=== PATIENT | male | born 1970 | race Caucasian/White ===

== ENCOUNTER 2021-01-01 00:37 | Outpatient (CLI) | payer MEDICAID, SELFPAY ==
--- NOTE | 2021-01-01 | DI.CTLCSR_ITS ---
Exam(s) CT CHEST LUNG CANCER SCREEN EXAM: CT CHEST LUNG CANCER SCREEN CLINICAL HISTORY: SCREENING FOR LUNG CA,CURRENT SMOKER, F17.210. TECHNIQUE: Imaging Protocol: Low Dose Technique CONTRAST MATERIAL: None COMPARISON: No exams were available for comparison FINDINGS: CHEST: LUNGS: There are no ominous pulmonary nodules. There are no confluent infiltrates. No pleural effusi ons. MEDIASTINUM: There is no obvious hilar nor mediastinal adenopathy. CARDIAC: Heart size is normal. There is no pericardial effusion.Caliber of the thoracic aorta is wit hin normal limits. No coronary artery calcification evident OTHER: OSSEOUS: No significant osseous lesions.. IMPRESSION: 1. No significant pulmonary nodules. No infiltrates. No pleural effusions. 2. No significant intrathoracic adenopathy. 3. Lung RADS Cat 1 - Negative: No nodules and definitely benign nodules Lung-RADS 1.0 CATEGORIES: Category 0 - Prior chest CT exam(s) being located for comparison. Category 1 - Annual screening in 12 months. No nodules or definitely benign nodules. Category 2 - Annual screening in 12 months. Benign appearance. Nodules with low likelihood of becomin g active cancer. Category 3 - 6-month follow-up. Probably benign. Short-term follow-up suggested. Nodules with low lik elihood of becoming active cancer. Category 4A - 3-month follow-up and CT/PET if >8 mm in size. Suspicious finding. Findings which requi re additional testing. Category 4B - Findings which require additional testing and tissue sampling. Modifier S- Potentially clinically significant findings (non lung cancer) RADIATION DOSE DELIVERED: 74.64mGy.cm Total DLP CTDIvol DATA REPOSITORY: All CT scans at this facility are submitted to the National Radiology Data Registry (NRDR) Dose Index Registry (DIR) with the [employer] (ACR). RADIATION OPTIMIZATION: All CT scans at this facility use at least one of these dose optimization te chniques: automated exposure control; mA and/or kV adjustment per patient size (includes targeted exa ms where dose is matched to clinical indication); or iterative reconstruction.
== END 2021-01-01 00:57 ==
PROVIDERS: Visit Provider Nurse Practitioner
DX: Z12.2 Encounter for screening for malignant neoplasm of respiratory organs (principal); F17.210 Nicotine dependence, cigarettes, uncomplicated
CPT/HCPCS: 71271

== ENCOUNTER → 2022-12-10 01:47 | Outpatient (CLI) | payer MEDICAID, SELFPAY ==
--- NOTE | 2022-12-10 09:33 | DI.CTLCSR_ITS ---
Exam(s) CT CHEST LUNG CANCER SCREEN EXAM: CT CHEST LUNG CANCER SCREEN CLINICAL HISTORY: SMOKER F17.210 SCREENING FOR LUNG CANCER TECHNIQUE: Imaging Protocol: Axial computed tomography images with coronal and sagittal reformatted images were created and reviewed COMPARISON: CT CT CHEST LUNG CANCER SCREEN from 01/01/2021 FINDINGS: Tracheobronchial tree: Patent where visualized. Pulmonary parenchyma: No consolidation or dominant measurable mass. No architectural distortion. Lung Nodules: None. Mediastinum and Daisy: No dominant adenopathy or fluid collection. The esophagus is unremarkable. Thyroid gland: Unremarkable. Lymph nodes: Unremarkable. Pleura: No effusion or pneumothorax. Heart: The heart is not dilated. Moderate coronary artery calcification is present. No pericardial e ffusion. Aorta: Thoracic aorta non-dilated.Atherosclerosis. Upper abdomen: Unremarkable. Soft Tissues: Unremarkable. Bones: Within normal limits. IMPRESSION: No pulmonary nodules. Lung RADS Cat 1 - Negative: No nodules and definitely benign nodules Lung-RADS 1.0 CATEGORIES: Category 0 - Prior chest CT exam(s) being located for comparison. Category 1 - Annual screening in 12 months. No nodules or definitely benign nodules. Category 2 - Annual screening in 12 months. Benign appearance. Nodules with low likelihood of becomin g active cancer. Category 3 - 6-month follow-up. Probably benign. Short-term follow-up suggested. Nodules with low lik elihood of becoming active cancer. Category 4A - 3-month follow-up and CT/PET if >8 mm in size. Suspicious finding. Findings which requi re additional testing. Category 4B - Findings which require additional testing and tissue sampling. Suspicious finding. Category 4X - Category 3 or 4 nodules with additional features or imaging findings that increases the suspicion of malignancy. Modifier S- Potentially clinically significant finding. (Non lung cancer) RADIATION DOSE DELIVERED: 77.78mGy.cm Total DLP 77.78mGy.cmTotal DLP DATA REPOSITORY: All CT scans at this facility are submitted to the National Radiology Data Registry (NRDR) Dose Index Registry (DIR) with the [employer] (ACR). RADIATION OPTIMIZATION: All CT scans at this facility use at least one of these dose optimization te chniques: automated exposure control; mA and/or kV adjustment per patient size (includes targeted exa ms where dose is matched to clinical indication); or iterative reconstruction.
== END ==
PROVIDERS: Visit Provider Nurse Practitioner
DX: Z12.2 Encounter for screening for malignant neoplasm of respiratory organs (principal); F17.210 Nicotine dependence, cigarettes, uncomplicated
CPT/HCPCS: 71271

== ENCOUNTER → 2023-10-28 01:27 | Outpatient (CLI) | payer OTHER, MEDICAID, SELFPAY ==
--- OUTSIDE RECORDS SUMMARY | 2023-10-28 01:35 | XMS_ITS | Encounter Summary ---
[facility] Organization [facility] [place] [address] Care Team Providers Care Client Executive Name Role Phone Munira Mac APRN Primary Care Provider [phone] Encounter Details Date Type Department Care Team (Late st Contact Info) Description 03/04/2019 Telephone [place] [id number] Lauren Wilson, RN Social History Tobacco Use Types Packs/Day Years Used Date Smoking Tobacco: Every Day Cigarettes Smokeless Tobacco: Former Chew Quit: 11/15/2012 Alcohol Use Standard Drinks/Week Comments Yes 0 (1 standard drink = 0.6 oz pur e alcohol) Maybe 4 beers a year Sex and Gender Information Value Date Recorded Sex Assigned at Not on file Gender Identity Not on file Sexual Orientation Not on file documented as of this encounter Miscellaneous Notes * Telephone Encounter - Lauren Wilson RN - 03/04/2019 3:05 PM EST Hua García :1970 Contact made with patient: I spoke to Mr. García at 3:05 PM regarding her upcoming Bilateral lumbar radiofrequency scheduled on 03/08/19 (date) scheduled at 2;30 (time) with Dr. Susie Samuels MD. Medication and Allergy reconciliation: 1. Changes were made in the telephone encounter per patient; marked as reviewed, and closed. 2. Patient confirmed no IVP dye allergy. 3. Have you had any steroid injections anywhere in your body within the last two weeks? no Arrival time: The patient was instructed to arrive at 2:00 (30 minutes prior to procedure start time - 60 minutesprior for RF patients with a pacemaker) on 03/08/19 (date of procedure). Home Health Rn: The patient was reminded that they need to have a batch mixing truck driver accompany them to his procedure who will remain onsite. Antibiotics/Skin assessment/Illness symptoms/Pain level assessment : 1. The patient confirmed that he is not taking antibiotics at this time. 2. The patient confirmed that he does not have any rashes, blisters, or skin breakdown on their body. 3. The patient confirmed that he does not have any active infections. 4. The patient confirmed that he does not have any symptoms of illness: fever, chills, cold, flu, nausea, vomiting. 5. The patient confirmed that he isstill experiencing significant pain. (Significant pain is defined as interfering with performing ADL.) Pain and Anti-anxiety Medications: 1. Nerve Block Procedure Patients: Patient was instructed NOT to take their pain medications on theday of the procedure and anti-anxiety medications are part of their daily medication regiment; theycan and should continue taking that medication. 2. All Other Procedure Patients: The patient was instructed that if they take daily pain or anti-anxiety medications, they can and should continue taking on the day of the procedure. Does patient have history of any diagnosed bleeding disorders: No Anticoagulants: No . NPO instructions given to patient: 1. Last solid food intake until 0830 (6 hours prior to procedure). 2. Clear liquids (franc murphy, tea, black coffee, water, grape juice, apple juice, or cranberry juice) only intake until 1230 (2 hours prior to procedure). NSAIDs: Does the patient take Aspirin/ASA? Yes The patient confirmed that he discontinued taking Aspirin on 03/02/19 (date). Does the patient take an NSAID? Yes The patient confirmed that he discontinued taking Mobic on 03/04/19 (date). Diabetic instructions: Patient was advised to inform their PCP regarding safe fasting and the NPO requirements for their upcoming procedure and given the [facility] Nurse Triage Line . Implant: Patient has pacemaker/defibrillator: No Prior to checking in at [employer], please be sure to empty your bladder. Patient confirmed understanding that if they do not follow the above their instructions, their procedure is likely to be cancelled. Lauren Wilson RN documented in this encounter Plan of Treatment Upcoming Encounters Date Type Department Care Team (Late st Contact Info) Description 12/01/2023 2:00 PM EDT [place] [address] Wale Huntley MD [address] [facility], [address] [place] [address] documented as of this encounter Visit Diagnoses Not on filedocumented in this encounter Care Teams Client Executive Relationship Specialty Start Date End Date Munira Mac APRN [address] [place] [address] PCP - General Family Medicine 08/12/16 documented as of this encounter
--- OUTSIDE RECORDS SUMMARY | 2023-10-28 01:35 | XMS_ITS | Encounter Summary ---
[place] [address] Care Team Providers Care Import Clerk Name Role Phone Munira Mac APRN Primary Care Provider [phone] Encounter Details Date Type Department Care Team (Latest Contact Info) Description 08/26/2023 Travel Social History Tobacco Use Types Packs/Day Years [...] on file documented as of this encounter Plan of Treatment Upcoming Encounters Date Type Department Care Team (Late st Contact Info) Description 12/01/2023 2:00 PM EDT Office [place] [address] Wale Huntley MD [address] [place] [address], [address] [place] [address] documented as of this encounter Visit Diagnoses Not on filedocumented in this encounter Care Teams Import Clerk Relationship Specialty Start Date End Date Munira Mac APRN [address] [place], [place] [id number] PCP - General Family Medicine 08/12/16 documented as of this encounter
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
--- OUTSIDE RECORDS SUMMARY | 2023-10-28 01:35 | XMS_ITS | Clinical Summary ---
Author Organization [facility] Address [facility] [place] [address] Care Team Providers Care Practicing Urologist Name Role Phone Munira Mac APRN Primary Care Provider [phone] [phone] Allergies Active Allergy Reactions Criticality Noted Date Comments Wool Hives 07/30/2017 Medications Medication Sig Dispensed Refills Start Date End Date Status FLUoxetine (PROZAC) 20 mg Capsule Take 20 mg by mouth 2 times daily. Active UNABLE TO FIND Pt uses Med Name: Pt uses ONE touchmeter and strips. Also takes multi dupplements:ABC plus, A&D,KLB6 Active CHOLECALCIFEROL, VITAMIN D3, 2,000 unit Capsule Take 2,000 Units by mouth daily. 10/30/2018 Active diphenhydramine HCl (SLEEP AID, DIPHENHYDRAMINE, ORAL) 1 tablet. Active famotidine (Pepcid) 20 mg Tablet 20 mg daily. 10/04/2020 Active acetaminophen (Tylenol Extra Strength) 500 mg Tablet 500 mg Every 6 hours. Active gabapentin (Neurontin) 100 mg Capsule 100 mg every 8 hours. 11/15/2020 Active lisinopriL (Zestril) 5 mg Tablet 5 mg Daily. Active metFORMIN (GLUCOPHAGE) 1,000 mg Tablet 1,000 mg daily. 10/15/2020 Active loperamide (IMODIUM A-D) 2 mg Tablet Take 2 mg by mouth 4 times daily as needed for Diarrhea. Maximum 16 mg in 24 hours Active albuterol sulfate (ProAir RespiClick) 90 mcg/actuation Aerosol Powdr Breath Activated Inhale 108 mcg into the lungs every 4 hours as needed. Active nicotine polacrilex (NICORETTE) 4 mg Gum Take 4 mg by mouth as needed for Smoking cessation. Active atorvastatin (Lipitor) 40 mg tablet Take 40 mg by mouth daily. 06/24/2023 Active nabumetone (Relafen) 500 mg tablet Take 500 mg by mouth 2 times daily. 07/31/2023 Active propranolol LA (Inderal LA) 60 mg ER 24 hr capsuleIndications: essential tremor Take 1 capsule by mouth daily. Indications: essential tremor 30 capsule 3 08/26/2023 Active Active Problems Problem Noted Date Diagnosed Date Lumbosacral spondylosis without myelopathy 02/08 Chronic low back pain 06/23/2018 Obesity (BMI 30-39.9) 08/18/2017 DM2 (diabetes mellitus, type 2) 08/18/2017 Gastroesophageal reflux 08/18/2017 Hypertension 08/18/2017 Former moderate cigarette smoker (10-19 per day) 08/18/2017 Overview (08/18/2017): Quit ~ 2013. Depression 08/18/2017 Anxiety 08/18/2017 PTSD (post-traumatic stress disorder) 08/18/2017 ONDINA (obstructive sleep apnea) 08/18/2017 Overview (08/18/2017): Dx 2016, started on CPAP. As of August 2017: no CPAP use d/t sleeping in a tent without electricity. Carpal tunnel syndrome on left 07/30/2017 Cubital tunnel syndrome on left 07/30/2017 Osteoarthritis of spine with radiculopathy, cerv ical region 05/12/2017 Encounters Date Type Department Care Team Description 08/26/2023 11:00 AM EDT [place] [id number] Wale Huntley MD Essential tremor 08/26/2023 Travel from Last 3 Months Immunizations Name Administration Dates Next Due Influenza Unspecified Formulation 01/18/2017 Family History Medical History Relation Comments Cancer Maternal Grandmother Cancer Mother Relation Status Comments Maternal Grandmother Mother Social History Tobacco Use Types Packs/Day Years [...] on file Sexual Orientation Not on file Last Filed Vital Signs Vital Sign Reading Time Taken Comments Blood Pressure 129/71 08/26/2023 10:59 AM EDT Pulse 66 08/26/2023 10:59 AM EDT Temperature 36.6 ??C (97.9 ??F) 10/09/2017 8:52 AM ED T Respiratory Rate 16 02/08/2019 2:25 PM EDT Oxygen Saturation 96% 11/20/2020 9:02 AM EDT Inhaled Oxygen Concentration - - Weight 83.9 kg (185 lb) 08/26/2023 10:59 AM EDT reported Height 167.6 cm (5' 6) 08/26/2023 10:59 AM EDT Body Mass Index 29.86 08/26/2023 10:59 AM EDT Plan of Treatment Upcoming Encounters Date Type Department Care Team ([facility] st Contact Info) Description 12/01/2023 2:00 PM EDT [place] [address] Wale Huntley MD [address] [place] [address], [address] [place] [address] Health Maintenance Due Date Last Done Comments CT Colonography 1969 Colonoscopy 1969 Colorectal Cancer Screening 1969 FIT DNA 1969 FIT 1969 Sigmoidoscopy (10 year) with FIT yearly 1969 Sigmoidoscopy 1969 Pneumococcal Vaccine: At-Risk 5-64yrs (1 of 2 - PCV) 1 DM Creatinine yearly 1979 DM Opthalmology Exam 1979 DM Urine Microalbumin yearly 1979 Hepatitis B vaccine (0-59 yrs) (1) 01/25/1988 Tdap adult 01/25/1988 Tetanus vaccine 01/25/1988 DM Hemoglobin A1c 02/15/2017 11/15/2016 Zoster vaccine (1 of 2) 2019 Covid-19 Vaccine (1 - season) 2022 Influenza (Flu) vaccine (1 o f 1 - Influenza standard series) 12/14/2023 01/18/2017 HIV screen Completed 11/15/2016 Hepatitis C Screening Completed 11/15/2016 Procedures Procedure Name Priority Date/Time Associated Diagnosis Comments HIV SCREEN, 4TH GENERATION (MC/CGP/APD/NLH) Routine 11/15/2016 12:04 PM EDT Idiopathic peripheral neuropathy HEMOGLOBIN A1C Routine 11/15/2016 12:04 PM EDT Idiopathic peripheral neuropathy HEPATITIS C ANTIBODY Routine 11/15/2016 12:04 PM EDT Idiopathic peripheral neuropathy from Last 3 Months or Most Recently Relevant to Health Maintenance Results * Hepatitis C Antibody (11/15/2016 12:04 PM EDT) Hepatitis C Ab Negative Negative [facility] Comment: An updated Hepatitis C Ab assay reagent was implemented on 06/26/16. Please contact Dr. Deras at [phone] with any questions or concerns. Blood specimen (specimen) 11/15/2016 12:04 PM EDT 11/15/2016 12:12 PM EDT Narrative Resulting Agency Comment Spec In Lab Mark Bowers MD IMMUNOLOGY ORDERABLE S [facility] [place] [address] * HIV Screen, 4th Generation (11/15/2016 12:04 PM EDT) HIV-1/2 Ab and Ag Negative Negative [facility] Comment: This 4th Generation HIV test screens for the presence of the HIV-1 p24 antigen as well as antibodies reactive against HIV-1 and HIV-2. A negative screen does not rule out an acute HIV infection. If acute HIV infection is suspected, testing should be repeated in 2 - 3 weeks or HIV nucleic acid testing performed. Blood specimen (specimen) 11/15/2016 12:04 PM EDT 11/15/2016 12:12 PM EDT Narrative Resulting Agency Comment Spec In Lab Mark Bowers MD IMMUNOLOGY ORDERABLE S [facility] [place] [address] * (ABNORMAL) Hemoglobin A1c (11/15/2016 12:04 PM EDT) Hemoglobin A1C 7.9(H) 4.3 - 5.6 % [facility] Comment: Reference Range: 4.3 - 5.6% 5.7 - 6.4% - Increased Risk of Developing Diabetes Mellitus >=6.5% - Consistent with diagnosis of Diabetes Mellitus In the absence of hyperglycemia (i.e. plasma glucose > 200 mg/dL) or classic symptoms of hyperglycemia a repeat measurement of HbA1c should be performed on a separate sample to confirm the diagnosis. Diagnosis and Classification of Diabetes Mellitus, Diabetes Care 2013; 36: Suppl. 1, S67-74 Est Avg Gluc 180 mg/dL [facility] Comment: eAG equivalents for HbA1c percentages: HbA1c(%) ?eAG(mg/dL) 6.0 ?126 6.5 ?140 7.0 ?154 7.5 ?169 8.0 ?183 8.5 ?197 9.0 ?212 9.5 ?226 10.0 ? 240 Limitations: The eAG calculation has not been validated on women, individuals below 18 years old and above 70 years old, and individuals with hemoglobinopathies. Additional resources are available on the ADA website. Juno NORTON, Doni J, Catrachita R, et al. ??Translating the A1C assay into estimated average glucose values. ??Diabetes Care 2008:31(8):4362-8502. Blood specimen (specimen) 11/15/2016 12:04 PM EDT 11/15/2016 12:12 PM EDT Narrative Resulting Agency Comment Spec In Lab Mark Bowers MD CHEMISTRY ORDERABLES [facility] [place] [address] from Last 3 Months or Most Recently Relevant to Health Maintenance Advance Directives * Full Code (Latest Code Status on File) Date Activated Date Inactivated Comments 10/09/2017 6:49 AM 10/09/2017 1:23 PM Question Answer Comments Does patient have capacity to make decision: Yes Care Teams Practicing Urologist Relationship Specialty Start Date End Date Munira Mac, MARK [address] [place] [address] PCP - General Family Medicine 08/12/16
--- OUTSIDE RECORDS SUMMARY | 2023-10-28 01:35 | XMS_ITS | Encounter Summary ---
[place] [address] Care Team Providers Care Quill Winder Name Role Phone Munira Mac APRN Primary Care Provider [phone] [phone] Reason for Referral * Consultation (Routine) - Closed Specialty Diagnoses / Procedures Referred By Conttalat t Referred To Contact Neurology Diagnoses Tremor of both hands PLEASE EVAL AND TREAT FOR BILATERAL HAND TREMOR L>R. Munira Mac APRN [address] [place] [address] [facility] Neu[facility] [address] [place] [phone] Referral ID Status Reason Start Date Expiration Date V isits Requested Visits Authorized [id number] Closed Consult, Test & Treat PCP Updated and/or Approved 05/13/2023 05/12/2024 6 6 Encounter Details Date Type Department Care Team (Latest Contact Info) Description 05/13/2023 Transcribe Orders eDH Incoming Referrals [phone] Munira Mac APRN [address] [place] [address] Tremor of both hands Social History Tobacco Use Types Packs/Day Years [...] Upcoming Encounters Date Type Department Care Team ([facility] st Contact Info) Description 12/01/2023 2:00 PM EDT [place] [address] Wale Huntley MD [address] [place] [address], [address] [place] [address] Scheduled Referrals Name Type Priority Associated Diagnoses Orde r Schedule Referral to Neurology Outpatient Referral Routine Tremor of both hands Ordered: 05/13/2023 documented as of this encounter Visit Diagnoses Diagnosis Tremor of both hands documented in this encounter Care Teams Quill Winder Relationship Specialty Start Date End Date Munira Mac APRN [address] [place] [id number] PCP - General Family Medicine 08/12/16 documented as of this encounter
--- OUTSIDE RECORDS SUMMARY | 2023-10-28 01:35 | XMS_ITS | Encounter Summary ---
Author Organization [facility] Address [facility] [place] [address] Care Team Providers Care Resistance Brazer Name Role Phone Munira Mac APRN Primary Care Provider [phone] [phone] Reason for Visit * Auth/Cert Specialty Diagnoses / Procedures Referred By Kwaku t Referred To Contact Diagnoses 724.2, 338.29 (ICD-9-CM) - M54.5, G89.29 (ICD-10-CM) - Chronic bilateral low back pain without sciatica Procedures PRO DSTR PARAVERTEBRAL FCT JNT NRVES LUMBAR OR SACRAL SINGLE PRO DSTR PARAVERTEBRAL FCT JNT NRVES LUMBAR OR SACRAL ADDL RADIOFREQUENCY ABLATION,SINGLE FACET JOINT,LUMBAR (WRVU 3.78) RADIOFREQUENCY ABLATION,EACH ADD'L FACET JOINT,LUMBAR/SACRAL (WRVU 1.16) Referral ID Status Reason Start Date Expiration Date Visits Re quested Visits Authorized [id number] 1 1 Encounter Details Date Type Department Care Team (Late st Contact Info) Description 03/08/2019 3:15 PM EST Ancillary [place] [address] Susie Samuels MD [facility] [place] [address] Pain Social History Tobacco Use Types Packs/Day Years [...] 2:00 PM EDT [place] [address] Wale Huntley MD [address] [place] [address], [address] [place] [address] Pending Results Name Type Priority Associated Diagnoses Date /Time Film Library- Storage Only pain Clinic C-[facility] Storage Only Routine Pain 03/05/2019 10:23 AM EST documented as of this encounter Visit Diagnoses Diagnosis Pain Generalized pain documented in this encounter Care Teams Resistance Brazer Relationship Specialty Start Date End Date Munira Mac APRN [address] [place] [phone] PCP - General Family Medicine 08/12/16 documented as of this encounter
--- OUTSIDE RECORDS SUMMARY | 2023-10-28 01:35 | XMS_ITS | Encounter Summary ---
Author Organization [facility] [place] [address] Care Team Providers Care Bilingual Nanny Name Role Phone Munira Mac APRN Primary Care Provider [phone] Reason for Visit * Reason Comments Tremors B/l hand tremor, L > R * Consultation (Routine) - Closed Specialty Diagnoses / Procedures Referred By Contac t Referred To Contact Neurology Diagnoses Tremor of both hands PLEASE EVAL AND TREAT FOR BILATERAL HAND TREMOR L>R. Munira Mac APRN [address] [place] [address] [facility] [address] [place] [phone] Referral ID Status Reason Start Date Expiration Date V isits Requested Visits Authorized [id number] Closed Consult, Test & Treat PCP Updated and/or Approved 05/13/2023 05/12/2024 6 6 Encounter Details Date Type Department Care Team ([facility] Contact Info) Description 08/26/2023 11:00 AM EDT Office [place] [address] Wale Huntley MD [address] [place] [address], [address] [place] [address] Essential tremor Social History Tobacco Use Types Packs/Day Years [...] Pulse 66 08/26/2023 10:59 AM EDT Temperature - - Respiratory Rate - - Oxygen Saturation - - Inhaled Oxygen Concentration - - Weight 83.9 kg (185 lb) 08/26/2023 10:59 AM EDT reported Height 167.6 cm (5' 6) 08/26/2023 10:59 AM EDT Body Mass Index 29.86 08/26/2023 10:59 AM EDT documented in this encounter Patient Instructions * Patient Instructions* Wale Huntley MD - 08/26/2023 11:00 AM EDT Plan for essential tremor: - Start taking propranolol 60mg nightly. Script was sent to your pharmacy. - Future options will include primidone. - Start using heavy weighted utensils, gloves, mugs, pens, and wrist bands for more stability. - Mind-body exercises with relaxation, breathing, yoga, meditation, and mindfulness practices are known to help tremor significantly. - Follow-up in 3 months or sooner as needed. * Attachments The following attachments cannot be sent through Care Everywhere. * Tremor: Essential (Indian) * Propranolol Extended Release Oral Capsule (PROPRANOLOL EXTENDED-RELEASE - ORAL) (Indian) documented in this encounter Progress Notes * Wale Huntley MD - 08/26/2023 11:00 AM EDT Images from the original note were not included. [facility] DEPARTMENT OF NEUROLOGY GENERAL NEUROLOGY CLINIC INITIAL VISIT Patient name: Hua García Date of : 1970 Referring provider: Munira Mac APRN [address] [place] [address] PCP: Munira Mac APRN [address] [place] [address] Date: 08/26/23 Time: 11:00 AM CC: Chief Complaint Patient presents with Tremors B/l hand tremor, L > R HPI: Hua García is a 53 y.o. right-handed man, undomiciled, and smoker with a history of anxiety/depression CTS on the L, chronic LBP, DMII (last known HbA1c 7.1 08/2023, at worst in the 8s), GERD, HTN, ONDINA, OA, and PTSD referred to the neurology clinic for evaluation of b/l L > R hand tremor x 5 years. History obtained from patient and chart review. PCP and referring provider is Munira Mac APRN. Most recent PCP note reviewed (04/2023) Tremor Review Onset: 2019, now worsened. Cannot hold cup of coffee without spilling it. First noticed in the L hand at that time, now R hand involved. Location/spread: L > R hands. No changes in voice. No shaking or tremors in the head/neck area. Present at rest?: Denies. Better: Denies. Worse: Holding cup of coffee, utensils History of EtOH: 4 beers/1 year. No other drug use. No changes with respect to EtOH use given how far apart they are. Caffeine/anxiety: anxiety/PTSD at baseline. No changes in the tremor. No changes with caffeine intake. He drinks about 2-3 10 oz cups of coffee daily. He denies soda, energy drink, and sugar drink use. Recent medication change(s): No side effects from recent additions. Neuro/psychoactive medications: Fluoxetine 20mg BID -- has taken this for a long time. Works very good for me. Family Hx: Grandfather with same/similar similar symptoms, unclear age of onset. Head tremor as well with progression. Some trouble getting out of a bed/car/chair due to pain and weakness. Chronic. No issues with chewing or swallowing food. Handwriting has changed needs to hold both hands together to be readable. He has dropped a few cups of coffee in him on on the floor. Hard to use a spoon or fork. Has been bring the whole bowl to his mouth when eating soups. Smoking -- just under 1 pack per day. Tobacco vape every now and then. Drinks 3-4 beers in an entire year. He denies marijuana use. No other toxic habits. He is undomiciled -- has been staying withmother or at friend's places over the winter, will be saying in tent over the summer. He has not been working since at least 1995 -- had to leave due to mental health/severe PTSD issues. 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 The rest of a neurologic review of systems is otherwise unremarkable. PMHx/PSHx: Past Medical History: Diagnosis Date Anxiety 08/18/2017 Chronic low back pain 06/23/2018 Depression 08/18/2017 DM2 (diabetes mellitus, type 2) 08/18/2017 Obesity (BMI 30-39.9) 08/18/2017 Osteoarthritis of spine with radiculopathy, cervical region 05/12/2017 PTSD (post-traumatic stress disorder) 08/18/2017 Past Surgical History: Procedure Laterality Date PRO ENDOSCOPIC WRIST SURG RELEASE TRANSVERSE CARPAL LIGAMENT Left 10/09/2017 ENDOSCOPY WRIST W/ RELEASE TRANSVERSE CARPAL LIGAMENT (WRVU 6.39) performed by [facility] MA[facility] PRO REVISE ULNAR NERVE AT ELBOW Left 10/09/2017 NEUROPLASTY &/OR TRANSPOSITION, ULNAR NERVE AT ELBOW (WRVU 7.26) performed by Luther Veliz MD at [facility] MAIN OR Meds: Current Outpatient Medications on File Prior to Visit Medication Sig Dispense Refill atorvastatin (Lipitor) 40 mg tablet Take 40 mg by mouth daily. nabumetone (Relafen) 500 mg tablet Take 500 mg by mouth 2 times daily. famotidine (Pepcid) 20 mg Tablet 20 mg daily. acetaminophen (Tylenol Extra Strength) 500 mg Tablet 500 mg Every 6 hours. lisinopriL (Zestril) 5 mg Tablet 5 mg Daily. metFORMIN (GLUCOPHAGE) 1,000 mg Tablet 1,000 mg daily. loperamide (IMODIUM A-D) 2 mg Tablet Take 2 mg by mouth 4 times daily as needed for Diarrhea. Maximum 16 mg in 24 hours albuterol sulfate (ProAir RespiClick) 90 mcg/actuation Aerosol Powdr Breath Activated Inhale 108 mcg into the lungs every 4 hours as needed. FLUoxetine (PROZAC) 20 mg Capsule Take 20 mg by mouth 2 times daily. UNABLE TO FIND Pt uses Med Name: Pt uses ONE touchmeter and strips. Also takes multi dupplements:ABC plus, A&D,KLB6 diphenhydramine HCl (SLEEP AID, DIPHENHYDRAMINE, ORAL) 1 tablet. gabapentin (Neurontin) 100 mg Capsule 100 mg every 8 hours. nicotine polacrilex (NICORETTE) 4 mg Gum Take 4 mg by mouth as needed for Smoking cessation. CHOLECALCIFEROL, VITAMIN D3, 2,000 unit Capsule Take 2,000 Units by mouth daily. No current facility-administered medications on file prior to visit. Allergies: Allergies Allergen Reactions Wool Hives Family Hx: Family History Problem Relation Age of Onset Cancer Mother Cancer Maternal Grandmother Social Hx: Social History Occupational History Not on file Tobacco Use Smoking status: Every Day Current packs/day: 1.00 Types: Cigarettes Smokeless tobacco: Former Types: Chew Quit date: 11/15/2012 Vaping Use Vaping status: Never Used Substance and Sexual Activity Alcohol use: Yes Comment: Maybe 4 beers a year Drug use: Yes Types: Marijuana Sexual activity: Not on file ROS: All 12 other systems were reviewed and are noncontributory aside from that noted in the HPI. Exam: Vitals: 08/26/23 1059 BP: 129/71 BP Location (NBP): Left arm Patient Position: Sitting BP Cuff Sizes: Large Adult (32-43 cm) Pulse: 66 Weight: 83.9 kg (185 lb) Height: 167.6 cm (5' 6) General Exam: Appearance: Well-appearing, NAD. HEENT: NCAT. Unable to visualize fundi. Skin: No rash or obvious lesions on exposed skin. Observed events: - None. Body mass index is 29.86 kg/m??. Neuro Exam: Mental Status: Awake and alert. Attentive. AAOx3 (to person, place/location, and time/date). Speech crisp, clear, nonaphasic, and nondysarthric. Intact naming of high and low-frequency objects, repetition, and comprehension. Able to follow 3-step commands across the midline. Attends to both sides without obvious neglect. CN: II (optic), III (oculomotor), IV (trochlear), & (abducens) VFF, EOMI, PERRL. No nystagmus, gaze deviation, ptosis, or skew. V (trigeminal) - V1, V2, V3 Intact to light touch in V1-V3 distributions bilaterally. Masseters symmetric bilaterally. VII (facial) Face symmetric. No abnormal lacrimation, salivation, or hyperacusis. VIII (vestibulocochlear) Hearing intact to voice. IX & X (glossopharyngeal & vagus) Symmetric elevation of the soft palate with speech. Uvulais midline. XI (spinal accessory) Shoulder shrug 5/5 bilaterally. XII (hypoglossal) Protrusion of the tongue is normal. Tongue midline. Motor: Good tone/bulk. No resting tremor or adventitious movements seen. No pronator drift or finger curl present. Finger tapping rapid and symmetric b/l. B/l L > R moderate/high frequency postural tremor with both hands outstretched in front of the body and with postural hold. There is a notable action component present with end-point. Left Right Deltoid 5/5 5/5 Biceps 5/5 5/5 Triceps 5/5 5/5 Wrist flexion 5/5 5/5 Wrist extension 5/5 5/5 Finger flexion 5/5 5/5 Finger extension 5/5 5/5 Hip flexion 5/5 5/5 Knee flexion 5/5 5/5 Knee extension 5/5 5/5 Plantarflexion 5/5 5/5 Dorsiflexion 5/5 5/5 Sensory: Sensation intact to light touch bilaterally in the distal upper and lower extremities. Reflexes: Left Right Brachioradialis 2+ 2+ Biceps 2+ 2+ Triceps 2+ 2+ Patellar 2+ 2+ Ankle 1+ 1+ Ankle clonus absent absent Plantar deferred deferred Leos's negative negative Coordination/Gait: [id number] intact bilaterally. Mild dysmetria with end-point correction. Rapid alternating movement s No dysmetria. Gait slowed, antalgic, cautious. Normal base. Some difficulty with getting out of chair to standing -- chronic per pt. Labs/Data/Results: - No recent prior labs/data available. Imaging: - No recent prior neuroimaging. Prior imaging: - MRI C-spine w/o contrast (12/01/16) Exam limited due to patient motion. Mid cervical spondylosis most advanced at C5-6 and C6-7 where there is moderate to severe left-sided neural foraminal stenosis. Mild central canal narrowing at C5-C6 and mild to moderate canal narrowing at C6-7. Assessment: Problem List Items Addressed This Visit None Visit Diagnoses Essential tremor Relevant Medications propranolol LA (Inderal LA) 60 mg ER 24 hr capsule 53 y.o. right-handed man, undomiciled, and smoker with a history of anxiety/depression CTS on the L, chronic LBP, DMII (last known HbA1c 7.1 08/2023, at worst in the 8s), GERD, HTN, ONDINA, OA, and PTSD referred to the neurology clinic for evaluation of b/l L > R hand tremor x 5 years. Neurological examination notable for b/l L > R moderate/high frequency postural tremor with both hands outstretched in front of the body, c/w an essential tremor. No cogwheeling, increased tone, bradykinesia, or new gait abnormalities -- patient with chronic slow, painful gait 2/2 back pain and arthritic changes. No recent prior labs/data or neuroimaging. Impression: #Essential tremor Recommendations: -Trial of propranolol 60mg XR QHS. Script was sent to patient's pharmacy. Side effects were reviewed. He was encouraged to stay well-hydrated, especially with the summer months coming. Future medication options to consider include primidone, topiramate, gabapentin. -Lifestyle modifications discussed with patient and outlined in patient instructions. -Patient expressed understanding of the above. All questions answered. -RTC 3 months or sooner prn. Thank you for your referral and opportunity to participate in [facility]'s care. Patient Instructions Plan for essential tremor: - Start taking propranolol 60mg nightly. Script was sent to your pharmacy. - Future options will include primidone. - Start using heavy weighted utensils, gloves, mugs, pens, and wrist bands for more stability. - Mind-body exercises with relaxation, breathing, yoga, meditation, and mindfulness practices are known to help tremor significantly. - Follow-up in 3 months or sooner as needed. Elements of this note may have been dictated using voice recognition software. Please forgive any typos or word substitutions. I spent a total of 60 minutes on this [id number] encounter on the date of service. This included: [x] Preparing to see the patient, review of laboratory test results and medical record [x] Independently interpreting neuroimaging or neurophysiological results [x] Obtaining and/or reviewing separately obtained history (eg, outside records, caregiver) [x] Counseling and educating the patient/family/caregiver [] Referring and communicating with other health director of patient care [x] Documenting clinical information in the electronic or other health record [] Care coordination Wale Huntley MD Composite Worker Department of Neurology [facility] [address] P F documented in this encounter Plan of Treatment Upcoming Encounters Date Type Department Care Team (Late st Contact Info) Description 12/01/2023 2:00 PM EDT Office [place] [address] Wale Huntley MD [address] [place] [address] [address] [place] [address] documented as of this encounter Visit Diagnoses Diagnosis Essential tremor Essential and other specified forms of tremor documented in this encounter Care Teams Bilingual Nanny Relationship Specialty Start Date End Date Munira Mac APRN [address] [place] [address] PCP - General Family Medicine 08/12/16 documented as of this encounter
--- OUTSIDE RECORDS SUMMARY | 2023-10-28 01:36 | XMS_ITS | Encounter Summary ---
Author Organization [facility] Address [facility] [place] [address] Care Team Providers Care Motor Assembler Name Role Phone Munira Mac APRN Primary Care Provider [phone] Reason for Referral * Consultation (Routine) - Closed Specialty Diagnoses / Procedures Referred By Contac t Referred To Contact Orthopaedics Diagnoses cervical radiculopathy left, not responding to LAVINIA/ MRI 12/11/16 in eD Mark Bowers MD [facility] [place] [address] [facility] [place] [phone] Referral ID Status Reason Start Date Expiration Date V isits Requested Visits Authorized [id number] Closed Consult, Test & Treat 05/29/2017 05/29/2018 1 1 * Consultation (Routine) - Closed Specialty Diagnoses / Procedures Referred By Contac t Referred To Contact Orthopaedics Diagnoses Carpal tunnel syndrome, bilateral Ulnar neuropathy of left upper extremity Mark Bowers MD [facility] [place] [address] Luther Veliz MD [facility] [place] [address] Referral ID Status Reason Start Date Expiration Date V isits Requested Visits Authorized [id number] Closed Consult, Test & Treat 05/29/2017 05/29/2018 1 1 Encounter Details Date Type Department Care Team (Latest Contact Info) Description 05/29/2017 11:15 AM EST Office Visit Neurology at [facility] [place] [address] Mark Bowers MD [facility] [place] [address] Carpal tunnel syndrome, bilateral; Ulnar neuropathy of left upper extremity; Cervical disc disorder with radiculopathy of cervicothoracic region Social History Tobacco Use Types Packs/Day Years Used Date Smoking Tobacco: Former Cigarettes Q uit: 11/15/2012 Smokeless Tobacco: Former Chew Quit: 11/15/2012 Alcohol Use Standard Drinks/Week Comments Yes 0 (1 standard drink = 0.6 oz pur e alcohol) Very rare Sex and Gender Information Value Date Recorded Sex Assigned at Not on file Gender Identity Not on file Sexual Orientation Not on file documented as of this encounter Progress Notes * Mark Bowers MD - 05/29/2017 11:15 AM EST NEUROLOGY CLINIC [facility] [place] [address] Facsimile: 05/29/2017 Patient name: Hua García Date of : 1970 Referring provider: Munira Mac APRN [address] [place] [id number] Initial Visit: 46 Y M referred for evaluation of left sided paresthesia. He says that he has electric feeling fromneck to the finger tips on the left side. Its not constant. It can happen in sitting of standing position. Starting to lose sensation in his fingertip on the left. He feels some weakness in left hand. Sometime he has to shake his left UE. He was in [facility] for some years. He had diabetes which was found to be the case again after he was discharged in December. PMH: DM2, HTN, PTSD. Anxiety. Social: He is currently homeless . Alcohol rare. No smoking x 4 years. Family: No family history of neurologic illness. 12/25/2016: He was previously seen for CTS, cervical radiculopathy and diabetic neuropathy. He was found to have cervical DJD on MRI and was planned to be seen by pain clinic for consideration of LAVINIA. 05/29/2017: He was previously seen for neuropathy and cervical radiculopathy. . Referred for LAVINIA consideration and has gotten injections. He says he couldn't tolerate it as his BP shot up. He says his A1C got down to 7.4. Feet are better now. He has completed authorized PT visit. Review of systems: Constitutional: No fever/chills Eyes: Normal vision. ENT: No nose bleeds, no neck pain Cardiovascular: No chest pain or palpitations Respiratory: No cough or shortness of breath Gastrointestinal: No nausea, vomiting, diarrhea or constipation Genitourinary: No dysuria, no incontinence Hematologic: No bleeding or bruising Endocrine: No heat or cold intolerance Musculoskeletal: Joint pains + Integumentary: No skin rashes. Neurologic: See HPI Psychiatric: + depression, anxiety, sleep apnea, normal sleep Allergy/ Immunology: Allergy as documented. [x] Review of systems otherwise negative PMHx: No past medical history on file. No past surgical history on file. Medications: Current Outpatient Prescriptions on File Prior to Visit Medication Sig Dispense Refill ??? gabapentin (NEURONTIN) 300 mg Capsule Take 1 capsule by mouth 3 times daily. 90 capsule 5 ??? b complex vitamins Tablet Take 1 tablet by mouth daily. ??? melatonin 3 mg Tablet Take 3 mg by mouth as needed. ??? calcium-vitamin D3 (CALCIUM 600 + D,3,) 600 mg(1,500mg) -200 unit Tablet Take 1 tablet by mouth. ??? aspirin 81 mg Tablet, Delayed Release (E.C.) Take 81 mg by mouth daily. ??? metFORMIN (GLUCOPHAGE) 500 mg Tablet Take 1,000 mg by mouth 2 times daily. ??? lisinopril (PRINIVIL;ZESTRIL) 5 mg Tablet Take 5 mg by mouth daily. ??? ranitidine (ZANTAC) 150 mg Capsule Take 150 mg by mouth every evening. ??? cyclobenzaprine (FLEXERIL) 10 mg Tablet Take 10 mg by mouth every 8 hours as needed for Muscle spasms. ??? acetaminophen (TYLENOL) 500 mg Tablet Take 1,000 mg by mouth every 6 hours as needed for Pain. ??? meloxicam (MOBIC) 15 mg Tablet Take 15 mg by mouth daily as needed for Pain. ??? simvastatin (ZOCOR) 10 mg Tablet Take 10 mg by mouth nightly. No current facility-administered medications on file prior to visit. Allergies: No Known Allergies Family History: No family history on file. Social History: reports that he quit smoking about 4 years ago. His smoking use included Cigarettes. He quit smokeless tobacco use about 4 years ago. His smokeless tobacco use included Chew. He reports that he drinks alcohol. He reports that he does not use illicit drugs. No flowsheet data found. Vitals: There were no vitals taken for this visit. Physical Examination: General: alert, NAD. High BMI ENT, Throat: oral mucosa moist, no thrush, no carotid bruits, no thyromegaly, no lymphadenopathy Cardiovascular: Rate regular, S1S2 normal, no murmur Respiratory: Symmetric expansion, lungs clear to auscultation Gastrointestinal: Abdomen distended soft, nontender Extremity: no edema Skin: No rashes noted Neurological Examination o Higher functions: - Speech: fluent, no aphasia/dysarthria or dysphonia - Alert and oriented. o Cranial Nerves - II-XII: Pupils bilaterally equal and symmetric conjugate gaze, reacting to light. No ptosis/nystagmus. Vision normal. No field deficits. EOMI. No facial droop. No weakness of jaw/uvula/ palate - Fundus: Normal vessels and disc margins. o Reflexes - +1 Bilaterally biceps, knee and ankle. o Motor and Coordination - Normal tone, bulk strength and coordination of right and left sided muscles o Sensory - Reduced sensation in ulnar distribution of left hand. o Skull and Spine/ Gait - Cervical paraspinal tenderness on the left side. - Normal gait - Tandem: Imbalance + LABS/IMAGING: Labs GENERAL THYROID: Lab Results Component Value Date TSH 2.67 11/15/2016 Folate Lab Results Component Value Date SFOLATE 14.5 11/15/2016 ESR Lab Results Component Value Date SEDRATE 13 11/15/2016 CRP Lab Results Component Value Date CRP 12.9 (H) 11/15/2016 B12 Lab Results Component Value Date [id number] 333 11/15/2016 CKNo results found for: CK Angiotensin ConvertaseNo results found for: KRISHAN INFECTIONS HIVNo results found for: HIV12 HEPATITIS PANEL Lab Results Component Value Date HEPCAB Negative 11/15/2016 AUTOIMMUNE PANEL LASHONDA Lab Results Component Value Date LASHONDA Neg 11/15/2016 DSDNANo results found for: DNAABDS Sherrill results found for: ELOY C3,C4, COMPLEMENTSNo results found for: C3, C4 CARDIOLIPIN, LUPUSNo components found for: CARDIOLIPINANTIBODY, LUPUS, ANTICOAGULANT CELIAC: TTG, GLIADIN, ENDOMYSIALNo components found for: TTRANSGLUTAMINASEANTIBODY ANTIGLIADINANTIBODY VASCULITIS: C,P,ANCA, MPONo results found for: PANCA, CANCA, MYELOP, PR3AB NMONo components found for: NEUROMYELITISOPTICAANTIBODY MG: ACHRAB, Anit MuSK, LEMSNo components found for: ACETYLCHOLINERECEPTORABBINDING, LEMSANTIBODY, ANTISKELETALMUSCLEANTIBODY CRYOGLOBULINSNo components found for: CRYOGLOBULINS METABOLIC CERULOPLASMINNo components found for: CERULOPLASMIN BETA 2 MICROGLOBULINNo results found for: B2MG Lab Results Component Value Date TPROTEINPEP 6.9 11/15/2016 ALBELECT 4.37 11/15/2016 ALPHA1 0.16 11/15/2016 ALPHA2 0.70 11/15/2016 GAMMAGLOB 0.89 11/15/2016 APB1 None Detected 11/15/2016 CORTISOLNo results found for: CORTISOL LDH No results found for: LDH NUTRITIONAL VITAMIN D Lab Results Component Value Date 25OHVITD 28 (L) 11/15/2016 PRE ALBUMIN Lab Results Component Value Date PREALBUMIN 28 11/15/2016 FERRITINNo results found for: IRON COPPER Lab Results Component Value Date COPPER 1.22 11/15/2016 PERIPHERAL NEUROPATHY HEMOGLOBIN A1C Lab Results Component Value Date HA1C 7.9 (H) 11/15/2016 LIPID PROFILENo results found for: CHLPL, HDL, CHOLHDL, TRIG, LDLCHOL, LDLDIRECT LATASHA 65No results found for: [id number] ANTI GM1,ANTI SGPG, MAG@RESUFAST (MAGAUTOAB,SGPG,MAGWB,GM1AB)@ HEAVY METAL SCREENNo results found for: LEAD, ARSENIC METHYLMLONIC ACID Lab Results Component Value Date METHYLMAL 0.44 (H) 11/15/2016 IgA, IGG No results found for: IGA, IGG CSF PANEL Lab Results Component Value Date LYMEAB Neg 11/15/2016 PARANEOPLASTIC PANEL No results found for: PARANEOINTRP, ANNA1, ANNA2, ANNA3, AGNA1, PCA1, PCA2, PCATYPETR, AMPHIPHYSIN,[id number], STRIATMSCLAB, CACHABPQTYPE, CACHABNTYPE, ACHRBINDAB, NEUROKCHAB, NMDARECEPTOR, [id number] THROMBOSIS HOMEOCYSTEINENo results found for: HOMOCYSTEINE THROMBOSIS PANELNo results found for: ACAIGM, [id number] FACTOR V LEIDEN No components found for: FACTORVLEIDEN PROTEIN C,SNo components found for: PROTEINC, PROTEINS ANTITHROMBIN IIINo components found for: ANTITHROMBINIII Miscellaneous Send outsNo results found for: MISCSENDOUT, MISCMAYO EDX: Low amplitude/ absent left median /ulnar sensory. Low amplitude median motor with prolonged distal latency bilaterally. Bilateral slowed ulnar conduction velocities more on the left side with greater slowing across the elbow. Low amplitude radial sensory. EMG shows no evidence of radiculopathy. MRI Spine: Cervical spondylosis with C5,6,7 left sided severe neural foraminal narrowing. ASSESSMENT: 46 Y M with history of HTN, DM, Obesity, ONDINA and cervical radiculopathy comes for follow up. EMG /NCS study showed evidence of bilateral median neuropathy at the wrist, bilateral ulnar neuropathy at the elbow. There was also evidence of a generalized sensorimotor neuropathy. C spine imaging showed cervical DJD with foraminal narrowing severe at C5/6,7 on left side for which he was sent for LAVINIA. He says he couldn't tolerate the LAVINIA and his left sided radiculopathy symptoms persist.He was also found deficient in B12, Vit D and has been on supplementation. IMPRESSION: 1. Bilateral CTS 2. 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 3. Generalized Neuropathy DM + Nutritional 4. Cervical DJD with neural foraminal stenosis and radiculopathy. PLAN/RECOMMENDATIONS: His cervical radiculopathy symptoms on left side persists and hasn't benefited from th e LAVINIA. Will arrange a spine clinic visit for consideration of surgical need. Will also arrange a visit with orthopedics regarding CTS Peripheral neuropathy symptoms have improved. Increased Gabapentin to 600 TID. Continue multivitamins. Follow up in 6 months. Mark Bowers MD Department of Neurology [facility] documented in this encounter Plan of Treatment Upcoming Encounters Date Type Department Care Team (Late st Contact Info) Description 12/01/2023 2:00 PM EDT [place] [address] Wale Huntley MD [address] [place] [address], [address] [place] [address] Scheduled Referrals Name Type Priority Associated Diagnoses Orde r Schedule Referral to Orthopaedics Outpatient Referral Routine Carpal tunnel syndrome, bilateral Ulnar neuropathy of left upper extremity Ordered: 05/29/2017 Referral to Spine Center Outpatient Referral Routine Cervical disc disorder with radiculopathy of cervicothoracic region Ordered: 05/29/2017 documented as of this encounter Visit Diagnoses Diagnosis Carpal tunnel syndrome, bilateral Carpal tunnel syndrome Ulnar neuropathy of left upper extremity Lesion of ulnar nerve Cervical disc disorder with radiculopathy of cervicothoracic region Brachial neuritis or radiculitis nos documented in this encounter Care Teams Motor Assembler Relationship Specialty Start Date End Date Munira Mac APRN [address] [place] [address] PCP - General Family Medicine 08/12/16 documented as of this encounter
--- OUTSIDE RECORDS SUMMARY | 2023-10-28 01:36 | XMS_ITS | Encounter Summary ---
[place] [address] Care Team Providers Care Financial Reporting Specialist Name Role Phone Munira Mac APRN Primary Care Provider [phone] [phone] Encounter Details Date Type Department Care Team (Late st Contact Info) Description 08/18/2017 11:40 AM EDT Clinical [place] [address] Social History Tobacco Use Types Packs/Day Years [...] as of this encounter Progress Notes * Fatoumata Figueroa RN - 08/18/2017 11:40 AM EDT PAT questionnaire reviewed with patient while in Pre Admission testing. Pre- operative instruction booklet reviewed. Patient verbalizes a good understanding of all information reviewed. Denied from OSC PLAN: Testing: none Special medication instructions: Pt will be instructed on mobic and asa Procedure date: Not booked. States lives w mom currently documented in this encounter Plan of Treatment Upcoming Encounters Date Type Department Care Team (Late st Contact Info) Description 12/01/2023 2:00 PM EDT [place] [address] Wale Huntley MD [address] [facility], [address] [place] [address] documented as of this encounter Visit Diagnoses Not on filedocumented in this encounter Care Teams Financial Reporting Specialist Relationship Specialty Start Date End Date Munira Mac APRN [address] [place] [address] PCP - General Family Medicine 08/12/16 documented as of this encounter
--- OUTSIDE RECORDS SUMMARY | 2023-10-28 01:36 | XMS_ITS | Encounter Summary ---
Author Organization [facility] Address [facility] [place] [address] Care Team Providers Care Care Program Resident Name Role Phone Munira Mac APRN Primary Care Provider [phone] [phone] Encounter Details Date Type Department Care Team (Latest Contact Info) Description 06/23/2018 3:30 PM EDT - 06/23/2018 11:59 PM EDT Hospital Encounter XRay at [address] [place] [address] Gabriel Garvey APRN [facility] [place] [address] Chronic bilateral low back pain without sciatica Discharge Disposition: Home Social History Tobacco Use Types Packs/Day Years Used Date Smoking Tobacco: Every Day Cigarettes Last attempted to quit: 11/15/2012 Smokeless Tobacco: Former Chew Quit: 11/15/2012 Alcohol Use Standard Drinks/Week Comments Yes 0 (1 standard drink = 0.6 oz pur e alcohol) Maybe 4 beers a year Sex and Gender Information Value Date Recorded Sex Assigned at Not on file Gender Identity Not on file Sexual Orientation Not on file documented as of this encounter Medications at Time of Discharge Medication Sig Dispensed Refills Start Date End Date FLUoxetine (PROZAC) 20 mg Capsule Take 20 mg by mouth 2 times daily. UNABLE TO FIND Pt uses Med Name: Pt uses ONE touchmeter and strips. Also takes multi dupplements:ABC plus, A&D,KLB6 gabapentin (NEURONTIN) 300 mg Capsule TAKE TWO CAPSULES BY MOUTH THREE TIMES DAILY 180 capsule 5 05/06/2018 11/21/2020 ranitidine (ZANTAC) 150 mg Tablet Take 1 tablet by mouth daily. 10/09/2017 11/21/2020 aspirin 81 mg Tablet, Delayed Release (E.C.) Take 81 mg by mouth daily. 11/20/2020 metFORMIN (GLUCOPHAGE) 500 mg Tablet Take 1,000 mg by mouth 2 times daily. 11/21/2020 lisinopril (PRINIVIL;ZESTRIL) 5 mg Tablet Take 5 mg by mouth daily. 11/21/2020 acetaminophen (TYLENOL) 500 mg Tablet Take 1,000 mg by mouth as needed for Pain. 11/21/2020 meloxicam (MOBIC) 15 mg Tablet Take 15 mg by mouth daily. 11/21/2020 simvastatin (ZOCOR) 10 mg Tablet Take 10 mg by mouth nightly. 11/21/2020 documented as of this encounter Plan of Treatment Upcoming Encounters Date Type Department Care Team ([facility] st Contact Info) Description 12/01/2023 2:00 PM EDT Office [place] [address] Wale Huntley MD [address] [place] [address], [address] [place] [address] documented as of this encounter Procedures Procedure Name Priority Date/Time Associated Diagnosis Comments XR LUMBAR SPINE 2 OR 3 VIEWS Routine 06/23/2018 3:39 PM EDT Chronic bilateral low back pain without sciatica documented in this encounter Results * XR Lumbar Spine 2 Or 3 Views (Generic) (06/23/2018 3:39 PM EDT) Anatomical Region Laterality Modality L-spine N/A Digital Radiogra phy Narrative 06/23/2018 3:52 PM EDT EXAMINATION: XR LUMBAR SPINE 2 OR 3 VIEWS (GENERIC) CLINICAL HISTORY: AP; lateral flexion & extension (3 views) low back pain TECHNIQUE: 3 views of the lumbar spine, AP and flexion-extension lateral radiographs of the lumbar spine COMPARISON: None FINDINGS: There is no acute fracture, no dislocation. Chronic mild anterior wedging deformity of L1. Degenerative changes at L4-L5 and L5-S1. No dislocation and no subluxation. No evidence of transitional instability on the flexion and extension views. Mild disc space narrowing at the T11-T12, T12-L1, L1-L2, L3-L4, L4-L5 and L5-S1. This is most pronounced at L4-L5. Neural foraminal stenosis at L4-L5 and L5-S1. Thank you for letting us participate in the care of this patient. For questions regarding this report, please contact the number below. ? Procedure Note Bianca Arora MD - 06/23/2018 EXAMINATION: XR LUMBAR SPINE 2 OR 3 VIEWS (GENERIC) CLINICAL HISTORY: AP; lateral flexion & extension (3 views) low backpain TECHNIQUE: 3 views of the lumbar spine, AP and flexion-extension lateral radiographsof the lumbar spine COMPARISON: None FINDINGS: There is no acute fracture, no dislocation. Chronic mild anteriorwedging deformity of L1. Degenerative changes at L4-L5 and L5-S1. No dislocation and no subluxation. No evidence of transitional instabilityon the flexion and extension views. Mild disc space narrowing at the T11-T12, T12-L1, L1-L2, L3-L4, L4-L5 andL5-S1. This is most pronounced at L4-L5. Neural foraminal stenosis at L4-L5 andL5-S1. Thank you for letting us participate in the care of this patient. Forquestions regarding this report, please contact the number below. Gabriel Garvey APRN IMG DX ORDERABLES documented in this encounter Visit Diagnoses Diagnosis Chronic bilateral low back pain without sciatica documented in this encounter Care Teams Care Program Resident Relationship Specialty Start Date End Date Munira Mac APRN [address] [place] [address] PCP - General Family Medicine 08/12/16 documented as of this encounter
--- OUTSIDE RECORDS SUMMARY | 2023-10-28 01:36 | XMS_ITS | Encounter Summary ---
[place] [address] Care Team Providers Care Nut Sheller Machine Operator Name Role Phone Munira Mac APRN Primary Care Provider [phone] [phone] Reason for Visit * Reason Onset Date Comments Pre Procedure Call 05/09/2017 Encounter Details Date Type Department Care Team (Late st Contact Info) Description 05/09/2017 Telephone [place] [phone] Flor Cutler LNA Pre Procedure Call Social History Tobacco Use Types Packs/Day Years [...] encounter Miscellaneous Notes * Telephone Encounter - Flor Cutler LNA - 05/09/2017 10:35 AM EST Hua García :1970 Contact made with patient: I spoke to Mr. García at 10:35 AM regarding his upcoming cervical epidural steroid injection scheduled on 05/12/2017 scheduled at 2:30PM (time) with Dr. Susie Samuels MD. Medication and Allergy reconciliation: 1. Changes were made in the telephone encounter per patient; marked as reviewed, and closed. 2. Patient confirmed no IVP dye allergy. 3. Have you had any steroid injections anywhere in your body within the last two weeks? no Arrival time: The patient was instructed to arrive at 2:00PM on 05/12/2016. Maintenance Parts Technician: The patient was reminded that they need to have a bicycle taxi driver accompany them to his procedure who [...] vomiting. 5. The patient confirmed that he is still experiencing significant pain. Pain and Anti-anxiety Medications: 1. Nerve Block [...] any diagnosed bleeding disorders: No Anticoagulants: No NSAIDs: Does the patient take Aspirin/ASA? Does the patient take an NSAID? Yes The patient confirmed that he discontinued taking Meloxicam on 05/11/2017. NPO instructions given to patient: 1. Last solid food intake until 7:30AM. 2. Clear liquids only intake until 12:30PM. Implant: Patient has pacemaker/defibrillator: No Prior to checking in at [employer] Senior Vice President And Chief Information Officer, please be sure to empty your bladder. Patient confirmed understanding that if they do not follow the above their instructions, their procedure is likely to be cancelled. HARSHA Fine documented in this encounter Plan of Treatment Upcoming Encounters Date Type Department Care Team ([facility] st Contact Info) Description 12/01/2023 2:00 PM EDT Office [place] [address] Wale Huntley MD [address] [place] [address], [address] [place] [address] documented as of this encounter Visit Diagnoses Not on filedocumented in this encounter Care Teams Nut Sheller Machine Operator Relationship Specialty Start Date End Date Munira Mac APRN [address] [place] [address] PCP - General Family Medicine 08/12/16 documented as of this encounter
--- OUTSIDE RECORDS SUMMARY | 2023-10-28 01:36 | XMS_ITS | Encounter Summary ---
Author Organization [facility] Address [facility] [place] [address] Care Team Providers Care Improvement Manager Name Role Phone Munira Mac APRN Primary Care Provider [phone] Encounter Details Date Type Department Care Team (Late st Contact Info) Description 10/09/2017 7:30 AM EDT - 10/09/2017 9:22 AM EDT Surgery [place] [id number] Colt Veliz MD [facility] [address] [place] [address] ENDOSCOPY WRIST W/ RELEASE TRANSVERSE CARPAL LIGAMENT (WRVU 6.39) Social History Tobacco Use Types Packs/Day Years [...] Sign Reading Time Taken Comments Blood Pressure 144/70 10/09/2017 9:15 AM EDT Pulse 78 10/09/2017 8:52 AM EDT Temperature 36.6 ??C (97.9 ??F) 10/09/2017 8:52 AM ED T Respiratory Rate 16 10/09/2017 9:15 AM EDT Oxygen Saturation 96% 10/09/2017 9:15 AM EDT Inhaled Oxygen Concentration - - Weight 96.9 kg (213 lb 9.6 oz) 10/09/2017 6:32 A M EDT Height 167.6 cm (5' 6) 10/09/2017 6:32 AM EDT Body Mass Index 34.48 10/09/2017 6:32 AM EDT documented in this encounter Discharge Instructions * Discharge Instructions* Janette Hunter RN - 10/09/2017 9:03 AM EDT Next dose of acetaminophen (tylenol) can be taken at _3:30pm . Next dose of pain med, __tramadol can be taken at _anytime . * Patient Instructions* Eliza Fritz - 10/09/2017 7:01 AM EDT Orthopaedic Hand Surgery Same Day Discharge Instructions: General Activities ?? Diet: Start light and progress as tolerated. No alcoholic beverages on the day of surgery or while taking narcotics. If taking narcotics, make sure you are getting plenty of fluids and fiber. ?? In general, care should be taken the first several days following surgery to limit strenuous activity. You want to avoid any activities that you may lose your balance, slip, trip, fall or re-injure your surgery. ?? You may shower tomorrow. Cover your dressing/cast with a plastic bag to keep it dry. ?? No driving while taking narcotic medications or wearing a device (splint, cast, sling, brace) that limits joint mobility. When you feel you can safely control your vehicle and respond to unpredictable situations you may resume driving. Hand Use ?? Decreased sensation for several hours following surgery is often from the local anesthesia used during the procedure. This will resolve on its own. ?? If a regional anesthetic was used, wear your sling until you regain full function of your limb, and keep a close eye on the positioning of your arm and hand. When you have regained function and sensation you may then remove the sling. ?? Do not use your operative hand for any lifting, pushing or pulling. You may move your elbow and shoulder as tolerated. ?? Gentle exercises with any exposed fingers are encouraged and gently opening and closing the digits will keep the joints flexible. Specific activities and exercises will be discussed at your first postoperative visit. Ice and elevation ?? Some swelling is expected after surgery. Ice and elevation are the best remedies to reduce swelling and pain. Keep your hand properly elevated above the level of the heart i.e., fingers above palm, palm above the wrist, wrist above the elbow. Use pillows to increase elevation. ?? Intermittently apply ice to the outside of the dressing for 20 minutes 6-8 times a day. You will want to ice and elevate for 5-7 days after surgery or as long as it hurts. ?? Do not rely on a sling as it does not sufficiently elevate your hand. For proper elevation whilewalking around place your surgical hand on your opposite shoulder. Dressing/ Wound: ?? The post-op dressing, splint or cast is a very important part of your treatment. If you have anyquestions please call us for clarification. If your dressing becomes wet or damaged please call theoffice. ?? No creams, lotions or ointments on your incision. Keep steri-strips in place. They will fall offon their own Keep your WRIST dressing on and dry for 48 hours then you may remove. Cover your suture/incision with a Band-Aid and change as needed. Keep your incision clean and dry until follow-up appointment. Cubital Tunnel Surgery: should use the sling for comfort, but may begin to remove it at 48 hours for gentle elbow ROM to keep the ulnar nerve gliding. Keep the elbow dressing in place, but can apply Band-Aid to Carpal Tunnel incision if this was done at the same setting. Pain Management ?? Most patients only require narcotics for a short period of time. Ice and elevation is an effective and important modality to use in conjunction with your oral pain medication. In a day or two you may be ready to start decreasing the amount of pain medication your taking. Pain medication is to betaken on an ???as needed?if needed?? basis. Remember to start with the least amount and evaluate its effectiveness. ?? You should not drink alcoholic beverages while on pain medication. ?? If tolerated, please take Tylenol three times a day in conjunction with the narcotic as they complement each other. Once pain is better controlled, you may simply take extra strength Tylenol, one to two tablets every six hours as needed. Do not exceed 3,000 mg in 24 hours. ?? The most common side effects of narcotic pain medications are nausea and constipation. To decrease nausea always take pain medication with food. If you are experiencing vomiting, please call us right away. To minimize constipation, drink plenty of fluids, eat a high fiber diet with plenty of fruits and vegetables, and take a stool softener or laxative as needed. You may take an anti-inflammatory medication such as Ibuprofen/Advil/Motrin or Naproxen/Aleve. Refer to the medication bottles for daily allowance and dosing. Discontinue if it causes stomach upset. Contact Information: During clinic hours M-F 8-4:30 please call [phone] If it is after 5:00PM on a weekday or a weekend and it is of an urgent nature please call [phone] and ask for the on-call orthopaedic resident. Call if: 1. You have a fever greater than 101 F or experience chills 2. Increased drainage from incision 3. Redness or extreme swelling around incision 4. Increased pain or change in pain that is not controlled with elevation, ice and your pain medication. 5. Any questions concerns related to surgery Future Appointments Date Time Provider Department Center 10/22/2017 11:45 AM Colt Veliz MD [facility] 10/28/2017 11:30 AM Susie Samuels MD [facility] 11/27/2017 11:45 AM Mark Bowers MD [facility] documented in this encounter Medications at Time of Discharge Medication Sig Dispensed Refills Start Date End Date FLUoxetine (PROZAC) 20 mg Capsule Take 20 mg by mouth 2 times daily. UNABLE TO FIND Pt uses Med Name: Pt uses ONE touchmeter and strips. Also takes multi dupplements:ABC plus, A&D,KLB6 ranitidine (ZANTAC) 150 mg Tablet Take 1 tablet by mouth daily. 10/09/2017 11/21/2020 traMADol (ULTRAM) 50 mg Tablet Take 1 tablet by mouth every 6 hours as needed for Pain. 15 tablet 10/09/2017 10/22/2017 gabapentin (NEURONTIN) 300 mg Capsule TAKE TWO CAPSULES BY MOUTH THREE TIMES DAILY 180 capsule 5 09/24/2017 04/07/2018 miconazole (MICOTIN) 2 % Cream Apply topically 2 times daily. 10/22/2017 benzonatate (TESSALON) 100 mg Capsule Take 100 mg by mouth 3 times daily as needed for Cough. 10/22/2017 clotrimazole-betameth asone (LOTRISONE) 1-0.05 % Cream Apply topically 2 times daily. 10/22/2017 nystatin-triamcinolon e (MYCOLOG II) Cream Apply topically 4 times daily. 10/22/2017 melatonin 3 mg Tablet Take 3 mg by mouth as needed. 10/22/2017 aspirin 81 mg Tablet, Delayed Release (E.C.) [...] nightly. 11/21/2020 documented as of this encounter H&P Notes * Colt Veliz MD - 10/09/2017 6:48 AM EDT Patient Name: Hua García Patient Age: 47 y.o. Birthdate: 1970 Admit date: 10/09/2017 Attending Physician: Colt Veliz MD I interviewed and examined Hua García. There have been no apparent interval changes in his health status since the most recent history and physical was done. COLT VELIZ MD * Colt Veliz MD - 10/08/2017 10:00 PM EDT Patient Name: Hua García Patient Age: 47 y.o. Birthdate: 1970 Admit date: (Not on file) Attending Physician: Colt Veliz MD See scanned document for pre-procedural H&P completed on 09/24/17. documented in this encounter Miscellaneous Notes * Op Note - Colt Veliz MD - 10/09/2017 8:49 AM EDT [facility] Operative Note Patient Name: Hua García : [id number] MR#: [id number] Case Date: 10/09/2017 Surgeon: Surgeon(s) and Role: * Colt Veliz MD - Primary * Eliza Fritz MD - Resident-Surgeon Chief Preoperative diagnosis: Left carpal tunnel syndrome and left cubital tunnel syndrome Postoperative diagnosis: Left carpal tunnel syndrome and left cubital tunnel syndrome Procedures Performed: In situ decompression, left cubital tunnel. Endoscopic left carpal tunnel decompression. Anesthesia: General Operative Indication: The patient is a 47 y.o.-year-old male with EMG-proven left carpal tunnel syndrome and cubital tunnel syndrome refractory to conservative treatment. He was brought to the operating room today for left for endoscopic carpal tunnel decompression and cubital tunnel decompression. Summary of Procedure: After general anesthesia was performed, the patient's left upper extremity was prepped from the fingertips to the axilla with a Hibiclens scrub and a ChloraPrep. his left arm was draped in a sterile fashion. A preoperative timeout was performed as per [facility] protocol. his left arm was exsanguinated with an Esmarch bandage. A sterile brachial tourniquet was inflated to 250 mmHg. 2 g of intravenous cefazolin was administered. A transverse incision was made at the palmar wrist crease in line with the ring finger ray. Subcutaneous spreading was performed in a blunt fashion down to the level of the investing fascia of the palmar surface of the forearm. Throughout this dissection, care was taken to avoid injury to subcutaneous neurovascular structures. The investing fascia was incised. It was elevated as a distally based flap which allowed for entry into the carpal tunnel. A synovial elevator was then used to dissect synovium from the undersurface of the transverse carpal ligament. Small and large hamate finders were inserted into the carpal tunnel to confirm the proper line of entry. The Ben endoscopic carpal tunnel release device was inserted into the carpal tunnel. It was passed distally until the distal edge of the transverse carpal ligament was well visualized. The blade was elevated. The device was withdrawn, transecting the transverse carpal ligament. The device was reinserted and complete release of the transverse carpal ligament was confirmed. Under direct vision, the investing fascia at of the palmar surface of forearm was released well proximal to the wrist incision site using tenotomy scissors. The incision was irrigated and was closed with 4-0 nylon suture. The surgical site was injected with 5 mL of 1% lidocaine with epinephrine. Another incision was made over the medial aspect of his left elbow. Subcutaneous spreading was performed in a blunt fashion. Multiple cutaneous crossing nerves were identified and protected. Hemostasis was achieved with electrocautery. With blunt dissection, I was able to expose Lowry's ligament over the ulnar groove. There was an anconeus epitrochlearis over the ulnar grove and this was excised. There were two eric fascial bands over the ulnar groove which ran from the triceps fascia to themedial epicondyle and these were excised. Lowry's ligament was incised. The ulnar nerve was tracked distally and decompressed distally between the two heads of the flexor carpi ulnaris with all sites of compression being relieved in this manner. The nerve was tracked proximally, and the Winters ofStruthers was released well proximal to the medial epicondyle. Care was taken to avoid injury to the ulnar nerve and its branches throughout. The elbow was brought through range of motion. The ulnar nerve was found to be stable within the ulnar groove. It was completely decompressed from the mid bra chium well into the muscle belly of the flexor carpi ulnaris. The articular branch to the elbow as well as the motor branches to the FCU were identified and protected. The incision site was irrigated. The tourniquet was released with a tourniquet time of 33 minutes. All digits rapidly became pink and warm with brisk capillary refill. No significant bleeding was encountered in the elbow incision site. This was closed in layers using 4-0 undyed Vicryl and 4-0 nylon. It was injected with 10 mL of 1% lidocaine with epinephrine. Sterile soft dressings were applied. A sling was applied to His left arm. He was then extubated andtransferred to the recovery room in stable condition. Estimated blood loss was minimal. IV fluid replacement was 200 mL of crystalloid. He tolerated the procedures well without apparent complications. Attestation: Case Date: 10/09/2017 I was present and I participated during the entire procedure (does not need to include opening and closing). COLT VELIZ MD 10/09/2017 * Brief Op Note - Colt Veliz MD - 10/09/2017 8:48 AM EDT Brief Operative Note Patient Name: Hua García : [id number] MR#: [id number] Case Date: 10/09/2017 Surgeon: Surgeon(s) and Role: * Colt Veliz MD - Primary * Eliza Fritz MD - Resident-Surgeon Chief Preoperative diagnosis: Left carpal tunnel syndrome and left cubital tunnel syndrome Postoperative diagnosis: Left carpal tunnel syndrome and left cubital tunnel syndrome Procedure(s) (LRB): ENDOSCOPY WRIST W/ RELEASE TRANSVERSE CARPAL LIGAMENT (WRVU 6.39) (Left) NEUROPLASTY &/OR TRANSPOSITION, ULNAR NERVE AT ELBOW (WRVU 7.26) (Left) Anesthesia: General Complications: None Intake: 200cc crystalloid Output: Estimated Blood Loss: * No values recorded between 10/09/2017 7:45 AM and 10/09/2017 8:41 AM * Drains: None Specimens removed during surgery: None Disposition: awakened from anesthesia, extubated and taken to the recovery room in a stable condition, having suffered no apparent untoward event. Condition: doing well without problems Attestation: Case Date: 10/09/2017 I was present and I participated during the entire procedure (does not need to include opening and closing). (Please see the Surgical Encounter Summary for any Implant and Specimen details pertinent to this patient.) documented in this encounter Plan of Treatment Upcoming Encounters Date Type Department Care Team ([facility] st Contact Info) Description 12/01/2023 2:00 PM EDT Office [place] [address] Wale Huntley MD [address] [place] [address], [address] [place] [address] documented as of this encounter Procedures Procedure Name Priority Date/Time Associated Diagnosis Comments NEUROPLASTY &/OR TRANSPOSITION, ULNAR NERVE AT ELBOW (WRVU 7.26) Yes 10/09/2017 7:28 AM EDT Carpal tunnel syndrome on left Cubital tunnel syndrome, unspecified laterality ENDOSCOPY WRIST W/ RELEASE TRANSVERSE CARPAL LIGAMENT (WRVU 6.39) Yes 10/09/2017 7:28 AM EDT Carpal tunnel syndrome on left Cubital tunnel syndrome, unspecified laterality POCT GLUCOSE Routine 10/09/2017 6:35 AM EDT NEUROPLASTY &/OR TRANSPOSITION, ULNAR NERVE AT ELBOW Routine 10/09/2017 6:29 AM EDT Carpal tunnel syndrome on left Cubital tunnel syndrome, unspecified laterality documented in this encounter Results * POCT Glucose (10/09/2017 6:35 AM EDT) POC Glucose 134 65 - 199 mg/dL [facility] Comment: Supplemental ranges: <140 mg/dL before meals <180 mg/dL all other times of the day Blood specimen (specimen) 10/09/2017 6:35 AM EDT 10/09/2017 6:35 AM EDT Colt Veliz MD POINT OF CARE TEST O RDERABLES [facility] [place] [address] documented in this encounter Visit Diagnoses Diagnosis Carpal tunnel syndrome on left Carpal tunnel syndrome Cubital tunnel syndrome, unspecified laterality Carpal tunnel syndrome on left Carpal tunnel syndrome Cubital tunnel syndrome, unspecified laterality documented in this encounter Administered Medications Inactive Administered Medications - up to 3 most recent administrations Medication Order MAR Action Action Date Dose Rate Site acetaminophen (TYLENOL) tablet 1,000 mg 1,000 mg, Oral, ONCE, 1 dose, On Jasmin 10/09/17 at 0700, Administer with SIP of H2O only., Day of Surgery (Day of Procedure), Routine Given 10/09/2017 6:49 AM EDT 1,000 mg gabapentin (NEURONTIN) capsule 600 mg 600 mg, Oral, ONCE, 1 dose, On Jasmin 10/09/17 at 0715, Administer with SIP of H2O only., Day of Surgery (Day of Procedure), Routine Given 10/09/2017 7:03 AM EDT 600 mg lactated Ringers infusion 1,000 mL 1,000 mL, at 100 mL/hr, Intravenous, CONTINUOUS, Starting on Jasmin 10/09/17 at 0700, Until Jasmin 10/09/17 at 1328, Day of Surgery (Day of Procedure) New Bag 10/09/2017 7:04 AM EDT 1,000 mLs 100 mL/hr lidocaine (XYLOCAINE) 10 mg/mL (1 %) injection 3 mg 3 mg (0.3 mL), Subcutaneous, ONCE PRN, 1 dose, Starting on Jasmin 10/09/17 at 0640, Until Jasmin 10/09/17 at 0704, for discomfort with PIV insertion, Day of Surgery (Day of Procedure), Routine Given 10/09/2017 7:04 AM EDT 3 mg lidocaine-EPINEPHrin e 1 %-1:200,000 injection ONCE PRN, Starting on Jasmin 10/09/17 at 0840, Until Jasmin 10/09/17 at 1328, Intra-Operative (Intra-Procedure), Routine Given 10/09/2017 8:40 AM EDT 15 mLs 19- Surgical Site sodium chloride 0.9 % flush 5-20 mL 5-20 mL, Intravenous, EVERY 1 MIN PRN, Starting on Jasmin 10/09/17 at 0640, Until Jasmin 10/09/17 at 1328, flush, Flush pertains to all indwelling lines. Flush per protocol found in the job aid using the link provided on this medication record., Day of Surgery (Day of Procedure), Routine documented in this encounter Active and Recently Administered Medications Times are shown in EDT. Scheduled Medication Order 10/07/2017 10/08/2017 10/09/2017 acetaminophen (TYLENOL) tablet 1,000 mg (COMPLETED) 1,000 mg, Oral, ONCE, 1 dose, On Jasmin 10/09/17 at 0700, Administer with SIP of H2O only., Day of Surgery (Day of Procedure), Routine 06 (Given - Provid er: Janette Hunter RN) acetaminophen (TYLENOL) tablet 975 mg 975 mg, Oral, EVERY 8 HOURS SCHEDULED, First dose on Jasmin 10/09/17 at 0915, Until Discontinued, Maximum total acetaminophen dose 4 grams per 24 hours., Recovery (Recovery-Hospital Unit), Routine 0915 (Due) gabapentin (NEURONTIN) capsule 600 mg (COMPLETED) 600 mg, Oral, ONCE, 1 dose, On Jasmin 10/09/17 at 0715, Administer with SIP of H2O only., Day of Surgery (Day of Procedure), Routine 07 (Given - Provid er: Janette Hunter RN) Continuous Medication Order 10/07/2017 10/08/2017 10/09/2017 lactated Ringers infusion 1,000 mL 1,000 mL, at 100 mL/hr, Intravenous, CONTINUOUS, Starting on Jasmin 10/09/17 at 0700, Until Jasmin 10/09/17 at 1328, Day of Surgery (Day of Procedure) 0704 (New Bag - Prov ider: Janette Hunter RN) PRN Medication Order 10/07/2017 10/08/2017 10/09/2017 lidocaine (XYLOCAINE) 10 mg/mL (1 %) injection 3 mg (COMPLETED) 3 mg (0.3 mL), Subcutaneous, ONCE PRN, 1 dose, Starting on Jasmin 10/09/17 at 0640, Until Jasmin 10/09/17 at 0704, for discomfort with PIV insertion, Day of Surgery (Day of Procedure), Routine 07 (Given - Provid er: Janette Hunter RN) lidocaine-EPINEPHrine 1 %-1:200,000 injection (CANCELED) ONCE PRN, Starting on Jasmin 10/09/17 at 0840, Until Jasmin 6/28/18 at 1328, Intra-Operative (Intra-Procedure), Routine 0840 (Given - Provid er: Colt Veliz MD) sodium chloride 0.9 % flush 5-20 mL 5-20 mL, Intravenous, EVERY 1 MIN PRN, Starting on Jasmin 10/09/17 at 0640, Until Jasmin 18 at 1328, flush, Flush pertains to all indwelling lines. Flush per protocol found in the job aid using the link provided on this medication record., Day of Surgery (Day of Procedure), Routine traMADol (ULTRAM) tablet 50-100 mg 50-100 mg, Oral, EVERY 6 HOURS PRN, Starting on Jasmin 10/09/17 at 0843, Until Jasmin 10/09/17 at 1328, Pain, Give 50 mg for mild to moderate pain (1-6). Give 100 mg for severe pain (7-10) If pain not relived after 60 minutes by a dose of 50 mg then may repeat 50 mg ONCE. Maximum of 400 mg/day., Routine documented in this encounter Care Teams Improvement Manager Relationship Specialty Start Date End Date Munira Mac, MOBILITY MANAGER [address] [place] [id number] PCP - General Family Medicine 08/12/16 documented as of this encounter
--- OUTSIDE RECORDS SUMMARY | 2023-10-28 01:36 | XMS_ITS | Encounter Summary ---
[place] [address] Care Team Providers Care Press Tender Smoke Signal Name Role Phone Munira Mac APRN Primary Care Provider [phone] Encounter Details Date Type Department Care Team (Late Contact Info) Description 01/05/2019 Telephone [facility] [place] [phone] Aminta Hughes RN Social History Tobacco Use Types Packs/Day [...] 2:00 PM EDT Office [place] [phone] Wale Huntley MD [address] [facility] [address] [place] [address] documented as of this encounter Visit Diagnoses Not on filedocumented in this encounter Care Teams Press Tender Smoke Signal Relationship Specialty Start Date End Date Munira Mac APRN [address] [place] [address] PCP - General Family Medicine 08/12/16 documented as of this encounter
--- OUTSIDE RECORDS SUMMARY | 2023-10-28 01:36 | XMS_ITS | Encounter Summary ---
[place] [address] Care Team Providers Care Collar Worker Name Role Phone Munira Mac APRN Primary Care Provider [phone] [phone] Reason for Referral * Consultation (Routine) - Canceled Specialty Diagnoses / Procedures Referred By Contac t Referred To Contact Pain Management Diagnoses Chronic bilateral low back pain without sciatica Procedures PRO INJ, PARAVERTEBRAL FACET JT W/IMAGE GUID, LUMBAR/SACRAL, SINGLE LEVEL [place] [address] [facility] [address] [place] [phone] Referral ID Status Reason Start Date Expiration Date V isits Requested Visits Authorized [id number] Canceled Consult, Test & Treat 06/23/2018 06/23/2019 1 1 Reason for Visit * Reason Comments Back Pain * Consultation (Routine) - Specialty Diagnoses / Procedures Referred By Contac t Referred To Contact Orthopaedics Diagnoses Low back pain/ failed PT/ ?imaging Munira Mac APRN [address] [place] [address] [facility] [address] [place] [phone] Referral ID Status Reason Start Date Expiration Date V isits Requested Visits Authorized [id number] Consult, Test & Treat [facility] 06/05/2018 06/05/2019 3 3 Encounter Details Date Type Department Care Team (Late st Contact Info) Description 06/23/2018 3:20 PM EDT Office Visit Spine Center at [facility] [place] [address] Gabriel Garvey, MARK [facility] [place] [address] Chronic bilateral low back pain without sciatica Social History Tobacco Use Types Packs/Day Years [...] Sign Reading Time Taken Comments Blood Pressure - - Pulse - - Temperature - - Respiratory Rate - - Oxygen Saturation - - Inhaled Oxygen Concentration - - Weight 97.1 kg (214 lb) 06/23/2018 2:49 PM EDT Height 167.6 cm (5' 6) 06/23/2018 2:49 PM EDT Body Mass Index 34.54 06/23/2018 2:49 PM EDT documented in this encounter Progress Notes * Gabriel Garvey, MARK - 06/23/2018 3:20 PM EDT SUBJECTIVE: Hua García is a 48 y.o. year old male being seen at the request of Munira Mac with a chief complaint of low back pain. Patient states that his low back pain began with no clear incident or injury 3-4 years ago and has been progressively worsening over the years. He describes the pain is being bilateral of midline in the low lumbar spine and denies pain and numbness or weakness in either buttock or lower extremity. His back pain is aggravated by walking is minimal is a half a mile, prolonged standing and prolonged sitting. His sleep is only occasionally disrupted by the symptoms. Prior treatments have included gabapentin minimally helpful, meloxicam minimally helpful, cyclobenzaprine not helpful, on the rare occasion where he smokes marijuana he finds it helpful, and over thelast several weeks he has had 8-12 visits of physical therapy that are helpful in the short-term but ultimately not adequately helpful. In the remote past he has had cervical epidural steroid injection which was not helpful. Review of systems is negative for constitutional, GI, symptoms. Patient smokes a pack of cigarettes per day, drinks 4 beers per year, lives in [facility] with his mother and is not currently working. He is applied for Social Security disability. Past medical history includes cervical spondylosis, DM 2, left carpal and cubital tunnel surgery, GERD, hypertension, depression, anxiety, and PTSD. He is also status post left knee ACL reconstruction. OBJECTIVE: On examination the patient's affect is bright, his speech is in good time and to the point, he responds appropriately to questions and direction. He stands a level hips and straight lumbar spine withno obvious deformity. He is mildly tender in the midline mid to low lumbar spine and bilateral paraspinals nontender in the buttocks. Lumbar ROM is 30 degrees of flexion and 15 degrees of extension both of which aggravate back pain and Kemps is positive bilaterally. He walks with a steady gait, is able to toe walk, heel walk, tandem walk. Motor exam is 5/5 strength of all lower extremity muscle groups bilaterally. Sensation is intact in all dermatomes lower extremities with the exception of thebilateral L5's which are impaired but he attributes to diabetic neuropathy. Reflexes are 1 to the left knee, 2 at the right knee, and 0 at the bilateral ankles. There is no clonus or Babinski. Hip ROM and straight leg raise exams are negative. There is no lumbar spine imaging to review.. ASSESSMENT: This is a 48 y.o. year old male with 3 or 4 years of progressively worsening mechanical low back pain with no radicular symptoms in the setting of reassuring physical exam who has had 8-10 physical therapy visits and has trialed medications including anti-inflammatory, cyclobenzaprine, and gabapentin all with no or inadequate relief. I explained to the patient that he has no symptoms suggestive of surgery therefore I reviewed possible treatment options for him which include physical therapy, heat, massage, acupuncture, josiah chi, yoga, chiropractor, mindfulness based stress reduction, functional yarsanism program, NSAIDs, and possible injections. I did offer a second opinion from a substance abuse specialist physical therapist with the patient would prefer to proceed with injection. Using a spine model I briefly describe medial branch block and radiofrequency ablation and he indicates a desire toproceed. The patient stated that his physical therapist suggested he may need an MRI of his lumbar spine but I explained to the patient that given his symptoms I see no indications for MRI. We have therefore mutually agreed to proceed as outlined below. PLAN: 1/AP and lateral flexion-extension x-rays of lumbar spine. 2/referral to pain clinic for medial branch block and if indicated radiofrequency ablation. I would suggest consideration of bilateral at L5-S1 and possibly levels above to be determined by the interventionalists the day of the procedure. 3/if medial branch block and/or radio frequency ablation failed to provide adequate relief I would encourage the patient to call the spine center which time a referral for comprehensive pain evaluation could be an option. Alternatively I did briefly describe the functional yarsanism program and if the patient calls to request gap evaluation referring him for that would certainly be appropriate. Following this encounter I have reviewed lumbar spine XR from today and as suspected he does have facet arthropathy particularly at L4-5 and L5-S1 which further supports the planned treatment of bilateral MBB. documented in this encounter Plan of Treatment Upcoming Encounters Date Type Department Care Team ([facility] st Contact Info) Description 12/01/2023 2:00 PM EDT Office [place] [address] Wale [place] MD [address] [place] [address], [address] [place] [address] Scheduled Referrals Name Type Priority Associated Diagnoses Orde r Schedule Referral to Pain Clinic Outpatient Referral Routine Chronic bilateral low back pain without sciatica Ordered: 06/23/2018 documented as of this encounter Results * XR Lumbar Spine [...] report, please contact the number below. ? Electronically signed by: Bianca Arora [facility] ([phone]), at 06/23/2018 3:52 PM Procedure Note Bianca Arora MD - 06/23/2018 [...] Chronic bilateral low back pain without sciatica Chronic bilateral low back pain without sciatica documented in this encounter Care Teams Collar Worker Relationship Specialty Start Date End Date Munira Mac APRN [address] [place] [id number] PCP - General Family Medicine 08/12/16 documented as of this encounter
--- OUTSIDE RECORDS SUMMARY | 2023-10-28 01:36 | XMS_ITS | Encounter Summary ---
Author Organization [facility] [place] [address] Care Team Providers Care Local City Driver Name Role Phone Munira Mac APRN Primary Care Provider [phone] [phone] Encounter Details Date Type Department Care Team (Late st Contact Info) Description 02/03/2019 Telephone [place] [address] Jun Cole RN Social History Tobacco Use Types Packs/Day [...] encounter Miscellaneous Notes * Telephone Encounter - Jun Cole RN - 02/03/2019 3:52 PM EDT Hua García :1970 Contact made with patient: I spoke to Mr. García at 3:53 PM regarding his upcoming Bilateral lumbar medial branch block scheduled on 02/08/2019 (date) scheduled at 1400 (time) with Dr. Susie Samuels MD. Medication and Allergy reconciliation: 1. Changes were made in the telephone encounter per patient; marked as reviewed, and closed. 2. Patient confirmed no IVP dye allergy. 3. Have you had any steroid injections anywhere in your body within the last two weeks? no Arrival time: The patient was instructed to arrive at 1330 (30 minutes prior to procedure start time - 60 minutesprior for RF patients with a pacemaker) on 02/08/2019 (date of procedure). Gi Technician: The patient was reminded that they need to have a long haul truck driver accompany them to his procedure [...] No NSAIDs: Does the patient take Aspirin/ASA? Yes The patient confirmed that he discontinued taking Aspirin on 02/02/2019 (date). Does the patient take an NSAID? Yes The patient confirmed that he discontinued taking Mobiv on 02/02/2019 (date). Diabetic instructions: Patient was advised to inform their PCP regarding safe fasting and the NPO requirements for their upcoming procedure and given the Pain Management Center Nurse Triage Line . Implant: Patient has pacemaker/defibrillator: No Prior to checking in at [employer], please be sure to empty your bladder. Patient confirmed understanding that if they do not follow the above their instructions, their procedure is likely to be cancelled. ANGEL Barahona documented in this encounter Plan of Treatment Upcoming Encounters Date Type Department Care Team (Late st Contact Info) Description 12/01/2023 2:00 PM EDT [place] [phone] Wale [place] MD [address] [facility], [address] [place] [address] documented as of this encounter Visit Diagnoses Not on filedocumented in this encounter Care Teams Local City Driver Relationship Specialty Start Date End Date Munira Mac APRN [address] [place] [address] PCP - General Family Medicine 08/12/16 documented as of this encounter
--- OUTSIDE RECORDS SUMMARY | 2023-10-28 01:36 | XMS_ITS | Encounter Summary ---
Author Organization [facility] Address [facility] [place] [address] Care Team Providers Care Reports Developer Name Role Phone Munira Mac APRN Primary Care Provider [phone] [phone] Encounter Details Date Type Department Care Team (Latest Contact Info) Description 12/25/2016 12:45 PM EDT Office Visit Neurology at [facility] [phone] Mark Bowers MD [facility] [place] [address] Nutritional neuropathy; Diabetic polyneuropathy associated with diabetes mellitus due to underlying condition; Cervical disc disorder with radiculopathy of cervicothoracic region; Carpal tunnel syndrome, bilateral Social History Tobacco Use Types Packs/Day Years [...] Sign Reading Time Taken Comments Blood Pressure 132/75 12/25/2016 12:42 PM EDT Pulse 71 12/25/2016 12:42 PM EDT Temperature - - Respiratory Rate - - Oxygen Saturation - - Inhaled Oxygen Concentration - - Weight 111.6 kg (246 lb) 12/25/2016 12:42 PM EDT Height 167.6 cm (5' 6) 12/25/2016 12:42 PM EDT reported Body Mass Index 39.71 12/25/2016 12:42 PM EDT documented in this encounter Progress Notes * Mark Bowers MD - 12/25/2016 12:45 PM EDT NEUROLOGY CLINIC [facility] [place] [address] Facsimile: 12/25/2016 Patient name: Hua García Date of : 1970 Referring provider: Munira Mac APRN [facility] [address] [place] [address] Initial Visit: 46 Y M referred for [...] shake his left UE. He was in care home for some years. He had diabetes which [...] by pain clinic for consideration of LAVINIA. Review of systems: Constitutional: No fever/chills Eyes: [...] [x] Review of systems otherwise negative PMHx: History reviewed. No pertinent past medical history. History reviewed. No pertinent surgical history. Medications: Current Outpatient Prescriptions on File Prior to Visit Medication Sig Dispense Refill ??? melatonin 3 mg Tablet Take 3 [...] visit. Allergies: No Known Allergies Family History: History reviewed. No pertinent family history. Social History: reports that he quit smoking about 4 years ago. His smoking use included Cigarettes. He quit smokeless tobacco use about 4 years ago. His smokeless tobacco use included Chew. He reports that he drinks alcohol. He reports that he does not use illicit drugs. No flowsheet data found. Vitals: BP 132/75 (BP Location (NBP): Left arm, Patient Position: Sitting, BP Cuff Sizes: Large Adult (32-43 cm)) Pulse 71 Ht 167.6 cm (5' 6) Comment: reported Wt (!) 111.6 kg (246 lb) BMI 39.71 kg/m2 Physical Examination: General: alert, NAD. High BMI [...] 11/15/2016 B12 Lab Results Component Value Date [id number] 333 11/15/2016 CKNo results found for: CK [...] LDLCHOL, LDLDIRECT LATASHA 65No results found for: LRS76KG ANTI GM1,ANTI SGPG, MAG@RESUFAST (MAGAUTOAB,SGPG,MAGWB,GM1AB)@ HEAVY METAL SCREENNo results found for: LEAD, ARSENIC METHYLMLONIC ACID Lab Results Component Value Date METHYLMAL 0.44 (H) 11/15/2016 IgA, IGG No results found for: IGA, IGG CSF PANEL Lab Results Component Value Date LYMEAB Neg 11/15/2016 PARANEOPLASTIC PANEL No results found for: PARANEOINTRP, ANNA1, ANNA2, ANNA3, AGNA1, PCA1, PCA2, PCATYPETR, AMPHIPHYSIN,TONG5LPU, STRIATMSCLAB, CACHABPQTYPE, CACHABNTYPE, ACHRBINDAB, NEUROKCHAB, NMDARECEPTOR, VMQ91SL THROMBOSIS HOMEOCYSTEINENo results found for: HOMOCYSTEINE THROMBOSIS PANELNo results found for: ACAIGM, [id number] FACTOR V LEIDEN No components found for: [...] with history of HTN, DM, Obesity, ONDINA previously for evaluation of paresthesiae left arm to left hand. On evaluation he had sensory difference in ulnar distribution of left hand. EMG /NCS study shows evidence of bilateral median neuropathy at the wrist, bilateral ulnar neuropathyat the elbow. There was also evidence of a generalized sensorimotor neuropathy. C spine imaging showed cervical DJD with foraminal narrowing severe at C5/6,7 on left side. He was also found deficientin B12, Vit D. IMPRESSION: 1. Bilateral CTS 2. 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 3. Generalized Neuropathy DM + Nutritional 4. Cervical DJD with neural foraminal stenosis. PLAN/RECOMMENDATIONS: He has neuropathy from diabetes and nutritional causes. He is taking nutritional supplements but diabetes is not well controlled. He probably would need to be started on additional medications for his Diabetes. He was also encouraged to lose weight which would help with his overall symptoms. Increased gabapentin to 300 TID. Pain clinic referral placed for consideration of LAVINIA. He is not very symptomatic at this time except for left hand paresthesiae which could be from CTS or cervical radiculopathy. Will follow up in 3 months Mark Bowers MD Department of Neurology [facility] documented in this encounter Plan of Treatment Upcoming Encounters Date Type Department Care Team ([facility] st Contact Info) Description 12/01/2023 2:00 PM EDT [place] [address] Wale [place] MD [address] [place] [address], [address] [place] [address] documented as of this encounter Visit Diagnoses Diagnosis Nutritional neuropathy Unspecified vitamin deficiency Diabetic polyneuropathy associated with diabetes mellitus due to underlying condition Cervical disc disorder with radiculopathy of cervicothoracic region Brachial neuritis or radiculitis nos Carpal tunnel syndrome, bilateral Carpal tunnel syndrome documented in this encounter Care Teams Reports Developer Relationship Specialty Start Date End Date Munira Mac APRN [address] [place] [address] PCP - General Family Medicine 08/12/16 documented as of this encounter
--- OUTSIDE RECORDS SUMMARY | 2023-10-28 01:36 | XMS_ITS | Encounter Summary ---
Author Organization [facility] [place] [address] Care Team Providers Care Yarn Salvager Name Role Phone Munira Mac APRN Primary Care Provider [phone] [phone] Reason for Visit * Reason Comments Medication Refill Encounter Details Date Type Department Care Team ([facility] Contact Info) Description 09/24/2017 [place] [phone] Mark Bowers MD [facility] [place] [address] Social History Tobacco Use Types Packs/Day Years [...] Encounters Date Type Department Care Team (Late Contact Info) Description 12/01/2023 2:00 PM EDT Office [place] [phone] Wale [place] MD [address] [place] [address] [address] [place] [address] documented as of this encounter Visit Diagnoses Not on filedocumented in this encounter Care Teams Yarn Salvager Relationship Specialty Start Date End Date Munira Mac APRN [address] [place] [address] PCP - General Family Medicine 08/12/16 documented as of this encounter
--- OUTSIDE RECORDS SUMMARY | 2023-10-28 01:36 | XMS_ITS | Encounter Summary ---
Author Organization [facility] [place] [address] Care Team Providers Care Outreach Liaison Name Role Phone Munira Mac APRN Primary Care Provider [phone] [phone] Reason for Visit * Reason Onset Date Comments Medication Refill 05/06/2017 Encounter Details Date Type Department Care Team ([facility] Contact Info) Description 05/06/2017 [place] [phone] Mark Bowers MD [facility] [place] [address] Social History Tobacco Use Types Packs/Day Years [...] Upcoming Encounters Date Type Department Care Team ([facility] Contact Info) Description 12/01/2023 2:00 PM EDT Office [place] [phone] Wale [place] MD [address] [place] [address], [address] [place] [address] documented as of this encounter Visit Diagnoses Not on filedocumented in this encounter Care Teams Outreach Liaison Relationship Specialty Start Date End Date Munira Mac APRN [address] [place] [address] PCP - General Family Medicine 08/12/16 documented as of this encounter
--- OUTSIDE RECORDS SUMMARY | 2023-10-28 01:36 | XMS_ITS | Encounter Summary ---
Author Organization [facility] Address [facility] [place] [address] Care Team Providers Care Payroll Officer Name Role Phone Munira Mac APRN Primary Care Provider [phone] [phone] Encounter Details Date Type Department Care Team (Latest Contact Info) Description 06/05/2017 9:48 AM EST - 06/05/2017 11:59 PM EST Hospital Encounter XRay at [address] [place] [address] Sidney Ko MD [facility] [place] [address] Cervical radiculopathy Discharge Disposition: Home Social History Tobacco Use [...] Sig Dispensed Refills Start Date End Date gabapentin (NEURONTIN) 300 mg Capsule Take 2 capsules by mouth 3 times daily. 90 capsule 5 05/29/2017 09/24/2017 melatonin 3 mg Tablet Take 3 mg by mouth as needed. 10/22/2017 aspirin 81 mg Tablet, Delayed Release (E.C.) Take 81 mg by mouth daily. 11/20/2020 metFORMIN (GLUCOPHAGE) 500 mg Tablet Take 1,000 mg by mouth 2 times daily. 11/21/2020 lisinopril (PRINIVIL;ZESTRIL) 5 mg Tablet Take 5 mg by mouth daily. 11/21/2020 ranitidine (ZANTAC) 150 mg Capsule Take 150 mg by mouth every evening. 10/08/2017 acetaminophen (TYLENOL) 500 mg Tablet Take 1,000 [...] 2:00 PM EDT [place] [address] Wale [place] MD [address] [place] [address], [address] [place] [address] documented as of this encounter Procedures Procedure Name Priority Date/Time Associated Diagnosis Comments XR CERVICAL SPINE 2 OR 3 VIEWS Routine 06/05/2017 10:01 AM EST Cervical radiculopathy documented in this encounter Results * XR Cervical Spine 2 Or 3 Views (06/05/2017 10:01 AM EST) Anatomical Region Laterality Modality C-spine N/A Digital Radiogra phy Impressions 06/05/2017 10:24 AM EST No spondylolisthesis to include the lateral flexion and extension views. As noted on the MRI, C5-C7 degenerative disc space disease and osteophytosis, compatible with osteoarthritis. Narrative 06/05/2017 10:24 AM EST EXAMINATION: XR CERVICAL SPINE 2 OR 3 VIEWS CLINICAL HISTORY: AP lat flex/ext 3 views to eval cervical radiculopathy TECHNIQUE: 3 lateral views cervical spine including flexion and extension. COMPARISON: MRI of the cervical spine from 12/11/2016 FINDINGS: No spondylolisthesis to include the lateral flexion and extension views. As noted on the MRI, C5-C7 degenerative disc space disease and osteophytosis, compatible with osteoarthritis. Procedure Note Larry Metcalf MD - 06/05/2017 EXAMINATION: XR CERVICAL SPINE 2 OR 3 VIEWS CLINICAL HISTORY: AP lat flex/ext 3 views to eval cervical radiculopathy TECHNIQUE: 3 lateral views cervical spine including flexion and extension. COMPARISON: MRI of the cervical spine from 12/11/2016 FINDINGS: No spondylolisthesis to include the lateral flexion and extension views. As noted on the MRI, C5-C7 degenerative disc space disease andosteophytosis, compatible with osteoarthritis. IMPRESSION No spondylolisthesis to include the lateral flexion and extension views. As noted on the MRI, C5-C7 degenerative disc space disease andosteophytosis, compatible with osteoarthritis. 10:24 AM Sidney Ko MD IMG DX ORDERABLES documented in this encounter Visit Diagnoses Diagnosis Cervical radiculopathy Brachial neuritis or radiculitis nos documented in this encounter Care Teams Payroll Officer Relationship Specialty Start Date End Date Munira Mac APRN [address] [place] [address] PCP - General Family Medicine 08/12/16 documented as of this encounter
--- OUTSIDE RECORDS SUMMARY | 2023-10-28 01:36 | XMS_ITS | Encounter Summary ---
Author Organization [facility] Address [facility] [place] [address] Care Team Providers Care Emt/Paramedic Name Role Phone Munira Mac APRN Primary Care Provider [phone] Reason for Visit * Auth/Cert Specialty Diagnoses / Procedures Referred By Contac t Referred To Contact Diagnoses 724.2, 338.29 (ICD-9-CM) - M54.5, G89.29 (ICD-10-CM) - Chronic bilateral low back pain without sciatica Procedures PRO INJ, PARAVERTEBRAL FACET JT W/IMAGE GUID, LUMBAR/SACRAL, SINGLE LEVEL INJECTION, FACET JOINT, W\FLUORO, LUMBAR, SINGLE (WRVU 1.52) Referral ID Status Reason Start Date Expiration Date Visits Re quested Visits Authorized [id number] 1 1 Encounter Details Date Type Department Care Team (Latest Contact Info) Description 12/09/2018 9:43 AM EDT - 12/09/2018 10:57 AM EDT Hospital [place] [id number] Susie Samuels MD [facility] [place] [address] Spondylosis without myelopathy or radiculopathy, lumbar region (Primary Dx) Discharge Disposition: Home Social History Tobacco Use [...] on file documented as of this encounter Discharge Instructions * Discharge Instructions* Jun Cole RN - 12/09/2018 10:53 AM EDT Pain Management Center Discharge Instructions: You were seen today by Surgeon(s): Susie Samuels MD Alexander, Christopher E, MD The following was performed: Procedure(s) (LRB): INJECTION, FACET JOINT, W\FLUORO, LUMBAR, SINGLE (WRVU 1.52) (Bilateral) INJECTION, FACET JOINT, W\FLUORO, LUMBAR, 2ND LEVEL (WRVU 1) (Bilateral) INJECTION, FACET JOINT, W\FLUORO, LUMBAR, 3RD LEVEL (WRVU 1) (Bilateral) It is normal that the injection site will be sore for up to 48 hours. [x] You may also experience mild stiffness in the joint near the injection site. You may resume your normal activities: today. You may shower today. DO NOT tub bathe, use whirlpools, hot tubs or pool therapy for 2 days. RemoveBand-Aid(s) later today/tomorrow. Do not drive until tomorrow. Use caution walking/climbing stairs as you may be unsteady on your feet. You may use your usual medications, including pain medications, as directed, unless otherwise instructed. You may use an ice pack as needed for the first 24 hours, on for 20 minutes then off for 20 minutes. Do not apply heat today. [x] You received medication through an intravenous line to lessen the anxiety/pain of your procedure. DO NOT operate heavy or dangerous equipment/tools, or sign important papers today. Attempt to empty your bladder 4-6 hours after your procedure. [x] If you have diabetes, monitor your blood sugars frequently. If your blood sugar increases and is of concern, contact your Primary Care Provider. You received the following medications: Medications Given During Procedure Date/Time Order Dose Route Action 12/09/2018 1047 BUpivacaine (PF) (MARCAINE) 0.5 % (5 mg/mL) injection 3 mL Epidural Given 12/09/2018 1038 glycopyrrolate (ROBINUL) injection 0.1 mg Intravenous Given 12/09/2018 1035 glycopyrrolate (ROBINUL) injection 0.3 mg Intravenous Given During regular business hours, please phone the Pain Management Center at with any questions or if the following or other troubling symptoms develop: 1) Prolonged dizziness or weakness (more than 1 day). 2) Localized swelling, redness or drainage at the injection site(s). 3) Temperature of 101 degrees that lasts for more than 4 hours. After 5 PM or on weekends, call and ask for Pain Clinic provider on-call. If you are unable to reach the Pain Management Center and have a complication, please call your Primary Care Provider or proceed to your local emergency department. Jun Cole RN Special instructions Pain Management Center Post -Procedure Pain Log Patient: Hua García [id number] It is important for you to keep track of your pain after your procedure that took place 12/09/2018. This information will help your Provider to determine how to help reduce your pain. Today you had a procedure for pain in your lower back . Your pain level before the procedure in this area was 8/10. Your pain level immediately after your procedure was 0/10. Time Pain Score # Comments % of pain relief 1 hour 12:00 2 hours 1:00 3 hours 2:00 4 hours 3:00 Please call the nurse in the Pain Management Center a day or two after your procedure and report the information above. She will assess your response to the procedure, and will recommend appropriate follow-up. documented in this encounter Medications at Time of Discharge Medication Sig Dispensed Refills Start Date End Date FLUoxetine (PROZAC) 20 mg Capsule Take 20 mg by mouth 2 times daily. UNABLE TO FIND Pt uses Med Name: Pt uses ONE touchmeter and strips. Also takes multi dupplements:ABC plus, A&D,KLB6 CHOLECALCIFEROL, VITAMIN D3, 2,000 unit Capsule Take 2,000 Units by mouth daily. 10/30/2018 bisacodyl (DULCOLAX) 5 mg Tablet, Delayed Release (E.C.) Take 5 mg by mouth as needed. 10/01/2018 11/21/2020 gabapentin (NEURONTIN) 300 mg Capsule TAKE TWO [...] as of this encounter H&P Notes * Jori Bautista MD - 12/09/2018 10:10 AM EDT Patient Name: Hua García Patient Age: 48 y.o. Birthdate: 1970 Admit date: 12/09/2018 Attending Physician: Susie Samuels MD PREPROCEDURE HISTORY AND PHYSICAL Date of Visit: December 09, 2018 Chief Complaint: Low back pain HPI: Subjective Hua García is a 48 y.o. male who presents today for bilateral medial branch blocks. These are his first set of diagnostic blocks. Of note, the patient has a history of vasovagal reaction to spinal injections in the past. He required premedication with 1 mg IV midazolam and 0.3mg of glycopyrrolate IV. The history is obtained from the patient, and I have reviewed medical records provided by the referring physician and located in the electronic medical record to fill in gaps in the patient's recollection of events, treatments and outcomes. LOCATION: across the lower back. PAIN LEVEL AT REST 8 PAST MEDICAL HISTORY: No past medical history on file. PAST SURGICAL HISTORY: Past Surgical History: Procedure Laterality Date ??? PRO REVISE ULNAR NERVE AT ELBOW Left 10/09/2017 NEUROPLASTY &/OR TRANSPOSITION, ULNAR NERVE AT ELBOW (WRVU 7.26) performed by Luther Veliz MD at [facility] MAIN OR ??? PRO WRIST ARTHROSCOP, RELEASE XVERS LIG Left 10/09/2017 ENDOSCOPY WRIST W/ RELEASE TRANSVERSE CARPAL LIGAMENT (WRVU 6.39) performed by Luther Veliz MDat [facility] MAIN OR ALLERGIES: Wool MEDICATIONS: No current facility-administered medications on file prior to encounter. Current Outpatient Medications on File Prior to Encounter Medication Sig Dispense Refill ??? gabapentin (NEURONTIN) 300 mg Capsule TAKE TWO CAPSULES BY MOUTH THREE TIMES DAILY 180 capsule 5 ??? ranitidine (ZANTAC) 150 mg Tablet Take 1 tablet by mouth daily. ??? FLUoxetine (PROZAC) 20 mg Capsule Take 20 mg by mouth 2 times daily. ??? UNABLE TO FIND Pt uses Med Name: Pt uses ONE touchmeter and strips. Also takes multi dupplements:ABC plus, A&D,KLB6 ??? aspirin 81 mg Tablet, Delayed Release (E.C.) Take 81 mg by mouth daily. ??? metFORMIN (GLUCOPHAGE) 500 mg Tablet Take 1,000 mg by mouth 2 times daily. ??? lisinopril (PRINIVIL;ZESTRIL) 5 mg Tablet Take 5 mg by mouth daily. ??? acetaminophen (TYLENOL) 500 mg Tablet Take 1,000 mg by mouth 3 times daily. ??? meloxicam (MOBIC) 15 mg Tablet Take 15 mg by mouth daily. ??? simvastatin (ZOCOR) 10 mg Tablet Take 10 mg by mouth nightly. FAMILY HISTORY: Family History Problem Relation Age of Onset ??? Cancer Mother ??? Cancer Maternal Grandmother SOCIAL HISTORY: Social History Socioeconomic History ??? Marital status: Single Spouse name: Not on file ??? Number of children: Not on file ??? Years of education: Not on file ??? Highest education level: Not on file Occupational History ??? Not on file Social Needs ??? Financial resource strain: Not on file ??? Food insecurity: Worry: Not on file Inability: Not on file ??? Transportation needs: Medical: Not on file Non-medical: Not on file Tobacco Use ??? Smoking status: Current Every Day Smoker Packs/day: 0.75 Types: Cigarettes Last attempt to quit: 11/15/2012 Years since quittin.0 ??? Smokeless tobacco: Former User Types: Chew Quit date: 11/15/2012 Substance and Sexual Activity ??? Alcohol use: Yes Comment: Maybe 4 beers a year ??? Drug use: Yes Types: Marijuana ??? Sexual activity: Not on file Lifestyle ??? Physical activity: Days per week: Not on file Minutes per session: Not on file ??? Stress: Not on file Relationships ??? Social connections: Talks on phone: Not on file Gets together: Not on file Attends [employer] service: Not on file Active member of club or organization: Not on file Attends meetings of clubs or organizations: Not on file Relationship status: Not on file ??? Intimate partner violence: Fear of current or ex partner: Not on file Emotionally abused: Not on file Physically abused: Not on file Forced sexual activity: Not on file Other Topics Concern ??? Not on file Social History Narrative ??? Not on file ROS: Review of Systems Constitutional: Negative for chills and fever. Musculoskeletal: Positive for back pain. PHYSICAL EXAM: There were no vitals taken for this visit. Physical Exam Constitutional: He is oriented to person, place, and time. He appears well- developed and well-nourished. No distress. HENT: Head: Normocephalic and atraumatic. Pulmonary/Chest: Effort normal. No respiratory distress. Neurological: He is alert and oriented to person, place, and time. Skin: Skin is warm and dry. Psychiatric: He has a normal mood and affect. RADIOLOGIC DATA: MRI reviewed LABS/DX RESULTS: Last wbc, hgb, hct plt No results for input(s): WBC, HGB, HCT in the last 72 hours. Invalid input(s): PLT ASSESSMENT: Assessment 1. Spondylosis without myelopathy or radiculopathy, lumbar region PLAN: 1. Spondylosis without myelopathy or radiculopathy, lumbar region Will proceed with bilateral L3 and L4 medial branch and L5 DR blocks. documented in this encounter Miscellaneous Notes * Op Note - Susie Samuels MD - 12/09/2018 10:17 AM EDT Pain Management Operative Note Patient Name: Hua García : [id number] MR#: [id number] Case Date: 12/09/2018 Surgeon: Surgeon(s) and Role: * Susie Samuels MD - Primary Present on Admission: None Postoperative diagnosis: same Procedure(s) (LRB): INJECTION, FACET JOINT, W\FLUORO, LUMBAR, SINGLE (WRVU 1.52) (Bilateral) INJECTION, FACET JOINT, W\FLUORO, LUMBAR, 2ND LEVEL (WRVU 1) (Bilateral) INJECTION, FACET JOINT, W\FLUORO, LUMBAR, 3RD LEVEL (WRVU 1) (Bilateral) Diagnostic Lumbar Medial Branch Nerve Blocks bilateralL4-L5 and L5-S1 Procedure date: 12/09/2018 Chief Complaint: BACK PAIN Diagnosis: 1. Spondylosis without myelopathy or radiculopathy, lumbar region Preoperative Note The patient has a h/o vagal reaction. He will receive glycopyrrolate today for prophylaxis. History and Exam Patient demonstrates today moderate to severe non- radicular back pain without neurologic deficit aggravated by hyperextension yes Back pain greater than leg pain yes Patient today has tenderness over the suspected joint(s) yes History of post-traumatic injury no Back pain associated with suspected motion segment instability or Hypermobility or pseudoarthrosis no Pre-testing pain score: 8/10 with velázquez's testing Hua García has been referred to the [facility] for Diagnostic Medial Branch Nerve Blocks bilateral L-3, L-4 and L-5. (Facet joint levels L4-L5 and L5-S1 ) Mr. García was interviewed and the medical record reviewed. There were no medical, pharmacologic, radiographic or other structural contraindications to attempting fluoroscopically guided injection. Risks and expected side effects as well as potential benefit of the procedure were reviewed with Mr. García, and his voiced concerns were addressed. The printed consent form was signed and witnessed. (The procedure, risks, and benefits of Lumbar Medial Branch Nerve Blocks were reviewed with the patient, including but not limited to: nerve injury, allergic reaction, infection, transient numbness from spread of local anesthesia to nerve roots. The patient appeared to understand, questions were answered and the patient agreed to proceed.) Standard time-out procedure was performed. Hua García was greeted by the nurse who verified patients name and . Patient was then taken to the fluoroscopy suite. TECHNIQUE: After informed written consent was obtained, the patient was placed in the prone position. The lumbar spine was prepped with chloraprep and draped. Sterile technique was used, vital signs were monitored, time out was done and the bilateral side was marked. Cap, glove, mask were worn. The skin and subcutaneous structureswere anesthetized with lidocaine 1% , to a total volume of 5 mlat each level. bilateral Medial Branch Nerves L-3 and L-4 Under fluoroscopic guidance, in the AP view, coaxial approach, 25-gauge spinal needles were advanced to the junction of the L-4 and L-5 transverse processes and superior articulating processes. AP and lateral views were obtained. The needle tip was outside of the neural foramen. BUPIVICAINE 0.5% 0.5 ml was administered at each level after negative aspiration. bilateral L5 Dorsal ramus:: Under fluoroscopic guidance, in AP view, coaxial approach, 25G spinal needles were advanced to the junction of the sacral ala and superior articulating processes. AP and lateral views were obtained. BUPIVICAINE 0.5% 0.5 ml was administered after negative aspiration. Outcome: The patient tolerated the procedure well and had stable vital signs. The patient noted after getting up after the procedure that their pain was at a 0 out of 10 level. Preprocedure pain level was a 8 out of 10. Follow up plans and appointments were discussed with Hua García. Mr. García was instructed to keep careful note of how the usual pain was modified by these injections. Specifically, he was asked to keep a pain diary for the next 24 hours using a numeric pain scale of 0-10 and report these results by phone the following business day. The patient was observed in the pain clinic and then discharged after having met discharge criteria to the care of a corrugated fastener driver. The patient received written instructions as documented in nursing records. Based on the medial branches blocked today, if they patient has adequate relief and we are able to proceed to radiofrequency ablation, the treatment should result in the denervation of the bilateral L4-L5 and L5-S1. We would expect to denervate a total of 4 facets during the radiofrequency ablation. COMMENTS: If criteria met, Mr. García will proceed to lumbar medial branch nerve blocks with Lidocaine.. The patient will otherwise follow-up with referring provider. RECOMMEND THAT PATIENT HAVE AN IV WITH FUTURE PROCEDURES AND BE PRETREATED WITH GLYCOPYRROLATE. The patient received glycopyrrolate 0.4 mg IV. There was not evidence of a vagal reaction. Jori Bautista MD Pain Fellow I was the attending physician supervising the fellow or resident in the above care and I was present with the resident for the entire procedure. Susie Samuels MD Hospice Case Manager of Anesthesiology [facility] [address] [phone] / [facility] CC: Munira Mac APRN [email or web address] documented in this encounter Plan of Treatment Upcoming Encounters Date Type Department Care Team ([facility] st Contact Info) Description 12/01/2023 2:00 PM EDT [place] [address] Wale Huntley MD [address] [place] [address], [address] [place] [address] Scheduled Orders Name Type Priority Associated Diagnoses Order Schedule Film Library- Storage Only Pain Clinic Ultrasound Imaging Storage Only Routine Spondylosis without myelopathy or radiculopathy, lumbar region Once PRN (for Radiant use) for 1 Occurrences starting 12/09/2018 until 12/09/2018 documented as of this encounter Visit Diagnoses Diagnosis Spondylosis without myelopathy or radiculopathy, lumbar region- Primary documented in this encounter Active and Recently Administered Medications Times are shown in EDT. PRN Medication Order 12/07/2018 12/08/2018 12/09/2018 BUpivacaine (PF) (MARCAINE) 0.5 % (5 mg/mL) injection (CANCELED) ONCE PRN, Starting on Fri12/09/18 at 1047, Until Fri12/09/18 at 1257, Intra-Operative (Intra-Procedure), Routine 1047 (Given - Provid er: Jori Bautista MD) glycopyrrolate (ROBINUL) injection (CANCELED) ONCE PRN, Starting on Fri12/09/18 at 1035, Until 12/09/18 at 1257, Intra-Operative (Intra-Procedure), Routine 1035 (Given - Provid er: Jun Cole RN)1038 (Given - Provider: Jun Cole RN) documented in this encounter Care Teams Emt/Paramedic Relationship Specialty Start Date End Date Munira Mac APRN [address] [place] [id number] PCP - General Family Medicine 08/12/16 documented as of this encounter
--- OUTSIDE RECORDS SUMMARY | 2023-10-28 01:36 | XMS_ITS | Encounter Summary ---
[place] [address] Care Team Providers Care Mold Capper Name Role Phone Munira Mac APRN Primary Care Provider [phone] Reason for Visit * Reason Onset Date Comments Pre Procedure Call 2017 Encounter Details Date Type Department Care Team (Late st Contact Info) Description 2017 Telephone [place] [phone] Valentina Cohen LNA Pre Procedure Call Social History Tobacco [...] encounter Miscellaneous Notes * Telephone Encounter - Valentina Cohen LNA - 2017 11:10 AM EDT Hua García :1970 Message left: I left a message on answering machine Mr. García at 11:10 AM regarding his upcoming cervical epidural steroid injection with Dr. Susie Samuels MD. Message included the followin. Patient instructed to arrive at 830 (30 minutes prior to procedure start time) on 01/28/2017 (date of procedure) with their airport driver. 2. Following instructions left in the message: - Bring Updated list of medications including dosage and reason for taking. - Call the Pain Clinic Nurse at for: ~Procedure instructions. ~If you are taking antibiotics. ~If you have any signs or symptoms of infection, cold or flu. ~If you have any skin breakdown (rashes, cysts, or abscess.) ~If you are taking anticoagulants / blood thinners (Plavix, Pletal, Lovenox, Coumadin, etc). ~If you had any steroid injections anywhere in your body within the last two weeks? 3. If patient NPO: No food after 300 (6 hours prior to procedure start time); clear fluids only up until 700 (2 hours prior to procedure start time) Contact made with patient: HARSHA Coy documented in this encounter Plan of Treatment Upcoming Encounters Date Type Department Care Team ([facility] st Contact Info) Description 12/01/2023 2:00 PM EDT Office [place] [address] Wale Huntley MD [address] [facility], [address] [place] [address] documented as of this encounter Visit Diagnoses Not on filedocumented in this encounter Care Teams Mold Capper Relationship Specialty Start Date End Date Munira Mac APRN [address] [place] [id number] PCP - General Family Medicine 08/12/16 documented as of this encounter
--- OUTSIDE RECORDS SUMMARY | 2023-10-28 01:36 | XMS_ITS | Encounter Summary ---
Author Organization [facility] Address [facility] [place] [address] Care Team Providers Care Strike Operations Officer Name Role Phone Munira Mac APRN Primary Care Provider [phone] [phone] Encounter Details Date Type Department Care Team (Late st Contact Info) Description 10/09/2017 7:25 AM EDT Anesthesia Event [place] [id number] Thomas Mcneil MD [facility] [place] [address] Mikala Donovan, [address] [place] [address] Anesthesia Record Procedure Summary Procedure Name Responsible Anesthesiologist Anesthesia Start Time Anesthesia Stop Time ENDOSCOPY WRIST W/ RELEASE TRANSVERSE CARPAL LIGAMENT (WRVU 6.39) (Left: Wrist) Thomas Mcneil MD 10/09/17 0725 10/09/17 0854 Events Date Time Event Comment 10/09/2017 0725 Start 0730 AN Verify 0731 An Start Data 0733 An Induction 0743 An Intubation 0745 Anesthesia Ready 0849 Extubation/LMA Out 0850 an stop data 0853 Recovery or ICU Handoff Elaine ent care was transferred to the destination unit staff after review of the patient's medical history, current anesthetic/surgical status and plan, according to the Provider Handoff Checklist. 0854 Stop 0910 Meds Name Total Propofol 250 mg Propofol INF 372.58 mg fentaNYL 50 mcg Midazolam 1 mg ceFAZolin 2 g * Agents Name O2 Air N2O Sevoflurane (et) * Blood No blood administrations on file. Lines, Drains, and Airways Type Details Placement Removal (RETIRED) Peripheral IV Line - Single Lumen 10/09/17; 0700; cephalic vein (lateral side of arm), right; 20 gauge; distraction, intradermal injection, tolerated well; 10/09/17; 1008 10/09/17 0700 by Janette Hunter RN 10/09/17 1008 by Janette Hunter RN Incision 10/09/17; 0745; hand ; 12/10/21 (LDA cleanup utility RA#[id number]); 1715 (LDA cleanup utility RA#[id number]) 10/09/17 0745 by Magda Wayne RN 12/10/21 1715 by Jonah Gilbert Incision 10/09/17; 0745; wris t; 12/10/21 (LDA cleanup utility RA#[id number]); 1715 (LDA cleanup utility RA#[id number]) 10/09/17 0745 by Magda Wayne RN 12/10/21 1715 by Jonah Gilbert Supraglottic Mask Ventilation: Ea sy (1); LMA Type: iGel; LMA Size: 4; Inserted by: Misbah Lo; Removal Date: 10/09/17; Removal Time: 0849 10/09/17 0750 by Misbah Lo 10/09/17 0849 by Misbah Lo Incision 10/09/17; 0813; elbo w; 12/10/21 (LDA cleanup utility RA#[id number]); 1715 (LDA cleanup utility RA#[id number]) 10/09/17 0813 by Magda Wayne RN 12/10/21 1715 by Jonah Gilbert documented in this encounter Social History Tobacco Use Types Packs/Day Years [...] on file documented as of this encounter OR Notes * Anesthesia Postprocedure Evaluation - Misbah Lo - 10/09/2017 11:36 AM EDT [facility] Department of Anesthesiology Post-procedure Note Patient: Hua García Procedure Summary Date Anesthesia Start Anesthesia Stop Room / Location 10/09/17 0725 0854 [facility] OR 24 / [facility] MAIN OR Procedure Diagnosis Surgeon Responsible Provider ENDOSCOPY WRIST W/ RELEASE TRANSVERSE CARPAL LIGAMENT (WRVU 6.39) (Left Wrist); NEUROPLASTY &/OR TRANSPOSITION, ULNAR NERVE AT ELBOW (WRVU 7.26) (Left Elbow) Carpal tunnel syndrome on left; Cubital tunnel syndrome, unspecified laterality (carpal tunnel syndrome, cubital tunnel syndrome) Luther Veliz MD Pouliot, Ryan C, MD All Anesthesia Providers: Anesthesiologist: Thomas Mcneil MD Command And Control: Misbah Lo MD Most Recent Vitals: 10/09/17 0915 BP: 144/70 Pulse: Resp: 16 Temp: SpO2: 96% Pain Patient Location: PACU/[facility] Level of Consciousness: Awake and Alert Pain Management: Pain Being Addressed PONV: None Cardiovascular Status: At Baseline Respiratory Status: At Baseline Postoperative Fluid Status: Intravascular EUvolemia Possible Anesthetic Complications: NONE apparent at time of evaluation Final Primary Anesthesia Type: General (The anesthetic type performed was the same as planned.) Comments: Patient resting comfortably on his side which he states is the way he prefers to sleep. Awake and alert without apparent adverse event. * Anesthesia Preprocedure Evaluation - Misbah Lo - 08/18/2017 10:47 AM EDT Images from the original note were not included. Pre-Anesthesia Evaluation for: Hua García a 47 y.o. male. Procedure(s): ENDOSCOPY WRIST W/ RELEASE TRANSVERSE CARPAL LIGAMENT (WRVU 6.39) NEUROPLASTY &/OR TRANSPOSITION, ULNAR NERVE AT ELBOW (WRVU 7.26) Patient Active Problem List Diagnosis ??? Obesity (BMI 30-39.9) ??? DM2 (diabetes mellitus, type 2) ??? Gastroesophageal reflux ??? Hypertension ??? Former moderate cigarette smoker (10-19 per day) Quit ~ 2013. ??? Depression ??? Anxiety ??? PTSD (post-traumatic stress disorder) ??? ONDINA (obstructive sleep apnea) Dx 2016, started on CPAP. As of August 2017: no CPAP use d/t sleeping in a tent without electricity. ??? Carpal tunnel syndrome on left ??? Cubital tunnel syndrome on left ??? Osteoarthritis of spine with radiculopathy, cervical region No past medical history on file. No past surgical history on file. Social History Substance Use Topics ??? Smoking status: Former Smoker Types: Cigarettes Quit date: 11/15/2012 ??? Smokeless tobacco: Former User Types: Chew Quit date: 11/15/2012 ??? Alcohol use Yes Comment: Very rare History Drug Use No Allergies Allergen Reactions ??? Wool Hives Medications: MAR and/or home medications have been reviewed. Physical Exam: There were no vitals filed for this visit. There is no height or weight on file to calculate BMI. Airway Assessment: Mallampati: II TM distance: >3 FB Neck ROM: full Short workman. Cardiovascular Assessment: Rhythm: regular Rate: normal PE comment: Trace ankle edema. Pulmonary Assessment: breath sounds clear to auscultation PE comment: O2 sat 96% on RA. No cough or conversational dyspnea. Dental Assessment: Comment: Dentition in very poor condition. Denies loose/chipped teeth. Misc Assessment: Other exam findings: Alert, pleasant, obese, cognition intact, decent hygiene. Anesthesia Plan: ASA 3 general, with a(n) intravenous induction Hua is a 47 year old male who presents for transverse carpal ligament release and neuroplasty of the ulnar nerve on the left. He was seen by [facility] for social reasons indicating he would not be a good candidate for OSC. PMHx is significant for DM2 taking metformin, A1c ~ 7; ONDINA prescribed but not utilizing CPAP, obesity, GERD taking ranitidine, HTN taking lisinopril, and cervical spine pain with neck extension taking acetaminophen prn and gabapentin. He additionally has a history of 30 pack-year smoking. He is able to ascend one flight of stairs but has dyspnea when walking up hills. He denies active GERD symptoms morning of surgery. Medications allergies reviewed and listed below. Patient's documented history was negative for seizures, cardiopulmonary disease, hepatic/renal disease or coagulopathy. Allergies: -- Wool -- Hives Anesthetic History: No prior anesthetic documentation. Reports tolerating GA in past for knee surgery without adverse events or history of PONV Anesthetic Plan: GA with LMA Standard ASA monitoring Adequate IV access Misbah Lo MD 10/08/2017 Region - Other Informed Consent: PAT Staff Documentation: Reason for PAT Contact: OSC Anesthesia Clearance Hx of Anesthesia Problem: Denies. Had ACL repair in [facility] ~ 1999. Was Patient Seen in PAT? Yes Additional/Outside Data Requested? No Findings, Assessment and Action: Mr. García is a 47 y.o. year old male seen in PAT for discussion of OSC clearance prior to planned CTR and ulnar nerve transposition with Dr. Luther Veliz. Pre-op OSC questionnaire was reviewed. Notable responses include: GERD; snores, witnessed apnea, ONDINA, CPAP; HTN; motion sickness; orthopnea; blood thinner (aspirin 81 mg); DM. He clarified that he is not using his CPAP now as he is sleeping in a tent. Pertinent PMH includes: DM2 (metformin, A1c ~ 7); ONDINA, no CPAP use recently; obesity improved to BMI 37 with attention to diet and exercise; GERD (ranitidine); former smoker (~30 pack-yr hx); HTN (treated); cervical spine pain (acetaminophen prn.) ROS: Denies chest pain, palpitations. Slight dizziness with cervical extension. Denies SOB, wheezing. Resolving cough after recent uncomplicated URI. Orthopnea when not using his CPAP. GERD sx well-managed with ranitidine. Cervical ROM improved with PT exercises. Exercise tolerance is fair to moderate. He walks ~1 mile in total most days to stow his tent at hismother's house and to obtain meals. He can ascend 1 FOS but has ARVIZU when walking up hills. He said he plans to recover post-operatively at his mother's home, in part because he anticipates being given a supply of pain medication and would not feel safe storing this in his tent. His plans for transportation on [place] include rides with [employer] with his mother accompanying him. Recommendation: Given his co-morbidities, including diabetes and untreated ONDINA, his need to rely niki bus service for transportation, and lack of prior anesthesia records, we mutually agreed that scheduling surgery in the Main OR would be prudent. I assured him that he would have the opportunity tospeak with his anesthesiologist the morning of the surgery regarding the specific plan for anesthesia. Mikala Donovan APRN Pre-Admission Testing [phone] documented in this encounter Miscellaneous Notes * Addendum Note - Misbah Lo - 10/12/2017 2:35 PM EDT Addendum created 10/12/17 1435 by Misbah Lo MD Anesthesia Intra Meds edited documented in this encounter Plan of Treatment Upcoming Encounters Date Type Department Care Team (Late st Contact Info) Description 12/01/2023 2:00 PM EDT Office [place] [address] Wale Huntley MD [address] [facility], [address] [place] [address] documented as of this encounter Visit Diagnoses Not on filedocumented in this encounter Administered Medications Inactive Administered Medications - up to 3 most recent administrations Medication Order MAR Action Action Date Dose Rate Site ceFAZolin (ANCEF) 1g in dextrose 5% 50mL PRN, Starting on Jasmin 10/09/17 at 0846, Until Jasmin 10/09/17 at 0952, Administer over 30 Minutes, Anesthesia Intra-op Given 10/09/2017 8:46 AM EDT 2 g fentaNYL 50 mcg/mL multi-dose injection Intravenous, PRN, Starting on Jasmin 10/09/17 at 0745, Until Jasmin 10/09/17 at 0910, Pain, Anesthesia Intra-op, Routine Given 10/09/2017 7:45 AM EDT 25 mcg Given 10/09/2017 7:38 AM EDT 25 mcg midazolam (PF) (VERSED) 1 mg/mL multi-dose injection Intravenous, PRN, Starting on Jasmin 10/09/17 at 0700, Until Jasmin 10/09/17 at 0910, Sleep, Anesthesia Intra-op, Routine Given 10/09/2017 7:00 AM EDT 1 mg propofol (DIPRIVAN) 10 mg/mL bolus injection (Anesthesia) Intravenous, PRN, Starting on Jasmin 10/09/17 at 0743, Until Jasmin 10/09/17 at 0910, Anesthesia Intra-op Given 10/09/2017 7:56 AM EDT 50 mg Given 10/09/2017 7:43 AM EDT 200 mg propofol (DIPRIVAN) infusion Intravenous, CONTINUOUS PRN, Starting on Jasmin 10/09/17 at 0745, Until Jasmin 10/09/17 at 0910, Anesthesia Intra-op, Routine Rate/Dose Change 10/09/2017 8:15 AM EDT 75 mcg/kg/min 43.6 mL/hr Rate/Dose Change 10/09/2017 8:05 AM EDT 120 mcg/kg/min 69. 8 mL/hr Rate/Dose Change 10/09/2017 8:03 AM EDT 110 mcg/kg/min 64 mL/hr documented in this encounter Care Teams Strike Operations Officer Relationship Specialty Start Date End Date Munira Mac APRN [address] [place] [id number] PCP - General Family Medicine 08/12/16 documented as of this encounter
--- OUTSIDE RECORDS SUMMARY | 2023-10-28 01:36 | XMS_ITS | Encounter Summary ---
Author Organization [facility] Address [facility] [place] [address] Care Team Providers Care Registration Officer Name Role Phone Munira Mac APRN Primary Care Provider [phone] Reason for Visit * Diagnostic Test (Routine) - Closed Specialty Diagnoses / Procedures Referred By Contac t Referred To Contact Radiology Diagnoses Idiopathic peripheral neuropathy Carpal tunnel syndrome, bilateral Ulnar neuropathy at elbow of left upper extremity Ulnar neuropathy at elbow of right upper extremity Procedures MRI Cervical Spine wo Contrast (Generic) MRI Cervical Spine wwo Contrast Mark Bowers MD [facility] [place] [address] [place] [address] Referral ID Status Reason Start Date Expiration Date V isits Requested Visits Authorized [id number] Closed Specialty Service Requested 11/29/2016 02/27/2017 2 2 Encounter Details Date Type Department Care Team (Latest Contact Info) Description 12/11/2016 12:34 PM EDT - 12/11/2016 11:59 PM EDT Hospital [place] [address] Mark Bowers MD [facility] [place] [address] Discharge Disposition: Home Social History Tobacco Use [...] Sig Dispensed Refills Start Date End Date melatonin 3 mg Tablet Take 3 mg by mouth as needed. 10/22/2017 calcium-vitamin D3 (CALCIUM 600 + D,3,) 600 mg(1,500mg) -200 unit Tablet Take 1 tablet by mouth. 06/05/2017 aspirin 81 mg Tablet, Delayed Release (E.C.) Take 81 mg by mouth daily. 11/20/2020 metFORMIN (GLUCOPHAGE) 500 mg Tablet Take 1,000 mg by mouth 2 times daily. 11/21/2020 lisinopril (PRINIVIL;ZESTRIL) 5 mg Tablet Take 5 mg by mouth daily. 11/21/2020 ranitidine (ZANTAC) 150 mg Capsule Take 150 mg by mouth every evening. 10/08/2017 cyclobenzaprine (FLEXERIL) 10 mg Tablet Take 10 mg by mouth every 8 hours as needed for Muscle spasms. 06/05/2017 acetaminophen (TYLENOL) 500 mg Tablet Take 1,000 mg by mouth as needed for Pain. 11/21/2020 meloxicam (MOBIC) 15 mg Tablet Take 15 mg by mouth daily. 11/21/2020 simvastatin (ZOCOR) 10 mg Tablet Take 10 mg by mouth nightly. 11/21/2020 gabapentin (NEURONTIN) 100 mg Capsule Take 1 capsule by mouth 3 times daily. 90 capsule 12 11/15/2016 12/25/2016 documented as of this encounter Plan of Treatment Upcoming Encounters Date Type Department Care Team (Late st Contact Info) Description 12/01/2023 2:00 PM EDT [place] [address] Wale Huntley MD [address] [facility], [address] [place] [address] documented as of this encounter Procedures Procedure Name Priority Date/Time Associated Diagnosis Comments MRI CERVICAL SPINE WO CONTRAST Routine 12/11/2016 3:11 PM EDT Idiopathic peripheral neuropathy Carpal tunnel syndrome, bilateral Ulnar neuropathy at elbow of left upper extremity Ulnar neuropathy at elbow of right upper extremity documented in this encounter Results * MRI Cervical Spine wo Contrast (Generic) (12/11/2016 3:11 PM EDT) Anatomical Region Laterality Modality C-spine Magnetic Resonan ce Impressions 12/11/2016 4:13 PM EDT Exam limited due to patient motion. Mid cervical spondylosis most advanced at C5-6 and C6-7 where there is moderate to severe left-sided neural foraminal stenosis. Mild central canal narrowing at C5-C6 and mild to moderate canal narrowing at C6-7. I have personally reviewed the image(s) and the residents interpretation and agree with the findings, Camila Robbins at 12/11/2016 4:13 PM Narrative 12/11/2016 4:13 PM EDT EXAMINATION: MRI CERVICAL SPINE WO CONTRAST (GENERIC) CLINICAL HISTORY: Left sided neck pain radiating down to arm TECHNIQUE: MRI C-spine without contrast COMPARISON: C-spine radiographs from 08/20/2016 FINDINGS: Image quality limited due to patient motion. There is reversal of the normal lordotic curve centered at C5-C6 with trace retrolisthesis of C5 on C6. No evidence of prevertebral soft tissue abnormality. The cervical cord is normal in signal within the limits of the examination. No aggressive marrow replacing process. Endplate degenerative changes at C5-6 and C6-7. Findings at individual levels: C2-C3: ??Mild facet arthropathy. No canal or neural foraminal stenosis. C3-C4: ??Mild right facet arthropathy. No significant spinal canal or neural foraminal stenosis. ? C4-C5: ?? Mild facet arthropathy and left-sided uncovertebral osteophytes contributes to mild left neural foraminal narrowing. No significant spinal canal or right neural foraminal stenosis. ? C5-C6: ??Annular disc bulge indents the ventral thecal sac contributing to mild canal narrowing. Uncovertebral osteophytes and mild facet arthropathy contribute to moderate right and moderate to severe left neural foraminal narrowing. ? C6-C7: ??Disc bulge. T1 and T2 hypointense signal within the central ventral epidural space may reflect ossification of the posterior longitudinal ligament. Contributes to indentation of the ventral cord. Mild dorsal epidural fat contributes to mild to moderate narrowing of the thecal sac. Uncovertebral osteophytes and mild facet arthropathy results in moderate to severe left worse than right neural foraminal narrowing. C7-T1: ??Central disc extrusion with cranial migration narrows the ventral thecal sac. Dorsal epidural fat contributes to mild to moderate narrowing of the canal. No neural foraminal stenosis. Procedure Note Camila Robbins MD - 12/11/2016 EXAMINATION: MRI CERVICAL SPINE WO CONTRAST (GENERIC) CLINICAL HISTORY: Left sided neck pain radiating down to arm TECHNIQUE: MRI C-spine without contrast COMPARISON: C-spine radiographs from 08/20/2016 FINDINGS: Image quality limited due to patient motion. There is reversal of the normal lordotic curve centered at C5-C6 withtrace retrolisthesis of C5 on C6. No evidence of prevertebral soft tissueabnormality. The cervical cord is normal in signal within the limits of theexamination. No aggressive marrow replacing process. Endplate degenerative changes at C5-6and C6-7. Findings at individual levels: C2-C3: Mild facet arthropathy. No canal or neural foraminal stenosis. C3-C4: Mild right facet arthropathy. No significant spinal canal orneural foraminal stenosis. C4-C5: Mild facet arthropathy and left-sided uncovertebral osteophytes contributes to mild left neural foraminal narrowing. No significant spinalcanal or right neural foraminal stenosis. C5-C6: Annular disc bulge indents the ventral thecal sac contributing tomild canal narrowing. Uncovertebral osteophytes and mild facet arthropathycontribute to moderate right and moderate to severe left neural foraminal narrowing. C6-C7: Disc bulge. T1 and T2 hypointense signal within the centralventral epidural space may reflect ossification of the posterior longitudinalligament. Contributes to indentation of the ventral cord. Mild dorsal epidural fat contributes to mild to moderate narrowing of the thecal sac.Uncovertebral osteophytes and mild facet arthropathy results in moderate to severe leftworse than right neural foraminal narrowing. C7-T1: Central disc extrusion with cranial migration narrows the ventralthecal sac. Dorsal epidural fat contributes to mild to moderate narrowing of thecanal. No neural foraminal stenosis. IMPRESSION Exam limited due to patient motion. Mid cervical spondylosis most advanced at C5-6 and C6-7 where there ismoderate to severe left-sided neural foraminal stenosis. Mild central canalnarrowing at C5-C6 and mild to moderate canal narrowing at C6-7. I have personally reviewed the image(s) and the residents interpretationand agree with the findings, Camila Robbins at 12/11/2016 4:13 PM Mark Bowers MD IMG MRI ORDERABLES documented in this encounter Visit Diagnoses Not on filedocumented in this encounter Care Teams Registration Officer Relationship Specialty Start Date End Date Munira Mac APRN [address] [place] [address] PCP - General Family Medicine 08/12/16 documented as of this encounter
--- OUTSIDE RECORDS SUMMARY | 2023-10-28 01:36 | XMS_ITS | Encounter Summary ---
Author Organization [facility] Address [facility] [place] [address] Care Team Providers Care Currency Exchange Specialist Name Role Phone Munira Mac APRN Primary Care Provider [phone] Encounter Details Date Type Department Care Team (Latest Contact Info) Description 10/09/2017 6:21 AM EDT - 10/09/2017 11:23 AM EDT Hospital Encounter [place] [phone] Colt Veliz MD [facility] [place] [address] Carpal tunnel syndrome on left; Cubital tunnel syndrome, unspecified laterality Discharge Disposition: Home Social History Tobacco Use [...] During clinic hours M-F 8-4:30 please call [phone] If it is after 5:00PM on a weekday or a weekend and it is of an urgent nature please call [phone] and ask for the on-call orthopaedic resident. [...] 11:30 AM Susie Samuels MD [facility] 11/27/2017 11:45 AM Mark Bowers MD [facility] documented in this encounter Medications at [...] Veliz MD - 10/09/2017 8:49 AM EDT [facility] Operative Note Patient Name: Hua García : [id number] MR#: [id number] Case Date: 10/09/2017 Surgeon: Surgeon(s) and Role: [...] A preoperative timeout was performed as per [facility] protocol. his left arm was exsanguinated with [...] The nerve was tracked proximally, and the Holder ofStruthers was released well proximal to the [...] Operative Note Patient Name: Hua García : [id number] MR#: [id number] Case Date: 10/09/2017 Surgeon: Surgeon(s) and Role: [...] Upcoming Encounters Date Type Department Care Team ([facility] st Contact Info) Description 12/01/2023 2:00 PM EDT [place] [address] Wale Huntely MD [address] [place] [address], [address] [place] [address] documented as of this encounter Procedures Procedure [...] POC Glucose 134 65 - 199 mg/dL [facility] Comment: Supplemental ranges: <140 mg/dL before meals <180 mg/dL all other times of the day Blood specimen (specimen) 10/09/2017 6:35 AM EDT 10/09/2017 6:35 AM EDT Colt Veliz MD POINT OF CARE TEST O RDERABLES [facility] [place] [address] documented in this encounter Visit Diagnoses Diagnosis [...] Given 10/09/2017 7:04 AM EDT 3 mg sodium chloride 0.9 % flush 5-20 mL 5-20 mL, Intravenous, EVERY 1 MIN PRN, Starting on Jasmin 10/09/17 at 0640, Until Jsamin 10/09/17 at 1328, flush, Flush pertains to [...] Day of Surgery (Day of Procedure), Routine 0649 (Given - Provid er: Janette Hunter RN) [...] Jasmin 10/09/17 at 1328, Intra-Operative (Intra-Procedure), Routine 0840 (Given [...] Routine documented in this encounter Care Teams Currency Exchange Specialist Relationship Specialty Start Date End Date Munira Mac APRN [address] [place] [id number] PCP - General Family Medicine 08/12/16 documented as of this encounter
--- OUTSIDE RECORDS SUMMARY | 2023-10-28 01:36 | XMS_ITS | Encounter Summary ---
Author Organization [facility] [place] [address] Care Team Providers Care Camp Assistant Name Role Phone Munira Mac APRN Primary Care Provider [phone] Reason for Visit * Auth/Cert Specialty Diagnoses / Procedures Referred By Kwaku t Referred To Contact Diagnoses 724.2, 338.29 (ICD-9-CM) - M54.5, G89.29 (ICD-10-CM) - Chronic bilateral low back pain without sciatica Procedures PRO INJ, PARAVERTEBRAL FACET JT W/IMAGE GUID, LUMBAR/SACRAL, SINGLE LEVEL PRO INJ, PARAVERTEBRAL FACET JT, W/IMAGE GUID, LUMBAR/SACRAL, SECOND LEVEL PRO INJ PARAVERTEBRAL FACET JT W/IMAGE GUID, LUMBAR/SACRAL, 3RD OR ADDL LEVEL INJECTION, FACET JOINT, W\FLUORO, LUMBAR, SINGLE (WRVU 1.52) INJECTION, FACET JOINT, W\FLUORO, LUMBAR, 2ND LEVEL (WRVU 1) INJECTION, FACET JOINT, W\FLUORO, LUMBAR, 3RD LEVEL (WRVU 1) Referral ID Status Reason Start Date Expiration Date Visits Re quested Visits Authorized [id number] 1 1 Encounter Details Date Type Department Care Team (Late st Contact Info) Description 02/08/2019 2:00 PM EDT - 02/08/2019 2:45 PM [place]T [place] [id number] Susie Samuels MD [facility] [place] [address] INJECTION, FACET JOINT, W\FLUORO, LUMBAR, SINGLE (WRVU 1.52) Social History Tobacco Use Types Packs/Day Years [...] Sign Reading Time Taken Comments Blood Pressure 114/73 02/08/2019 2:25 PM EDT Pulse 64 02/08/2019 2:25 PM EDT Temperature - - Respiratory Rate 16 02/08/2019 2:25 PM EDT Oxygen Saturation 96% 02/08/2019 2:25 PM EDT Inhaled Oxygen Concentration - - Weight 91.6 kg (202 lb) 02/08/2019 2:25 PM EDT Height 167.6 cm (5' 6) 02/08/2019 2:25 PM EDT Body Mass Index 32.6 02/08/2019 2:25 PM EDT documented in this encounter Discharge Instructions * Discharge Instructions* Jun Cole RN - 02/08/2019 2:48 PM EDT Pain Management Center Discharge Instructions: You were seen today by Surgeon(s): Susie Samuels MD The following was performed: Procedure(s) (LRB): [...] During Procedure Date/Time Order Dose Route Action 02/08/2019 1438 glycopyrrolate (ROBINUL) injection 366.4 mcg Intravenous Given 02/08/2019 1442 lidocaine (XYLOCAINE) 20 mg/mL (2 %) injection 3 mL Given During regular business hours, please phone [...] Post -Procedure Pain Log Patient: Hua García [id number] It is important for you to keep track of your pain after your procedure that took place 02/08/2019 This information will help your Provider to determine how to help reduce your pain. Today you had a procedure for pain in your lower back. Your pain level before the procedure in this area was 9/10. Your pain level immediately after your procedure was 0/10. Time Pain Score # Comments % of Pain Relief 1 hour 4:00 2 hours 5:00 3 hours 6:00 4 hours 7:00 Please call the nurse in the Pain [...] as of this encounter H&P Notes * Susie Samuels MD - 02/08/2019 2:24 PM EDT Patient Name: Hua García Patient Age: 49 y.o. Birthdate: 1970 Admit date: 02/08/2019 Attending Physician: Susie Samuels MD Patient Name: Hua García Patient Age: 49 y.o. Birthdate: 1970 Admit date: 02/08/2019 Attending Physician: Susie Samuels MD PREPROCEDURE HISTORY AND PHYSICAL Date of Visit: February 08, 2019 Chief Complaint: Low back pain HPI: Subjective Hua García is a 49 y.o. male who presents today for bilateral medial branch blocks bilateral L4-5, L5-S1. He had 90% relief with this procedure 12/09/18. He presents for confirmatory procedure. Of note, the patient has a history of vasovagal reaction to spinal injections in the past. He received 0.4mg of glycopyrrolate IV with that procedure and had no evidence of vagal reaction. The history is obtained from the patient, and I have reviewed medical records provided by the referring physician and located in the electronic medical record to fill in gaps in the patient's recollection of events, treatments and outcomes. LOCATION: across the lower back. PAIN LEVEL AT REST 9 with velázquez's testing PAST MEDICAL HISTORY: Past Medical History: Diagnosis Date ??? Anxiety 08/18/2017 ??? Chronic low back pain 06/23/2018 ??? Depression 08/18/2017 ??? DM2 (diabetes mellitus, type 2) 08/18/2017 ??? Obesity (BMI 30-39.9) 08/18/2017 ??? Osteoarthritis of spine with radiculopathy, cervical region 05/12/2017 ??? PTSD (post-traumatic stress disorder) 08/18/2017 PAST SURGICAL HISTORY: Past Surgical History: Procedure Laterality Date ??? PRO REVISE ULNAR NERVE AT ELBOW Left 10/09/2017 NEUROPLASTY &/OR TRANSPOSITION, ULNAR NERVE AT ELBOW (WRVU 7.26) performed by Luther Veliz MD at [facility] MAIN OR ??? PRO WRIST ARTHROSCOP, RELEASE XVERS LIG Left 10/09/2017 ENDOSCOPY WRIST W/ RELEASE TRANSVERSE CARPAL LIGAMENT (WRVU 6.39) performed by Luther Veliz MDat [facility] MAIN OR ALLERGIES: Wool MEDICATIONS: No current facility-administered medications on file prior to encounter. Current Outpatient Medications on File Prior to Encounter Medication Sig Dispense Refill ??? CHOLECALCIFEROL, VITAMIN D3, 2,000 unit Capsule Take 2,000 Units by mouth daily. ??? bisacodyl (DULCOLAX) 5 mg Tablet, Delayed Release (E.C.) Take 5 mg by mouth as needed. ??? gabapentin (NEURONTIN) 300 mg Capsule TAKE TWO CAPSULES BY MOUTH THREE TIMES DAILY (Patient nottaking: Reported on 01/05/2019) 180 capsule 5 ??? ranitidine (ZANTAC) 150 [...] file Gets together: Not on file Attends worship service: Not on file Active member of [...] Musculoskeletal: Positive for back pain. PHYSICAL EXAM: BP 114/73 Pulse 64 Resp 16 Ht 167.6 cm (5' 6) Wt 91.6 kg (202 lb) SpO2 96% BMI 32.60 kg/m?? Physical Exam Constitutional: He is oriented to [...] hours. Invalid input(s): PLT ASSESSMENT: Assessment 1. Lumbosacral spondylosis without myelopathy Hua García is a 49 y.o. male who presents today for bilateral medial branch blocks bilateral L4-5, L5-S1. He had 90% relief with this procedure 12/09/18. He presents for confirmatory procedure. Of note, the patient has a history of vasovagal reaction to spinal injections in the past. He received 0.4mg of glycopyrrolate IV with that procedure and had no evidence of vagal reaction. PLAN: Will proceed with bilateral L3 and L4 medial branch and L5 DR blocks. glycopyrrolate 0.4 mg IV for prophylaxis against vagal reaction. documented in this encounter Miscellaneous Notes * Op Note - Susie Samuels MD - 02/08/2019 2:29 PM EDT Pain Management Operative Note Patient Name: Hua García : [id number] MR#: [id number] Case Date: 02/08/2019 Surgeon: Surgeon(s) and Role: * Susie Samuels MD - Primary Present on Admission: ??? Lumbosacral spondylosis without myelopathy Postoperative diagnosis: same Procedure(s) (LRB): INJECTION, FACET JOINT, W\FLUORO, LUMBAR, SINGLE (WRVU 1.52) (Bilateral) INJECTION, FACET JOINT, W\FLUORO, LUMBAR, 2ND LEVEL (WRVU 1) (Bilateral) INJECTION, FACET JOINT, W\FLUORO, LUMBAR, 3RD LEVEL (WRVU 1) (Bilateral) Diagnostic Lumbar Medial Branch Nerve Blocks bilateralL4-L5 and L5-S1 Procedure date: 02/08/2019 Chief Complaint: back pain Diagnosis: 1. Lumbosacral spondylosis without myelopathy Preoperative Note Hua García is a 49 y.o. male who presents today for bilateral medial branch blocks bilateral L4-5, L5-S1. He had 90% relief with this procedure 12/09/18. He presents for confirmatory procedure. Of note, the patient has a history of vasovagal reaction to spinal injections in the past. He received 0.4mg of glycopyrrolate IV with that procedure and had no evidence of vagal reaction. ?? PLAN: Will proceed with bilateral L3 and L4 medial branch and L5 DR blocks. ?? glycopyrrolate 0.4 mg IV for prophylaxis against vagal reaction. History and Exam Patient demonstrates today moderate to severe non- radicular back pain without neurologic deficit aggravated by hyperextension yes Back pain greater than leg pain yes Patient today has tenderness over the suspected joint(s) yes History of post-traumatic injury no Back pain associated with suspected motion segment instability or Hypermobility or pseudoarthrosis no Pre-testing pain score: 12/22 Hua García has been referred to the [...] vital signs were monitored, time out was done. Cap, glove, mask were worn. bilateral Medial Branch Nerves L-3 and L-4 Under fluoroscopic guidance, in the AP view, coaxial approach, 25-gauge spinal needles were advanced to the junction of the L-4 and L-5 transverse processes and superior articulating processes. AP and lateral views were obtained. The needle tip was outside of the neural foramen. Omnipaque 240 was injected under live fluoroscopy; there was no evidence of intravascular uptake, the target for the MBN was delineated. LIDOCAINE 2% 0.5 ml was administered at each level after negative aspiration. bilateral L5 Dorsal ramus:: Under fluoroscopic guidance, in AP view, coaxial approach, 25G spinal needles were advanced to the junction of the sacral ala and superior articulating processes. AP and lateral views were obtained. Omnipaque 240 was injected under live fluoroscopy; there was no evidence of intravascular uptake, the target for the MBN was delineated. LIDOCAINE 2% 0.5 ml was administered after negative aspiration. Outcome: The patient tolerated the procedure well and had stable vital signs. The patient noted after getting up after the procedure that their pain was at a 0 out of 10 level. Preprocedure pain level was a 9 out of 10. 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 The patient received written instructions as [...] will proceed to lumbar medial branch nerve radiofrequency. The patient will otherwise follow-up with referring provider. The patient received glycopyrrolate 0.4 mg IV. There was not evidence of a vagal reaction. RECOMMEND THAT PATIENT HAVE AN IV WITH FUTURE PROCEDURES AND BE PRETREATED WITH GLYCOPYRROLATE. I personally performed this entire procedure. Susie Samuels MD ABPM-subspecialty board certification in Pain Retirement Benefits SpecialistBean Sprout Laborer Department of Anesthesiology/Section of Pain Medicine [facility] CC: Munira Mac APRN [email or web address] documented in this encounter Plan of Treatment Upcoming Encounters Date Type Department Care Team (Late st Contact Info) Description 12/01/2023 2:00 PM EDT [place] [phone] Wale Huntley MD [address] [place] [address], [address] [place] [address] documented as of this encounter Visit Diagnoses Not on filedocumented in this encounter Administered Medications Inactive Administered Medications - up to 3 most recent administrations Medication Order MAR Action Action Date Dose Rate Site glycopyrrolate (ROBINUL) injection ONCE PRN, Starting on Fri02/08/19 at 1438, Until Fri02/08/19 at 1649, Intra-Operative (Intra-Procedure), Routine Given 02/08/2019 2:38 PM EDT 366.4 mcg lidocaine (XYLOCAINE) 20 mg/mL (2 %) injection ONCE PRN, Starting on Fri02/08/19 at 1442, Until Fri02/08/19 at 1649, Intra-Operative (Intra-Procedure), Routine Given 02/08/2019 2:42 PM EDT 3 mLs documented in this encounter Active and Recently Administered Medications Times are shown in EDT. PRN Medication Order 02/06/2019 02/07/2019 02/08/2019 glycopyrrolate (ROBINUL) injection (CANCELED) ONCE PRN, Starting on 02/08/19 at 1438, Until Fri02/08/19 at 1649, Intra-Operative (Intra-Procedure), Routine 1438 (Given - Provid er: Susie Samuels MD) lidocaine (XYLOCAINE) 20 mg/mL (2 %) injection (CANCELED) ONCE PRN, Starting on Fri02/08/19 at 1442, Until Fri02/08/19 at 1649, Intra-Operative (Intra-Procedure), Routine 1442 (Given - Provid er: Susie Samuels MD - Comment: Bilateral LMBB) documented in this encounter Care Teams Camp Assistant Relationship Specialty Start Date End Date Munira Mac APRN [address] [place] [id number] PCP - General Family Medicine 08/12/16 documented as of this encounter
--- OUTSIDE RECORDS SUMMARY | 2023-10-28 01:36 | XMS_ITS | Encounter Summary ---
Author Organization [facility] Address [facility] Geetha sanchez [place] [id number] Care Team Providers Care Technical Sales Support Specialist Name Role Phone Munira Mac APRN Primary Care Provider [phone] [phone] Reason for Referral * Routine Exam (Routine) - Specialty Diagnoses / Procedures Referred By Contac t Referred To Contact Diagnoses Cervical spondylosis without myelopathy Procedures Epidural steroid injection Cintia Samuels MD [facility] [place] [address] Referral ID Status Reason Start Date Expiration Date Visits Requested Visits Authorized [id number] Specialty Service Requested 05/12/2017 05/12/2018 1 1 Reason for Visit * Reason Comments Neck Pain * Surgical (Routine) - Closed Specialty Diagnoses / Procedures Referred By Contac t Referred To Contact Pain Management Diagnoses Cervical spondylosis with radiculopathy Procedures PRO INJECTION DX/THER SBST INTRLMNR CRV/THRC W/IMG Mrak Nieto [place] [address] [facility] [address] [place] [phone] Referral ID Status Reason Start Date Expiration Date V isits Requested Visits Authorized [id number] Closed Consult, Test & Treat 12/13/2016 12/13/2017 1 1 Encounter Details Date Type Department Care Team (Latest Contact Info) Description 05/12/2017 2:30 PM EST Procedure visit Pain Management at [facility] [place] [address] Cintia Samuels MD [facility] [place] [address] Cervical spondylosis without myelopathy Social History Tobacco Use Types Packs/Day Years [...] Sign Reading Time Taken Comments Blood Pressure 119/72 05/12/2017 2:43 PM EST Pulse 56 05/12/2017 2:43 PM EST Temperature - - Respiratory Rate - - Oxygen Saturation 96% 05/12/2017 2:43 PM EST Inhaled Oxygen Concentration - - Weight 108.9 kg (240 lb) 05/12/2017 2:21 PM EST Height 167.6 cm (5' 6) 05/12/2017 2:21 PM EST Body Mass Index 38.74 05/12/2017 2:21 PM EST documented in this encounter Patient Instructions * Patient Instructions* Aminta Hughes RN - 05/12/2017 2:30 PM EST Pain Management Center Discharge Instructions: You were seen by Dr. Cintia Samuels MD and Sun Banks MD who performed cervical epidural steroid injection. It is normal that the injection site will be sore for up to 48 hours. You may also experience mild stiffness in the joint near the injection site. [x] You may resume your normal activities: tomorrow. You may shower today. DO NOT tub [...] not apply heat today. [x] You received Midazolam 1 mg through an intravenous line, to lessen the anxiety/pain of your procedure. DO NOT operate heavy or dangerous equipment/tools, or sign important papers today. Attempt to empty your bladder 4-6 hours after your procedure. [x] If you have diabetes, monitor your blood sugars frequently. If your blood sugar increases and is of concern, contact your Primary Care Provider. You received the following medications: Lidocaine, Omnipaque (contrast dye) and Dexamethasone Sodium Phosphate 10 mg. During regular business hours, please phone the [...] or proceed to your local emergency department. Aminta Hughes RN Special instructions IV anxiolysis: Yes IV placement: ??? Location of IV Insertion: right [ x ] hand [ ] anterior forearm [ ] posterior forearm [ ] AC [ ] upper arm [ ] other: ??? IV Gauge: [ x ] 24G [ ] 22G [ ] 20G After IV insertion completed, IV was secured with occlusive transparent dressing. IV site is patentand intact. Patient is without complaint upon completion of IV insertion. ??? Started by: Aminta Hughes RN ? Initiated by: Aminta Hughes RN ? IV Solution: LR 1000ml - rate as directed by proceduralist ??? Total Volume Intravenous Fluid infused documented in the Medication Administration Record (MAR) Site condition at IV removal: [ x ] Clear [ ] Bruised [ ] other: Administration of IV anxiolysis procedural medications documented in MAR as ordered by proceduralist documented in this encounter Progress Notes * Sun Banks - 05/12/2017 2:30 PM EST PREPROCEDURE HISTORY AND PHYSICAL Date of Visit: May 12, 2017 Chief Complaint: Left Upper extremity pain HPI: Subjective Hua García is a 47 y.o. male who presents today for cervical TOÑO for cervical radiculopathy. He denies anticoagulation or NSAIDS. The history is obtained from the patient, and I have reviewed medical records provided by the referring physician and located in the electronic medical record to fill in gaps in the patient's recollection of events, treatments and outcomes. LOCATION: Neck pain radiating to the LUE. PAIN LEVEL AT REST 7 PAST MEDICAL HISTORY: No past medical history on file. PAST SURGICAL HISTORY: No past surgical history on file. ALLERGIES: Review of patient's allergies indicates no known allergies. MEDICATIONS: Medications 05/12/17 1422 Medication Sig Taking? gabapentin (NEURONTIN) 300 mg Capsule Take 1 capsule by mouth 3 times daily. Yes melatonin 3 mg Tablet Take 3 mg by mouth as needed. Yes aspirin 81 mg Tablet, Delayed Release (E.C.) Take 81 mg by mouth daily. Yes metFORMIN (GLUCOPHAGE) 500 mg Tablet Take 1,000 mg by mouth 2 times daily. Yes lisinopril (PRINIVIL;ZESTRIL) 5 mg Tablet Take 5 mg by mouth daily. Yes ranitidine (ZANTAC) 150 mg Capsule Take 150 mg by mouth every evening. Yes cyclobenzaprine (FLEXERIL) 10 mg Tablet Take 10 mg by mouth every 8 hours as needed for Muscle spasms. Yes acetaminophen (TYLENOL) 500 mg Tablet Take 1,000 mg by mouth every 6 hours as needed for Pain. Yes meloxicam (MOBIC) 15 mg Tablet Take 15 mg by mouth daily as needed for Pain. Yes simvastatin (ZOCOR) 10 mg Tablet Take 10 mg by mouth nightly. Yes b complex vitamins Tablet Take 1 tablet by mouth daily. calcium-vitamin D3 (CALCIUM 600 + D,3,) 600 mg(1,500mg) -200 unit Tablet Take 1 tablet by mouth. FAMILY HISTORY: No family history on file. SOCIAL HISTORY: Social History Social History ??? Marital status: Single Spouse name: N/A ??? Number of children: N/A ??? Years of education: N/A Occupational History ??? Not on file. Social History Main Topics ??? Smoking status: Former Smoker Types: Cigarettes Quit date: 11/15/2012 ??? Smokeless tobacco: Former User Types: Chew Quit date: 11/15/2012 ??? Alcohol use Yes Comment: Very rare ??? Drug use: No ??? Sexual activity: Not on file Other Topics Concern ??? Not on file Social History Narrative ROS: He denies recent rash or illness. PHYSICAL EXAM: Ht 167.6 cm (5' 6) Wt 108.9 kg (240 lb) BMI 38.74 kg/m2 Physical Exam Constitutional: He appears well-developed and well-nourished. Cardiovascular: Normal rate. Murmur (grade 1) heard. Pulmonary/Chest: Effort normal and breath sounds normal. Psychiatric: He has a normal mood and affect. His behavior is normal. Judgment and thought content normal. RADIOLOGIC DATA: MRI reviewed LABS/DX RESULTS: Not indicated ASSESSMENT: Assessment 1. Cervical spondylosis without myelopathy PLAN: There are no contraindications to the planned procedure. Proceed with Cervical TOÑO. Sun Banks MD Pain Fellow * Aminta Hughes RN - 05/12/2017 2:30 PM EST Pre-Procedure Screening Questions: 1. Status: No 2. Patient states they have a taxi cab driver to transport after procedure? Yes 3. Patient taking antibiotics at present? No 4. NPO per Pain Management Center protocol? Yes 5. Patient diabetic: Yes Patient routinely taking anticoagulants ? No Patient Vital Signs documented in Doc Flowsheets associated with this encounter. Patient Discharge Instructions were reviewed with patient and copy provided to patient. documented in this encounter Procedure Notes * Cintia Samuels MD - 05/12/2017 2:30 PM ESTAssociated Order(s): EPIDURAL STEROID INJECTION Procedure(s): EPIDURAL STEROID INJECTION Pre-Procedure Diagnose(s): Cervical spondylosis without myelopathy PROCEDURE NOTE: Cervical Epidural Steroid Injection with Fluoroscopic Guidance T1-T2 Chief Complaint: neck pain, left UE pain Hua García has been referred to the Pain Management Center for cervical epidural steroid injection. The patient has cervical stenosis at C7-T1 and the T1-2 level was chosen for accessing the epiduralspace. Mr. García was interviewed and the medical record reviewed. MRI was reviewed. There were no medical, pharmacologic, radiographic or other structural contraindications to attempting fluoroscopically guided epidural steroid injection. Risks and expected side effects as well as potential benefit of the procedure were reviewed with Mr. García, and his voiced concerns were addressed. The printed consent form was signed and witnessed. Standard time-out procedure was performed. Hua García was greeted by the nurse who verified patients name and . Patient was then taken to the fluoroscopy suite. Technique After informed written consent was obtained, the patient was placed in the prone position. The cervical spine was prepped with chloraprep and draped. Sterile technique was used, vital signs (blood pressure cuff and pulse oximeter) were monitored,cap, glove, mask were worn ,time out was done. The patient received midazolam 1 mg IV. Using fluoroscopic guidance, the T1-2 interspace was identified. The skin and subcutaneous structures were anesthetized with lidocaine 1% to a total volume of 5_ml. An 18 g tuohy needle was advanced to the medial aspect of the lamina of T2. The needle was then advanced toward midiline. Before even started ESTELA, the patient's HR decreased into the 40's. He was responsive, BP was 119/72. He was given glycopyrrolate 0.3 mg. HR increased to 60's. The patient was asked if he wished to continue and hedecided that he wanted end the procedure and see if his neurologist had any other recommendations. Radiographs were archived in radiology. Outcome: The patient tolerated the procedure well and had stable vital signs. Follow up plans and appointments were discussed with Hua García. The patient was observed in the pain clinic and then discharged after having met discharge criteria to the care of a taxi cab driver. The patient received written instructions as documented in nursing records. Preprocedure pain level: unchanged Postprocedure pain level: 10/21 COMMENTS: The patient received midazolam 1 mg IV and glycopyrrolate 0.3 mg IV. Follow-up with No primary care provider on file. Dr. Bowers. CC: Munira Mac, MARK @JOSE@ Sun Banks MD Pain Fellow I was the attending physician supervising the fellow or resident in the above care and I was present with the resident for the entire procedure. CINTIA SAMUELS MD documented in this encounter Plan of Treatment Upcoming Encounters Date Type Department Care Team ([facility] st Contact Info) Description 12/01/2023 2:00 PM EDT [place] [address] Wale Huntley MD [address] [place] [address], [address] [place] [address] documented as of this encounter Procedures Procedure Name Priority Date/Time Associated Diagnosis Comments EPIDURAL STEROID INJECTION Routine 05/15/2017 6:08 PM EST Cervical spondylosis without myelopathy documented in this encounter Results * EPIDURAL STEROID INJECTION (05/15/2017 6:08 PM EST) Narrative Cintia Samuels MD - 05/15/2017 6:08 PM EST Cintia Samuels MD ? 05/15/2017 ??6:08 PM ?? PROCEDURE NOTE: Cervical Epidural Steroid Injection with Fluoroscopic Guidance ??T1-T2 Chief Complaint: neck pain, left UE pain Hua García has been referred to the Pain Management Center for cervical epidural steroid injection. The patient has cervical stenosis at C7-T1 and the T1-2 level was chosen for accessing the epidural space. Mr. García was interviewed and the medical record reviewed. ??MRI was reviewed. There were no medical, pharmacologic, radiographic or other structural contraindications to attempting fluoroscopically guided epidural steroid injection. ??Risks and expected side effects as well as potential benefit of the procedure were reviewed with Mr. García, and his voiced concerns were addressed. ??The printed consent form was signed and witnessed. ??Standard time-out procedure was performed. Hua García was greeted by the nurse who verified patients name and . ??Patient was then taken to the fluoroscopy suite. Technique After informed written consent was obtained, the patient was placed in the prone position. The cervical spine was prepped with chloraprep and draped. ??Sterile technique was used, ??vital signs (blood pressure cuff and pulse oximeter) were monitored,cap, glove, mask were worn ,time out was done. The patient received midazolam 1 mg IV. Using fluoroscopic guidance, the ??T1-2 interspace was identified. The skin and subcutaneous structures were anesthetized with lidocaine 1% to a total volume of 5_ml. ?? An 18 g tuohy needle was advanced to the medial aspect of the lamina of T2. ??The needle was then advanced toward midiline. Before even started ESTELA, the patient's HR decreased into the 40's. He was responsive, BP was 119/72. He was given glycopyrrolate 0.3 mg. HR increased to 60's. The patient was asked if he wished to continue and he decided that he wanted end the procedure and see if his neurologist had any other recommendations. ?? Radiographs were archived in radiology. Outcome: The patient tolerated the procedure well and had stable vital signs. ??Follow up plans and appointments were discussed with Hua García. The patient was observed in the pain clinic and then discharged after having met discharge criteria ?? to the care of a taxi cab driver. ??The patient received written instructions as documented in nursing records. ?? Preprocedure pain level: unchanged Postprocedure pain level: 7/10 COMMENTS: The patient received midazolam 1 mg IV and glycopyrrolate 0.3 mg IV. Follow-up with No primary care provider on file. Dr. Bowers. CC: Munira Mac, MARK @JOSE@ Sun Banks MD Pain Fellow I was the attending physician supervising the fellow or resident in the above care and I was present with the resident for the entire procedure. CINTIA SAMUELS MD Cintia Samuels MD NEUROLOGY ORDERABLES documented in this encounter Visit Diagnoses Diagnosis Cervical spondylosis without myelopathy documented in this encounter Administered Medications Inactive Administered Medications - up to 3 most recent administrations Medication Order MAR Action Action Date Dose Rate Site dexamethasone(PF) (DECADRON) 10 mg/mL injection 10 mg 10 mg, Epidural, ONCE, 1 dose, On Fri05/12/17 at 1445, Routine Given 05/12/2017 2:45 PM EST 10 mg glycopyrrolate 0.2 mg/mL injection 0.3 mg 0.3 mg, Intravenous, ONCE, 1 dose, On Fri05/12/17 at 1515, Routine New Bag 05/12/2017 3:15 PM EST 0.3 mg iohexol (OMNIPAQUE) 240 mg/mL solution 1 mL 1 mL, Epidural, ONCE, 1 dose, On Fri05/12/17 at 1445, Wasted 49 ml, Routine Given 05/12/2017 2:45 PM EST 1 mL lactated Ringers infusion 100 mL 100 mL, Intravenous, ONCE, 1 dose, On Fri05/12/17 at 1445 New Bag 05/12/2017 2:45 PM EST 100 mLs midazolam (PF) (VERSED) 1 mg/mL injection 1 mg 1 mg, Intravenous, ONCE, 1 dose, On Fri05/12/17 at 1445, Routine Given 05/12/2017 2:45 PM EST 1 mg documented in this encounter Care Teams Technical Sales Support Specialist Relationship Specialty Start Date End Date Munira Mac APRN [address] [place] [address] PCP - General Family Medicine 08/12/16 documented as of this encounter
--- OUTSIDE RECORDS SUMMARY | 2023-10-28 01:36 | XMS_ITS | Encounter Summary ---
Author Organization [facility] Address [facility] [place] [address] Care Team Providers Care Manager Recovery Name Role Phone Munira Mac APRN Primary Care Provider [phone] [phone] Reason for Visit * Auth/Cert Specialty Diagnoses [...] Expiration Date Visits Re quested Visits Authorized [id number] 1 1 Encounter Details Date Type Department Care Team (Late st Contact Info) Description 02/08/2019 2:00 PM EDT Ancillary Procedure [place] [id number] Susie Samuels MD [facility] [place] [place] [address] Pain Social History Tobacco Use Types Packs/Day [...] Upcoming Encounters Date Type Department Care Team ([facility] st Contact Info) Description 12/01/2023 2:00 PM EDT Office [place] [address] Wale Huntley MD [address] [facility], [address] [place] [address] documented as of this encounter Procedures Procedure Name Priority Date/Time Associated Diagnosis Comments FILM LIBRARY STORAGE ONLY PAIN CLINIC C ARM Routine 02/08/2019 4:48 PM EDT Pain documented in this encounter Results * Film Library- Storage Only pain Clinic C-Arm (02/08/2019 4:48 PM EDT) Narrative [facility] - 02/08/2019 4:48 PM EDT See PACS for result report. Susie Samuels MD IMG FILM LIBRARY ORD ERABLES [place], [place] documented in this encounter Visit Diagnoses Diagnosis Pain Generalized pain documented in this encounter Care Teams Manager Recovery Relationship Specialty Start Date End Date Munira Mac APRN [address] [place] [address] PCP - General Family Medicine 08/12/16 documented as of this encounter
--- OUTSIDE RECORDS SUMMARY | 2023-10-28 01:36 | XMS_ITS | Encounter Summary ---
[place] [address] Care Team Providers Care Barge Hand Name Role Phone Munira Mac APRN Primary Care Provider [phone] [phone] Encounter Details Date Type Department Care Team (Late Contact Info) Description 08/18/2017 10:00 AM EDT Office [place] [phone] Social History Tobacco Use Types Packs/Day Years [...] Taken Comments Blood Pressure - - Pulse 82 08/18/2017 10:00 AM EDT Temperature - - Respiratory Rate - - Oxygen Saturation 96% 08/18/2017 10:00 AM EDT Inhaled Oxygen Concentration - - Weight 105 kg (231 lb 6.4 oz) 08/18/2017 10:00 A M EDT Height 167.6 cm (5' 6) 08/18/2017 10:00 AM EDT Body Mass Index 37.35 08/18/2017 10:00 AM EDT documented in this encounter Plan of Treatment Upcoming Encounters Date Type Department Care Team (Late st Contact Info) Description 12/01/2023 2:00 PM EDT Office [place] [phone] Wale Huntley MD [address] [place] [address], [address] [place] [address] documented as of this encounter Visit Diagnoses Not on filedocumented in this encounter Care Teams Barge Hand Relationship Specialty Start Date End Date Munira Mac APRN [address] [place] [id number] PCP - General Family Medicine 08/12/16 documented as of this encounter
--- OUTSIDE RECORDS SUMMARY | 2023-10-28 01:36 | XMS_ITS | Encounter Summary ---
Author Organization [facility] [place] [address] Care Team Providers Care Plastic Battery Assembler Name Role Phone Munira Mac APRN Primary Care Provider +1 [phone] Encounter Details Date Type Department Care Team (Late st Contact Info) Description 10/14/2017 [place] [address] Julia Alcocer, RN Social History Tobacco Use Types Packs/Day [...] encounter Miscellaneous Notes * Telephone Encounter - Julia Alcocer, RN - 10/14/2017 10:14 AM EDT Subjective: Telephone call from patient. He calls to inquire about showering and whether or not he is able to use a washcloth on his incision to clean up the area. He reports that his dressing came off of his elbow incision. He denies any increased pain, fever, drainage, redness, heat or swelling from either incision. He is still wearing his splint. Plan: Advised to keep both incisions dry. Do not wash or get water onto either incision. Continue to wear splint. Call with any worsening or new symptoms prior to follow up on 10/28. Patient/Responsible libertarian voices an understanding of advice? Yes Patient/Responsible libertarian intends to comply with action/disposition: Yes documented in this encounter Plan of Treatment Upcoming Encounters Date Type Department Care Team (Late st Contact Info) Description 12/01/2023 2:00 PM EDT [place] [address] Wale Huntley MD [address] [facility], [address] [place] [address] documented as of this encounter Visit Diagnoses Not on filedocumented in this encounter Care Teams Plastic Battery Assembler Relationship Specialty Start Date End Date Munira Mac APRN [address] [place] [id number] PCP - General Family Medicine 08/12/16 documented as of this encounter
--- OUTSIDE RECORDS SUMMARY | 2023-10-28 01:36 | XMS_ITS | Encounter Summary ---
Author Organization [facility] Address [facility] laura [place] [id number] Care Team Providers Care Claims Account Manager Name Role Phone Munira Mac APRN Primary Care Provider [phone] Reason for Referral * Surgical (Routine) - Closed Specialty Diagnoses / Procedures Referred By Contac t Referred To Contact Pain Management Diagnoses Cervical spondylosis with radiculopathy Procedures PRO INJECTION DX/THER SBST INTRLMNR CRV/THRC W/IMG GDN Mark Bowers MD [facility] [place] [address] [facility] [address] [place] [phone] Referral ID Status Reason Start Date Expiration Date V isits Requested Visits Authorized [id number] Closed Consult, Test & Treat 12/13/2016 12/13/2017 1 1 Encounter Details Date Type Department Care Team (Late st Contact Info) Description 12/13/2016 [place] [address] Mark Bowers MD [facility] [place] [address] Cervical spondylosis with radiculopathy Social History Tobacco Use Types Packs/Day Years [...] Upcoming Encounters Date Type Department Care Team ([facility] st Contact Info) Description 12/01/2023 2:00 PM EDT [place] [address] Wale Huntley MD [address] [place] [address], [address] [place] [address] Scheduled Referrals Name Type Priority Associated Diagnoses Orde r Schedule Referral to Pain Clinic Outpatient Referral Routine Cervical spondylosis with radiculopathy Ordered: 12/13/2016 documented as of this encounter Visit Diagnoses Diagnosis Cervical spondylosis with radiculopathy Cervical spondylosis with myelopathy documented in this encounter Care Teams Claims Account Manager Relationship Specialty Start Date End Date Munira Mac APRN [address] [place] [id number] PCP - General Family Medicine 08/12/16 documented as of this encounter
--- OUTSIDE RECORDS SUMMARY | 2023-10-28 01:36 | XMS_ITS | Encounter Summary ---
Author Organization [facility] Address [facility] [place] [address] Care Team Providers Care Youth Care Specialist Name Role Phone Munira Mac APRN Primary Care Provider [phone] Reason for Visit * Reason Comments Bilateral Hand Pain CTS * Consultation (Routine) - Closed Specialty Diagnoses / Procedures Referred By Kwaku fernandez Referred To Contact Orthopaedics Diagnoses Carpal tunnel syndrome, bilateral Ulnar neuropathy of left upper extremity Mark Bowers MD [facility] [address] [place] [id number] Luther Veliz MD [facility] [place] [address] Referral ID Status Reason Start Date Expiration Date V isits Requested Visits Authorized [id number] Closed Consult, Test & Treat 05/29/2017 05/29/2018 1 1 Encounter Details Date Type Department Care Team (Late st Contact Info) Description 07/30/2017 1:15 PM EDT [place] [address] Luther Veliz MD [facility] [place] [address] Carpal tunnel syndrome on left; Cubital tunnel syndrome, unspecified laterality; Cubital tunnel syndrome on left Social History Tobacco Use Types Packs/Day Years [...] Sign Reading Time Taken Comments Blood Pressure 137/80 07/30/2017 1:07 PM EDT Pulse 83 07/30/2017 1:07 PM EDT Temperature - - Respiratory Rate - - Oxygen Saturation - - Inhaled Oxygen Concentration - - Weight 114.3 kg (252 lb) 07/30/2017 1:07 PM EDT sated Height 167.6 cm (5' 6) 07/30/2017 1:07 PM EDT s tatd Body Mass Index 40.67 07/30/2017 1:07 PM EDT documented in this encounter Progress Notes * Luther Veliz MD - 07/30/2017 1:15 PM EDT Hua García is a new patient to me today who presents with a diagnosis of numbness and paresthesias in his left hand. He reports that he has had the symptoms for more than 8 months and finds them to be very problematic because he has constant numbness and tingling in these digits. He has hadprior electrodiagnostic studies done in November of 05/21/2016 which showed bilateral cubital and carpal tunnel syndromes. He was also seen by Sidney Torres MD who made a diagnosis of cervical spondylosis. Dr. Ko reportedly told him that he may be a candidate for cervical fusion after addressing his peripheral nerve compressions if his symptoms persist. Mr. García denies a history of trauma which caused these symptoms to occur. He reports that he does have splints for carpal tunnel syndrome but he does not use them. He very commonly has numbness in his hands at night and in the morning. He alsohas weakness and daytime paresthesias chiefly in his left upper extremity. He does have known right cubital and carpal tunnel syndromes but he is not very symptomatic in his right upper extremity. He does have a history of type 2 diabetes, posttraumatic stress disorder, depression, hypertension,and hypothyroidism. He also has neck pain. Examination reveals a pleasant alert male in no apparent distress. He has no obvious intrinsic or thenar atrophy in his left upper extremity. He is paresthetic to light touch in the ulnar distribution digits of his left hand and he has decreased sensation to light touch in the median nerve disposition digits of his left hand. He has profoundly positive Tinel tests over the ulnar nerve at the ulnar groove as well as over the median nerve the carpal tunnel. He has weakness of palmar abduction of his thumb but no obvious intrinsic weakness in his left hand. He has no digital triggering. He has no dermatologic lesions in his upper extremity. His left upper extremity is well-perfused. Assessment: Left cubital and left carpal tunnel syndromes. Plan: He was offered surgical decompressions of his left cubital and carpal tunnel syndromes. His left carpal tunnel syndrome would likely be addressed endoscopically but he is aware that an open procedure may be needed. I would also try to do an in situ decompression for his left cubital tunnel syndrome but he is aware that a transposition of his ulnar nerve may be needed. I had an extensive discussion with him about the risks of these procedures including the possibilities of complications like infection, neurovascular or tendon injury, no relief of her of his neurogenic symptoms, postoperative ulnar nerve subluxation requiring revision surgery, recurrence of neuropathy, weakness, and surgical site pain. He may have additional reasons for numbness and tingling which may not be addressedby the surgeries and he is aware of this, but he wishes to start with addressing his peripheral neuropathies. We will schedule left cubital and carpal tunnel releases to be done in the near future asper his request. * Yomaira Rangel RN - 07/30/2017 1:15 PM EDT Pre op teaching done for endoscopic carpal tunnel release. Emphasis placed on post op hand elevation with hand above heart, fingers above palm, palm above wrist and wrist above elbow. Patient also advised to use ice for swelling management. Discussed importance of flexing fingers against original dressing. Take dressing off on day 3 and fully flex and extend fingers. Place Band-Aid over suture, no ointments. Reviewed suggestions for taking post op pain medication. Patient was advised not to take blood thinners or NSAIDS 7 days prior to surgery. Tylenol is okay to use. Questions solicited and answered to patient satisfaction. Written material provided. Patient knows to call with any additional questions or concerns. Pre-Op teaching for cubital tunnel release Pre op teaching done for cubital tunnel release. Emphasis placed on proper post elbow elevation with hand above palm,palm above wrist,wrist above elbow,elbow above shoulder level. Pt instructed to keep original dressing intact until first post operative visit. Reviewed importance of moving fingers and wrist but is aware not to use operative extremity for any lifting,pulling orpushing. Pt also aware to keep dressing dry ,covering it with a plastic bag and keeping extremity up and out of the way if taking a shower. Suggestions for taking post pain medication was recommended taking the least amount and assessing this on a daily basis and should be tapered within a few days. If patient experiencing persistent pain,fever or chills patient aware to call us. Questions solicited and answered to patient satisfaction. Pt knows to call with any additional questions or concerns. documented in this encounter Plan of Treatment Upcoming Encounters Date Type Department Care Team ([facility] st Contact Info) Description 12/01/2023 2:00 PM EDT [place] [address] Wale Huntley MD [address] [place] [address], [address] [place] [address] documented as of this encounter Procedures Procedure Name Priority Date/Time Associated Diagnosis Comments ARTHROSCOPY WRIST W/ RELEASE TRANSVERSE CARPAL LIGAMENT Routine 07/30/2017 1:21 PM EDT Carpal tunnel syndrome on left Cubital tunnel syndrome, unspecified laterality documented in this encounter Visit Diagnoses Diagnosis Carpal tunnel syndrome on left Carpal tunnel syndrome Cubital tunnel syndrome, unspecified laterality Cubital tunnel syndrome on left Lesion of ulnar nerve documented in this encounter Care Teams Youth Care Specialist Relationship Specialty Start Date End Date Munira Mac APRN [address] [place] [address] PCP - General Family Medicine 08/12/16 documented as of this encounter
--- OUTSIDE RECORDS SUMMARY | 2023-10-28 01:36 | XMS_ITS | Encounter Summary ---
Author Organization [facility] Address [facility] [place] [address] Care Team Providers Care Ordnance Engineer Name Role Phone Munira Mac APRN Primary Care Provider [phone] Reason for Visit * Auth/Cert Specialty Diagnoses [...] Expiration Date Visits Re quested Visits Authorized [id number] 1 1 Encounter Details Date Type Department Care Team (Late Contact Info) Description 12/09/2018 10:15 AM EDT Ancillary [place] [phone] Susie Samuels MD [facility] [place] [address] Pain Social History Tobacco Use Types Packs/Day [...] 2:00 PM EDT Office [place] [address] Wale Huntley MD [address] [facility], [address] [place] [address] documented as of this encounter Procedures Procedure Name Priority Date/Time Associated Diagnosis Comments FILM LIBRARY STORAGE ONLY PAIN CLINIC C ARM Routine 12/09/2018 3:26 PM EDT Pain documented in this encounter Results * Film Library- Storage Only pain Clinic C-Arm (12/09/2018 3:26 PM EDT) Narrative [facility] - 12/09/2018 3:26 PM EDT See PACS for result report. Susie Samuels MD IMG FILM LIBRARY ORD ERABLES Performing Organization Address City/State/[facility] Co de Phone Number [place], [place] documented in this encounter Visit Diagnoses Diagnosis Pain Generalized pain documented in this encounter Care Teams Ordnance Engineer Relationship Specialty Start Date End Date Munira Mac APRN [address] [place] [address] PCP - General Family Medicine 08/12/16 documented as of this encounter
--- OUTSIDE RECORDS SUMMARY | 2023-10-28 01:36 | XMS_ITS | Encounter Summary ---
[place] [address] Care Team Providers Care Golf Club Repairer Name Role Phone Munira Mac APRN Primary Care Provider [phone] Encounter Details Date Type Department Care Team (Late Contact Info) Description 08/01/2017 Telephone [place] [phone] Ana Hurtado RN Social History Tobacco Use Types Packs/Day [...] encounter Miscellaneous Notes * Telephone Encounter - Ana Hurtado LPN - 08/01/2017 4:39 PM EDT Opened in error documented in this encounter Plan of Treatment Upcoming Encounters Date Type Department Care Team (Late st Contact Info) Description 12/01/2023 2:00 PM EDT [place] [phone] Wale Huntley MD [address] [place] [address], [address] [place] [address] documented as of this encounter Visit Diagnoses Not on filedocumented in this encounter Care Teams Golf Club Repairer Relationship Specialty Start Date End Date Munira Mac APRN [address] [place] [address] PCP - General Family Medicine 08/12/16 documented as of this encounter
--- OUTSIDE RECORDS SUMMARY | 2023-10-28 01:36 | XMS_ITS | Encounter Summary ---
Author Organization [facility] [place] [address] Care Team Providers Care Sharepoint Engineer Name Role Phone Munira Mac APRN Primary Care Provider [phone] Encounter Details Date Type Department Care Team (Latest Contact Info) Description 01/06/2018 9:45 AM EDT Office Visit Neurology at [facility] [place] [address] Mark Bowers MD [facility] [place] [address] Idiopathic peripheral neuropathy; Carpal tunnel syndrome, bilateral; Ulnar neuropathy of left upper extremity; Cervical disc disorder with radiculopathy of cervicothoracic region; Ulnar neuropathy at elbow of right upper extremity; Nutritional neuropathy; Diabetic polyneuropathy associated with diabetes mellitus due to underlying condition; Cervical spondylosis with radiculopathy Social History Tobacco [...] Sign Reading Time Taken Comments Blood Pressure 125/70 01/06/2018 9:23 AM EDT Pulse 66 01/06/2018 9:23 AM EDT Temperature - - Respiratory Rate - - Oxygen Saturation - - Inhaled Oxygen Concentration - - Weight 96.2 kg (212 lb) 01/06/2018 9:23 AM EDT Height 167.6 cm (5' 6) 01/06/2018 9:23 AM EDT r eported Body Mass Index 34.22 01/06/2018 9:23 AM EDT documented in this encounter Progress Notes * Mark Bowers MD - 01/06/2018 9:45 AM EDT Images from the original note were not included. NEUROLOGY CLINIC [facility] [place] [address] Facsimile: 01/06/2018 Patient name: Hua García Date of : 1970 Referring provider: Munira Mac APRN [address] [place] [id number] Initial Visit: 46 Y M referred for [...] shake his left UE. He was in assisted for some years. He had diabetes which [...] now. He has completed authorized PT visit. 01/06/2018: Cervical radiculopathy, peripheral entrapment neuropathies followup He couldn't tolerate LAVINIA so spine surgery was consults. He was advised to have peripheral neuropathies fixed at that time. He was seen in orthopedics and had L carpal and cubital tunnel decompression done which helped him.He says he is at a 7 from 10. Its still constant but not as intense as it used to be. He therefore feels its more his neck that may be bothering. He is not getting any therapy at this time. He has some shoulder and neck pain as well, more on theleft side. He is also having some low back issues these days. He says prior EMG was traumatic for him and wouldn't want to go through it again. Review of systems: Constitutional: No fever/chills Eyes: [...] PMHx: No past medical history on file. Past Surgical History: Procedure Laterality Date ??? PRO REVISE ULNAR NERVE AT ELBOW Left 10/09/2017 NEUROPLASTY &/OR TRANSPOSITION, ULNAR NERVE AT ELBOW (WRVU 7.26) performed by Luther Veliz MD at [facility] MAIN OR ??? PRO WRIST ARTHROSCOP, RELEASE XVERS LIG Left 10/09/2017 ENDOSCOPY WRIST W/ RELEASE TRANSVERSE CARPAL LIGAMENT (WRVU 6.39) performed by Luther Veliz MDat [facility] MAIN OR Medications: Current Outpatient Prescriptions on File Prior to Visit Medication Sig Dispense Refill ??? ranitidine (ZANTAC) 150 mg Tablet Take 1 tablet by mouth daily. ??? gabapentin (NEURONTIN) 300 mg Capsule TAKE TWO CAPSULES BY MOUTH THREE TIMES DAILY 180 capsule 5 ??? FLUoxetine (PROZAC) 20 mg Capsule Take 20 mg by mouth daily. ??? UNABLE TO FIND Pt uses [...] prior to visit. Allergies: Allergies Allergen Reactions ??? Saida Stiles Family History: Family History Problem Relation Age of Onset ??? Cancer Mother ??? Cancer Maternal Grandmother Social History: reports that he has been smoking Cigarettes. He has been smoking about 0.50 packs per day. He quit smokeless tobacco use about 5 years ago. His smokeless tobacco use included Chew. He reports that hedrinks alcohol. He reports that he does not [...] facial droop. No weakness of jaw/uvula/ palate o Reflexes - +2 Bilaterally biceps, knee and ankle. o Motor and Coordination - Normal tone, bulk strength and coordination of right and left sided muscles - Slight APB weakness on left side. o Sensory - Sensation symmetric at this time. o Skull and Spine/ Gait - Lower cervical paraspinal tenderness on the left side. - Lumbar spine tenderness + - Normal gait - Tandem: Imbalance + LABS/IMAGING: Labs GENERAL THYROID: Lab Results Component Value Date TSH 2.67 11/15/2016 Folate Lab Results Component Value Date SFOLATE 14.5 11/15/2016 ESR Lab Results Component Value Date SEDRATE 13 11/15/2016 CRP Lab Results Component Value Date CRP 12.9 (H) 11/15/2016 B12 Lab Results Component Value Date [id number] 11/15/2016 CKNo results found for: CK [...] LDLCHOL, LDLDIRECT LATASHA 65No results found for: [id number] ANTI GM1,ANTI SGPG, MAG@RESUFAST (MAGAUTOAB,SGPG,MAGWB,GM1AB)@ HEAVY METAL SCREENNo results found for: LEAD, ARSENIC METHYLMLONIC ACID Lab Results Component Value Date METHYLMAL 0.44 (H) 11/15/2016 IgA, IGG No results found for: IGA, IGG CSF PANEL Lab Results Component Value Date LYMEAB Neg 11/15/2016 PARANEOPLASTIC PANEL No results found for: PARANEOINTRP, ANNA1, ANNA2, ANNA3, AGNA1, PCA1, PCA2, PCATYPETR, AMPHIPHYSIN,[id number], STRIATMSCLAB, CACHABPQTYPE, CACHABNTYPE, ACHRBINDAB, NEUROKCHAB, NMDARECEPTOR, [id number] THROMBOSIS HOMEOCYSTEINENo results found for: HOMOCYSTEINE THROMBOSIS PANELNo results found for: ACAIGM, [id number] FACTOR V LEIDEN No components found for: [...] left sided severe neural foraminal narrowing. ASSESSMENT: 47 Y M with history of HTN, DM, [...] which he was sent for LAVINIA. He he couldn't tolerate the LAVINIA and his left sided radiculopathy symptoms persisted. Hewas seen by spine surgery and wanted the peripheral entrapment neuropathies corrected before further evaluation of spine. He has had some improvement with the CTS/ UNE release procedures. Still sympto matic more at the wrist. Has neck /shoulder/ arm tenderness on left side. IMPRESSION: 1. Bilateral CTS s/p left repair. 2. 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 S/p left repair. 3. Generalized Neuropathy DM + Nutritional 4. Cervical DJD with neural foraminal stenosis and radiculopathy. 5. Lumbar DJD PLAN/RECOMMENDATIONS: Cervical radiculopathy symptoms persists. CTS and UNE seems to have helped. Peripheral neuropathy stable on gabapentin Recommended follow up with spine surgery if no further improvement in hand symptoms. Follow up in 6 months. Mark Bowers MD Department of Neurology [facility] documented in this encounter Plan of Treatment Upcoming Encounters Date Type Department Care Team (Late st Contact Info) Description 12/01/2023 2:00 PM EDT [place] [address] Wale Huntley MD [address] [facility], [address] [place] [address] documented as of this encounter Visit Diagnoses Diagnosis Idiopathic peripheral neuropathy Unspecified hereditary and idiopathic peripheral neuropathy Carpal tunnel syndrome, bilateral Carpal tunnel syndrome Ulnar neuropathy of left upper extremity Lesion of ulnar nerve Cervical disc disorder with radiculopathy of cervicothoracic region Brachial neuritis or radiculitis nos Ulnar neuropathy at elbow of right upper extremity Nutritional neuropathy Unspecified vitamin deficiency Diabetic polyneuropathy associated with diabetes mellitus due to underlying condition Cervical spondylosis with radiculopathy Cervical spondylosis with myelopathy documented in this encounter Care Teams Sharepoint Engineer Relationship Specialty Start Date End Date Munira Mac APRN [address] [place] [address] PCP - General Family Medicine 08/12/16 documented as of this encounter
--- OUTSIDE RECORDS SUMMARY | 2023-10-28 01:36 | XMS_ITS | Encounter Summary ---
Author Organization [facility] [place] [address] Care Team Providers Care Logistics Account Manager Name Role Phone Munira Mac APRN Primary Care Provider +1 [phone] Encounter Details Date Type Department Care Team (Latest Contact Info) Description 01/05/2019 9:45 AM EDT Office Visit Neurology at [facility] [place] [phone] Mark Bowers MD [facility] [place] [address] Idiopathic peripheral neuropathy; Cervical disc disorder with radiculopathy of cervicothoracic region; Ulnar neuropathy of left upper extremity Social History Tobacco Use Types Packs/Day Years [...] Sign Reading Time Taken Comments Blood Pressure 130/75 01/05/2019 9:20 AM EDT Pulse 67 01/05/2019 9:20 AM EDT Temperature - - Respiratory Rate - - Oxygen Saturation - - Inhaled Oxygen Concentration - - Weight 91.6 kg (202 lb) 01/05/2019 9:20 AM EDT W ith shoes Height 167.6 cm (5' 6) 01/05/2019 9:20 AM EDT R eported Body Mass Index 32.6 01/05/2019 9:20 AM EDT documented in this encounter Progress Notes * Mark Bowers MD - 01/05/2019 9:45 AM EDT Images from the original note were not included. NEUROLOGY CLINIC [facility] [place] [address] Facsimile: 01/05/2019 Patient name: Hua García Date of : 1970 Referring provider: Munira Mac APRN [address] [place] [address] Initial Visit: 46 Y M referred for [...] shake his left UE. He was in half-way for some years. He had diabetes which [...] wouldn't want to go through it again. 01/05/2019: He says his neck symptoms are better His movements have improved. He is off gabapentin now. He is having back issues. He is planned to have RFA done. He had some facet joint injections done. Review of systems: Constitutional: No fever/chills Eyes: [...] 7.26) performed by Luther Veliz MD at [facility] MAIN OR ??? PRO WRIST ARTHROSCOP, RELEASE XVERS LIG Left 10/09/2017 ENDOSCOPY WRIST W/ RELEASE TRANSVERSE CARPAL LIGAMENT (WRVU 6.39) performed by Luther Veliz MDat [facility] MAIN OR Medications: Current Outpatient Medications on File Prior to Visit Medication Sig Dispense Refill ??? ranitidine (ZANTAC) 150 mg Tablet Take 1 tablet by mouth daily. ??? FLUoxetine (PROZAC) 20 mg Capsule Take 20 mg by mouth 2 times daily. ??? aspirin 81 mg Tablet, Delayed Release [...] Tablet Take 10 mg by mouth nightly. ??? CHOLECALCIFEROL, VITAMIN D3, 2,000 unit Capsule Take 2,000 Units by mouth daily. ??? bisacodyl (DULCOLAX) 5 mg Tablet, Delayed Release (E.C.) Take 5 mg by mouth as needed. ??? gabapentin (NEURONTIN) 300 mg Capsule TAKE TWO CAPSULES BY MOUTH THREE TIMES DAILY (Patient nottaking: Reported on 01/05/2019) 180 capsule 5 ??? UNABLE TO FIND Pt uses Med Name: Pt uses ONE touchmeter and strips. Also takes multi dupplements:ABC plus, A&D,KLB6 No current facility-administered medications on file prior to visit. Allergies: Allergies Allergen Reactions ??? Wool Hives Family History: Family History Problem Relation Age of Onset ??? Cancer Mother ??? Cancer Maternal Grandmother Social History: reports that he has been smoking cigarettes. He has been smoking about 1.00 pack per day. He quit smokeless tobacco use about 6 years ago. His smokeless tobacco use included chew. He reports that he drinks alcohol. He reports that he has current or past drug history. Drug: Marijuana. No flowsheet data found. Vitals: Ht 167.6 cm (5' 6) Comment: Reported Wt 91.6 kg (202 lb) Comment: With shoes BMI 32.60 kg/m?? Physical Examination: General: alert, NAD. High BMI Gastrointestinal: Abdomen distended soft, nontender Extremity: no [...] and left sided muscles o Sensory - Symmetric sensations o Skull and Spine/ Gait - Normal gait LABS/IMAGING: Labs GENERAL THYROID: Lab Results Component Value Date TSH 2.67 11/15/2016 Folate Lab Results Component Value Date SFOLATE 14.5 11/15/2016 ESR Lab Results Component Value Date SEDRATE 13 11/15/2016 CRP Lab Results Component Value Date CRP 12.9 (H) 11/15/2016 B12 Lab Results Component Value Date [id number] 333 11/15/2016 CKNo results found for: CK [...] LDLCHOL, LDLDIRECT LATASHA 65No results found for: UVS72FH ANTI GM1,ANTI SGPG, MAG@RESUFAST (MAGAUTOAB,SGPG,MAGWB,GM1AB)@ HEAVY METAL SCREENNo results found for: LEAD, ARSENIC METHYLMLONIC ACID Lab Results Component Value Date METHYLMAL 0.44 (H) 11/15/2016 IgA, IGG No results found for: IGA, IGG CSF PANEL Lab Results Component Value Date LYMEAB Neg 11/15/2016 PARANEOPLASTIC PANEL No results found for: PARANEOINTRP, ANNA1, ANNA2, ANNA3, AGNA1, PCA1, PCA2, PCATYPETR, AMPHIPHYSIN,GGGB1GDG, STRIATMSCLAB, CACHABPQTYPE, CACHABNTYPE, ACHRBINDAB, NEUROKCHAB, NMDARECEPTOR, RNJ96DC THROMBOSIS HOMEOCYSTEINENo results found for: HOMOCYSTEINE THROMBOSIS PANELNo results found for: ACAIGM, V8EVSPDIYCV FACTOR V LEIDEN No components found for: [...] improvement with the CTS/ UNE release procedures. Overall he has improved last seen and is now off of gabapentin. IMPRESSION: 1. Bilateral CTS s/p left repair. 2. 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 S/p left repair. 3. Generalized Neuropathy DM + Nutritional 4. Cervical DJD with neural foraminal stenosis and radiculopathy. 5. Lumbar DJD PLAN/RECOMMENDATIONS: Symptomatically improved since last seen. Back issues being managed through pain clinic Off of gabapentin at this time Continue current measures. Follow up as needed from now on Mark Bowers MD Department of Neurology [facility] documented in this encounter Plan of Treatment Upcoming Encounters Date Type Department Care Team (Late st Contact Info) Description 12/01/2023 2:00 PM EDT [place] [address] Wale Huntley MD [address] [place] [address], [address] [place] [address] documented as of this encounter Visit Diagnoses Diagnosis Idiopathic peripheral neuropathy Unspecified hereditary and idiopathic peripheral neuropathy Cervical disc disorder with radiculopathy of cervicothoracic region Brachial neuritis or radiculitis nos Ulnar neuropathy of left upper extremity Lesion of ulnar nerve documented in this encounter Care Teams Logistics Account Manager Relationship Specialty Start Date End Date Munira Mac APRN [address] [place] [address] PCP - General Family Medicine 08/12/16 documented as of this encounter
--- OUTSIDE RECORDS SUMMARY | 2023-10-28 01:36 | XMS_ITS | Encounter Summary ---
Author Organization [facility] Address [facility] [place] [address] Care Team Providers Care Children'S Choir Director Name Role Phone Munira Mac APRN Primary Care Provider +1 [phone] Reason for Visit * Reason Comments Follow Up Surgery s/p L CTR & cubital tunnel release DOS: 10/09/17 Encounter Details Date Type Department Care Team (Late st Contact Info) Description 10/22/2017 11:45 AM EDT Office [place] [address] Luther Veliz MD [facility] [place] [address] Cubital tunnel syndrome on left; Carpal tunnel syndrome on left Social History Tobacco [...] Sign Reading Time Taken Comments Blood Pressure 117/70 10/22/2017 12:06 PM EDT Pulse 64 10/22/2017 12:06 PM EDT Temperature - - Respiratory Rate - - Oxygen Saturation - - Inhaled Oxygen Concentration - - Weight 98.9 kg (218 lb) 10/22/2017 12:06 PM EDT stated Height 167.6 cm (5' 6) 10/22/2017 12:06 PM EDT stated Body Mass Index 35.19 10/22/2017 12:06 PM EDT documented in this encounter Progress Notes * Luther Veliz MD - 10/22/2017 11:45 AM EDT Hua García his is being seen following endoscopic left carpal tunnel decompression as well as in situ left cubital tunnel decompression. He notes no significant improvement in his neurogenic symptoms but he does note that he has been able to return to near full use of his left arm. His incision sites are now well-healed. Sutures were removed and Steri-Strips were applied. He will progressuse of his hands as tolerated. He is being scheduled for an appointment to see a auto inspection specialist to see if there may be a cervical source for his symptoms but I told not to give up hope on further recovery of his peripheral ulnar and median neuropathies. I will see him for this issue on an as needed basis moving forward. documented in this encounter Plan of Treatment Upcoming Encounters Date Type Department Care Team (Late st Contact Info) Description 12/01/2023 2:00 PM EDT Office [place] [address] Wale Huntley MD [address] [place] [address], [address] [place] [address] documented as of this encounter Visit Diagnoses Diagnosis Cubital tunnel syndrome on left Lesion of ulnar nerve Carpal tunnel syndrome on left Carpal tunnel syndrome documented in this encounter Care Teams Children'S Choir Director Relationship Specialty Start Date End Date Munira Mac APRN [address] [place] [address] PCP - General Family Medicine 08/12/16 documented as of this encounter
--- OUTSIDE RECORDS SUMMARY | 2023-10-28 01:36 | XMS_ITS | Encounter Summary ---
Author Organization [facility] Address [facility] [place] [address] Care Team Providers Care Food Tester Name Role Phone Munira Mac APRN Primary Care Provider +1 [phone] Encounter Details Date Type Department Care Team (Late st Contact Info) Description 08/05/2017 Telephone [place] [address] Luther Veliz MD [facility] [place] [address] Social History Tobacco Use Types Packs/Day Years [...] encounter Miscellaneous Notes * Telephone Encounter - Dorys Kay - 08/29/2017 9:38 AM EDT I called and left a message for patient to call [phone] directly and schedule surgery with Dr. veliz . * Telephone Encounter - Laly Patricia - 08/05/2017 11:23 AM EDT Left message for patient to call us back. The [facility] is requesting that patient have an Anesthesia Consult to decide whether he is fit for the [facility] or the [facility]. Left our direct number. Need to make an appointment with Anesthesia. documented in this encounter Plan of Treatment Upcoming Encounters Date Type Department Care Team ([facility] st Contact Info) Description 12/01/2023 2:00 PM EDT Office [place] [address] Wale Huntley MD [address] [facility], [address] [place] [address] documented as of this encounter Visit Diagnoses Not on filedocumented in this encounter Care Teams Food Tester Relationship Specialty Start Date End Date Munira Mac APRN [address] [place] [address] PCP - General Family Medicine 08/12/16 documented as of this encounter
--- OUTSIDE RECORDS SUMMARY | 2023-10-28 01:36 | XMS_ITS | Encounter Summary ---
Author Organization [facility] [place] [address] Care Team Providers Care Hat Body Inspector Name Role Phone Munira Mac APRN Primary Care Provider [phone] [phone] Encounter Details Date Type Department Care Team (Late st Contact Info) Description 12/15/2018 Telephone [place] [phone] Renee Russo RN Social History Tobacco Use Types Packs/Day [...] encounter Miscellaneous Notes * Telephone Encounter - Renee Russo RN - 12/15/2018 4:55 PM EDT [facility] Post-Procedure Phone Note Patient: Hua García [id number] Post-procedure phone call from patient to report his response to the lumbar medial branch block procedure performed on 12/09/18 in the Pain Management Center by Susie Samuels MD. This is patient's : first medial branch block. Patient reports that after the procedure he experienced: _x_ Patient reported post-block numeric pain scale: 0 /10 (average pain since procedure) _x_ Post-procedure pain has been reduced by 90%. (> 80% Medicare/MVP/Medicaid) _x_ If relief > 80% with ability to perform painful maneuvers; schedule 2nd MBB: yes _x_ __ Pain relief: moderate moderate x__If pain is reduced, it lasted: Yes 4 hours or greater r Based on the information provided above and after discussion with the patient, the following actions will be taken: _x_ __ Patient will be contacted by service secretary in Pain Management Center as described above. _x_ Patient was given general information about the procedure and all their questions were answeredto their satisfaction. __ Patient on anticoagulant medication: No Patient has pacemaker/defibrillator: No Patient has the appropriate phone number and understands that he may contact the Pain Management Center at any time with questions or concerns. Renee Russo, RN documented in this encounter Plan of Treatment Upcoming Encounters Date Type Department Care Team (Late st Contact Info) Description 12/01/2023 2:00 PM EDT [place] [address] Wale Huntley MD [address] [place] [address], [address] [place] [address] documented as of this encounter Visit Diagnoses Not on filedocumented in this encounter Care Teams Hat Body Inspector Relationship Specialty Start Date End Date Munira Mac APRN [address] [place] [address] PCP - General Family Medicine 08/12/16 documented as of this encounter
--- OUTSIDE RECORDS SUMMARY | 2023-10-28 01:36 | XMS_ITS | Encounter Summary ---
Author Organization [facility] Address [facility] [place] [address] Care Team Providers Care Top Carrier Name Role Phone Munira Mac APRN Primary Care Provider [phone] [phone] Reason for Visit * Auth/Cert Specialty Diagnoses [...] Expiration Date Visits Re quested Visits Authorized [id number] 1 1 Encounter Details Date Type Department Care Team (Late st Contact Info) Description 12/09/2018 10:15 AM EDT - 12/09/2018 11:00 AM EDT [place] [address] Susie Samuels MD [facility] [place] [address] INJECTION, FACET JOINT, W\FLUORO, LUMBAR, SINGLE (WRVU [...] Post -Procedure Pain Log Patient: Hua García [id number] It is important for you to keep [...] 7.26) performed by Luther Veliz MD at [facility] MAIN OR ??? 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 The patient received written instructions as [...] for the entire procedure. Susie Samuels MD Sourcing Associate of Anesthesiology [facility] [address] [address] / [facility] CC: Munira Mac, MARK [email or web address] documented in this encounter Plan of Treatment Upcoming Encounters Date Type Department Care Team ([facility] st Contact Info) Description 12/01/2023 2:00 PM EDT [place] [address] Wale Huntley MD [address] [place] [address], [address] [place] [address] Scheduled Orders Name Type Priority Associated Diagnoses [...] MAR Action Action Date Dose Rate Site BUpivacaine (PF) (MARCAINE) 0.5 % (5 mg/mL) injection ONCE PRN, Starting on Fri12/09/18 at 1047, Until Fri12/09/18 at 1257, Intra-Operative (Intra-Procedure), Routine Given 12/09/2018 10:47 AM EDT 3 mLs glycopyrrolate (ROBINUL) injection ONCE PRN, Starting on Fri12/09/18 at 1035, Until Fri12/09/18 at 1257, Intra-Operative (Intra-Procedure), Routine Given 12/09/2018 10:38 AM EDT 0.1 mg Given 12/09/2018 10:35 AM EDT 0.3 mg documented in this encounter Active and Recently Administered Medications Times are shown in EDT. PRN Medication Order 12/07/2018 12/08/2018 12/09/2018 BUpivacaine (PF) (MARCAINE) 0.5 % (5 mg/mL) injection (CANCELED) ONCE PRN, Starting on Fri12/09/18 at 1047, Until Fri12/09/18 at 1257, Intra-Operative (Intra-Procedure), Routine 1047 (Given - Provid er: Jori Bautista MD) glycopyrrolate (ROBINUL) injection (CANCELED) ONCE PRN, Starting on Fri12/09/18 at 1035, Until Fri12/09/18 at 1257, Intra-Operative (Intra-Procedure), Routine 1035 (Given - Provid er: Jun Cole RN)1038 (Given - Provider: Jun Cole RN) documented in this encounter Care Teams Top Carrier Relationship Specialty Start Date End Date Munira Mac APRN [address] [place] [address] PCP - General Family Medicine 08/12/16 documented as of this encounter
--- OUTSIDE RECORDS SUMMARY | 2023-10-28 01:36 | XMS_ITS | Encounter Summary ---
Author Organization [facility] [place] [address] Care Team Providers Care Shipyard Helper Name Role Phone Munira Mac APRN Primary Care Provider [phone] [phone] Reason for Visit * Reason Comments Medication Refill Encounter Details Date Type Department Care Team ([facility] Contact Info) Description 05/06/2018 [place] [phone] Margarito Hernandez III, MD [facility] [place] [address] Social History Tobacco Use Types Packs/Day Years [...] Upcoming Encounters Date Type Department Care Team ([facility] Contact Info) Description 12/01/2023 2:00 PM EDT Office [place] [phone] Wale Huntley MD [address] [place] [address], [address] [place] [address] documented as of this encounter Visit Diagnoses Not on filedocumented in this encounter Care Teams Shipyard Helper Relationship Specialty Start Date End Date Munira Mac APRN [address] [place] [address] PCP - General Family Medicine 08/12/16 documented as of this encounter
--- OUTSIDE RECORDS SUMMARY | 2023-10-28 01:36 | XMS_ITS | Encounter Summary ---
Author Organization [facility] [place] [address] Care Team Providers Care Driver Salesman Name Role Phone Munira Mac APRN Primary Care Provider +1 [phone] Encounter Details Date Type Department Care Team (Late st Contact Info) Description 02/09/2019 Telephone [place] [address] Lauren Wilson RN Social History Tobacco Use Types Packs/Day [...] Telephone Encounter - Lauren Wilson RN - 02/09/2019 10:39 AM EDT Pain Management Center Post-Procedure Phone Note Patient: Hua García [id number] Post-procedure phone call from patient to report his response to the bilateral lumbar medial branchblock procedure performed on 02/08/19 in the Pain Management Center by Susie Samuels MD. This is patient's : second medial branch block. Patient reports that after the procedure he experienced: _X_ Patient reported post-block numeric pain scale: 4 /10 (average pain since procedure) _X_ Post-procedure pain has been reduced by 85%. (> 80% Medicare/MVP/Medicaid) _X_ Pain relief: moderate If pain is reduced, it lasted: Yes 4 hours or greater Based on the information provided above and after discussion with the patient, the following actions will be taken: _X_ Patient meets criteria for radiofrequency treatment and would like to proceed with a bilateral lumbar spine at L3, L4 and L5-DR Radiofrequency procedure with Susie Samuels MD. _X_ Patient will be contacted by sales secretary in Pain Management Center as described above. _X_ Patient was given general information about the procedure and all their questions were answeredto their satisfaction. Patient on anticoagulant medication: No Patient has pacemaker/defibrillator: No Patient has the appropriate phone number and understands that he may contact the Pain Management Center at any time with questions or concerns. LAUREN WILSON RN documented in this encounter Plan of Treatment Upcoming Encounters Date Type Department Care Team (Late st Contact Info) Description 12/01/2023 2:00 PM EDT [place] [address] Wale Huntley MD [address] [place] [address], [address] [place] [address] documented as of this encounter Visit Diagnoses Not on filedocumented in this encounter Care Teams Driver Salesman Relationship Specialty Start Date End Date Munira Mac APRN [address] [place] [address] PCP - General Family Medicine 08/12/16 documented as of this encounter
--- OUTSIDE RECORDS SUMMARY | 2023-10-28 01:36 | XMS_ITS | Encounter Summary ---
Author Organization [facility] [place] [address] Care Team Providers Care Registrar [employer] Name Role Phone Munira Mac APRN Primary Care Provider [phone] [phone] Reason for Visit * Auth/Cert Specialty Diagnoses [...] Expiration Date Visits Re quested Visits Authorized [id number] 1 1 Encounter Details Date Type Department Care Team (Latest Contact Info) Description 02/08/2019 12:58 PM EDT - 02/08/2019 2:49 PM EDT Hospital Encounter [place] [address] Susie Samuels MD [facility] [place] [place] [address] Lumbosacral spondylosis without myelopathy Discharge Disposition: Home Social History Tobacco Use [...] Post -Procedure Pain Log Patient: Hua García [id number] It is important for you to keep [...] 7.26) performed by Luther Veliz MD at [facility] MAIN OR ??? PRO WRIST ARTHROSCOP, RELEASE XVERS LIG Left 10/09/2017 ENDOSCOPY WRIST W/ RELEASE TRANSVERSE CARPAL LIGAMENT (WRVU 6.39) performed by Luther Veliz MDat [facility] MAIN OR ALLERGIES: Wool MEDICATIONS: No [...] file Gets together: Not on file Attends druze service: Not on file Active member of [...] Operative Note Patient Name: Hua García : [id number] MR#: [id number] Case Date: 02/08/2019 Surgeon: Surgeon(s) and Role: [...] Hypermobility or pseudoarthrosis no Pre-testing pain score: 9/10 Hua García has been referred to the [...] plans and appointments were discussed with Hua Monson García. Mr. 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 The patient received written instructions as [...] Samuels MD ABPM-subspecialty board certification in Pain Promotions ExecutiveEpilepsy Physician Department of Anesthesiology/Section of Pain Medicine [facility] CC: Munira Mac APRN [email or web address] documented in this encounter Plan of Treatment Upcoming Encounters Date Type Department Care Team (Late st Contact Info) Description 12/01/2023 2:00 PM EDT [place] [address] Wale Huntley MD [address] [place] [address], [address] [place] [address] documented as of this encounter Visit Diagnoses Diagnosis Lumbosacral spondylosis without myelopathy Lumbosacral spondylosis without myelopathy documented in this encounter Active and Recently [...] LMBB) documented in this encounter Care Teams Registrar College [employer] Relationship Specialty Start Date End Date Munira Mac APRN [address] [place] [address] PCP - General Family Medicine 08/12/16 documented as of this encounter
--- OUTSIDE RECORDS SUMMARY | 2023-10-28 01:36 | XMS_ITS | Encounter Summary ---
Author Organization [facility] Address [facility] [place] [address] Care Team Providers Care Technical Service Engineer Name Role Phone Munira Mac APRN Primary Care Provider [phone] [phone] Reason for Visit * Reason Comments Neck Pain Bilateral Arm Pain * Consultation (Routine) - Closed Specialty Diagnoses / Procedures Referred By Contac t Referred To Contact Orthopaedics Diagnoses cervical radiculopathy left, not responding to LAVINIA/ MRI 12/11/16 in eD Mark Bowers MD [facility] [place] [address] [facility] [address] [place] [address] Referral ID Status Reason Start Date Expiration Date V isits Requested Visits Authorized [id number] Closed Consult, Test & Treat 05/29/2017 05/29/2018 1 1 Encounter Details Date Type Department Care Team (Latest Contact Info) Description 06/05/2017 11:20 AM EST Office [place] [address] Sidney Ko MD [facility] [place] [address] Osteoarthritis of spine with radiculopathy, cervical region Social History Tobacco Use Types Packs/Day [...] as of this encounter Progress Notes * Sidney Ko MD - 06/05/2017 11:20 AM EST Images from the original note were not included. Sidney Ko MD MS FAOA Department of Orthopaedics [facility] June 05, 2017 Mr. García is a 47-year-old [id number] gentleman seen today in the spine center in consultation from Dr. Bowers. He seen and evaluated for about a year history of pain in the neck left shoulder pain rating down with tingling in all digits of the left hand. Symptoms have been ongoing since [facility] release from [facility]. He is undergone physical therapy with some overall improvement in his symptoms. These of also improved with gabapentin. Anti-inflammatory medications are also helpful. He has several other musculoskeletal complaints his neck pain being the primary one at this time. He has no focal weakness. He has no problems with gait balance of fine motor control. Night pain is generally not a problem. Symptoms are exacerbated with cervical extension and left lateral rotation. His review of systems is negative for GI, , or constitutional symptoms. He has a history of PTSD, marginally controlled diabetes, sleep apnea, elevated lipids, hypertension, low back pain, hypothyroidism, depression, anxiety, and others. Is no medication allergies. He is unemployed. Height is 5 feet 6 inches, weight 240 pounds, body mass index 38.73. Neck pain over the past week rated as a 7. This is a pleasant overweight gentleman. He moves about the office with a normal gait. He can toe walk heel walk and tandem gait without any problems. His cervical spine is normal in appearance. He has full flexion, 59% of normal extension which likely exacerbates his neck pain and full pain-free range of motion and rotation. Spurling's maneuver mildly reproduces left shoulder pain. His upper extremity motor exam is normal sensory function is diminished globally in the left hand. Reflexes are normal in the upper and lower extremities with negative Chi reflex is negative clonus and negative Babinski's. 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 These were performed by Dr. Bowers. Cervical MRI is reviewed from this institution dated 12/11/2016. This demonstrates multilevel cervical spondylosis with significant foraminal narrowing particularly at C5-6 C6-7 C7-T1 and to a lesser degree at C4-C5. Impression: Neck pain left shoulder and arm pain numbness and tingling, multifactorial in origin inall likelihood. He clearly has a positive Tinel at the elbow and at the wrist and EMG studies suggesting peripheral nerve entrapment consistent with these physical findings. Components of his symptoms may be cervical radiculitis but given the multilevel degenerative nature of his spine surgical options likely limited to multilevel decompression anteriorly with multilevel anterior cervical discectomy and fusion which may leave him with a C4-T1 fusion not at all optimal for gentleman at age 47. Recommendation: I reviewed these findings including the imaging study findings with the patient. I suggested continuing with the workup for his peripheral nerve entrapment syndromes and interventionswhich may minimize his symptoms from those findings. I would be hopeful that his symptoms would improve enough that overall he be comfortable and minimize the chance of a multilevel cervical fusion. This was all reviewed with him in detail. No further surgical Spine Center follow-up indicated at this time. [email or web address] voice recognition used for this diatation and I apologize for any mis-wording. Spine Center Response Trends Patient-reported scores: myD-H Spine Questionnaire responses 06/05/2017 Neck Disability Index (Range: 0-100) 27.5 (Mild disability) PROMIS-10 Physical Health Score 34.9 PROMIS-10 Mental Health Score 33.8 Some recent data might be hidden Sidney Ko MD MS FAOA Department of Orthopaedic Surgery [facility] [address] [employer] Straightener of Orthopaedic Surgery [facility] [employer] [facility] [phone] [email or web address] documented in this encounter Plan of Treatment Upcoming Encounters Date Type Department Care Team (Late st Contact Info) Description 12/01/2023 2:00 PM EDT Office [place] [address] Wale Huntley MD [address] [facility] [address], [address] [place] [address] Scheduled Referrals Name Type Priority Associated Diagnoses Orde r Schedule Referral to Spine Center Outpatient Referral Routine Cervical disc disorder with radiculopathy of cervicothoracic region Ordered: 05/29/2017 documented as of this encounter Visit Diagnoses Diagnosis Osteoarthritis of spine with radiculopathy, cervical region documented in this encounter Care Teams Technical Service Engineer Relationship Specialty Start Date End Date Munira Mac, MARK [address] [place] [id number] PCP - General Family Medicine 08/12/16 documented as of this encounter
--- OUTSIDE RECORDS SUMMARY | 2023-10-28 01:36 | XMS_ITS | Encounter Summary ---
Author Organization [facility] Address [facility] [place] [address] Care Team Providers Care Director Of Dementia Operations Name Role Phone Munira Mac APRN Primary Care Provider [phone] [phone] Reason for Referral * Diagnostic Test (Routine) - Closed Specialty Diagnoses / Procedures Referred By Contac t Referred To Contact Radiology Diagnoses Idiopathic peripheral neuropathy Carpal tunnel syndrome, bilateral Ulnar neuropathy at elbow of left upper extremity Ulnar neuropathy at elbow of right upper extremity Procedures MRI Cervical Spine wo Contrast (Generic) MRI Cervical Spine wwo Contrast Mark Bowers MD [facility] [place] [address] [place] [address] Referral ID Status Reason Start Date Expiration Date V isits Requested Visits Authorized Closed Specialty Service Requested 11/29/2016 02/27/2017 2 2 Reason for Visit * Diagnostic Test (Routine) - Closed Specialty Diagnoses / Procedures Referred By Contac t Referred To Contact Radiology Diagnoses Idiopathic peripheral neuropathy Carpal tunnel syndrome, bilateral Ulnar neuropathy at elbow of left upper extremity Ulnar neuropathy at elbow of right upper extremity Procedures MRI Cervical Spine wo Contrast (Generic) MRI Cervical Spine wwo Contrast Mark Bowers MD [facility] [place] [address] [place] [address] Referral ID Status Reason Start Date Expiration Date V isits Requested Visits Authorized Closed Specialty Service Requested 11/29/2016 02/27/2017 2 2 Encounter Details Date Type Department Care Team (Latest Contact Info) Description 12/11/2016 12:33 PM EDT Hospital Encounter MRI at [facility] [place] [address] Mark Bowers MD [facility] [place] [address] Idiopathic peripheral neuropathy; Carpal tunnel syndrome, bilateral; Ulnar neuropathy at elbow of left upper extremity; Ulnar neuropathy at elbow of right upper extremity Discharge Disposition: Home Social History Tobacco Use [...] 11/15/2016 12/25/2016 documented as of this encounter Progress Notes * Mark Bowers MD - 12/11/2016 12:33 PM EDT Patient was called and informed of the results. Pain clinic referral for consideration of LAVINIA * Michelle Corrales RN - 12/05/2016 2:35 PM EDT MRI PRE-SEDATION ASSESSMENT NOTE NAME: Hua García AGE: 46 y.o. : 1970 [address] [facility] [address] Male [phone] (home) No relevant phone numbers on file. Munira Mac APRN No primary care provider on file. No Known Allergies Date/Time of call: December 05, 2016/2:36 PM/ PREVIOUS MRI SCAN? None noted HEIGHT: 5'6 WEIGHT: 250 lb SCHEDULED SCAN: MRI Cervical Spine wo Contrast (40 min, head first, supine) scanner # 3 SUBJECTIVE: Pt claustrophobic CAN YOU LAY FLAT? yes AIRWAY ISSUES? CPAP at night DO YOU HAVE ANY INVOLUNTARY MOVEMENTS? none DO YOU HAVE ANY PAIN? yes DO YOU TAKE PAIN MED ON A DAILY BASIS? Med list includes gabapentin, mobic ASSESSMENT: Appropriate for PO sedation PLAN: Valium per protocol Guidelines for MRI Pre-Procedures Laboratory Studies: GFR Date of lab draw 1. Creatinine studies (GFR level needed) within 90 days of scan ??? 70 yo or older if they are getting contrast ??? 50 years and older if they are diabetic and getting contrast ( XXX ) You must have a food mobile driver present when you check in. This patient has been informed that they require a food mobile driver to drive them home after this procedure. In the absence of a food mobile driver, IR will not be able to sedate for your scan. Pt verbalized understanding of these instructions during the pre-procedure education via phone. Yes CM Cuero of food mobile driver: [employer] Phone number [phone], Renee Kyle PRIOR SCAN DATE/S SEDATION TYPE SUCCESSFUL 12/11/16 MRI c-spine wwo contrast Valium 5 mg PO x 2 Yes, but lots of movement and still very anxious. Revised 04/28/15 documented in this encounter Plan of Treatment Upcoming Encounters Date Type Department Care Team ([facility] st Contact Info) Description 12/01/2023 2:00 PM EDT [place] [address] Wale Huntley MD [address] [place] [address], [address] [place] [address] documented as of this encounter Procedures Procedure [...] documented in this encounter Visit Diagnoses Diagnosis Idiopathic peripheral neuropathy Unspecified hereditary and idiopathic peripheral neuropathy Carpal tunnel syndrome, bilateral Carpal tunnel syndrome Ulnar neuropathy at elbow of left upper extremity Ulnar neuropathy at elbow of right upper extremity documented in this encounter Administered Medications Inactive Administered Medications - up to 3 most recent administrations Medication Order MAR Action Action Date Dose Rate Site diaZEPam (VALIUM) tablet 5-10 mg 5-10 mg, Oral, ONCE PRN, 2 doses, Starting on Fri12/11/16 at 1253, Until Fri12/11/16 at 1340, Anxiety, Angio/IR (Day of Procedure), Routine Given 12/11/2016 1:40 PM EDT 5 mg Given 12/11/2016 1:11 PM EDT 5 mg documented in this encounter Care Teams Director Of Dementia Operations Relationship Specialty Start Date End Date Munira Mac APRN [address] [place] [address] PCP - General Family Medicine 08/12/16 documented as of this encounter
--- OUTSIDE RECORDS SUMMARY | 2023-10-28 01:36 | XMS_ITS | Encounter Summary ---
Author Organization [facility] [place] [address] Care Team Providers Care Functional Tester Name Role Phone Munira Mac APRN Primary Care Provider [phone] [phone] Reason for Visit * Reason Comments Medication Refill Encounter Details Date Type Department Care Team ([facility] Contact Info) Description 04/07/2018 [place] [phone] Mark Bowers MD [facility] [place] [address] Social History Tobacco Use Types Packs/Day Years [...] Upcoming Encounters Date Type Department Care Team ([facility] Contact Info) Description 12/01/2023 2:00 PM EDT [place] [address] Wale Huntley MD [address] [place] [address], [address] [place] [address] documented as of this encounter Visit Diagnoses Not on filedocumented in this encounter Care Teams Functional Tester Relationship Specialty Start Date End Date Munira Mac APRN [address] [place] [address] PCP - General Family Medicine 08/12/16 documented as of this encounter
--- OUTSIDE RECORDS SUMMARY | 2023-10-28 01:37 | XMS_ITS | Encounter Summary ---
[place] [address] Care Team Providers Care Customer Contact Representative Name Role Phone Munira Mac APRN Primary Care Provider [phone] -[phone] Encounter Details Date Type Department Care Team (Late Contact Info) Description 11/25/2016 Orders [place] [address] Erin Sutton Social History Tobacco Use Types Packs/Day Years [...] 2:00 PM EDT [place] [address] Wale Huntley MD [address] [place] [address], [address] [place] [address] documented as of this encounter Visit Diagnoses Not on filedocumented in this encounter Care Teams Customer Contact Representative Relationship Specialty Start Date End Date Munira Mac APRN [address] [place] [address] PCP - General Family Medicine 08/12/16 documented as of this encounter
--- OUTSIDE RECORDS SUMMARY | 2023-10-28 01:37 | XMS_ITS | Encounter Summary ---
Author Organization [facility] [place] [address] Care Team Providers Care Auto Brake Mechanic Name Role Phone Munira Mac APRN Primary Care Provider [phone] [phone] Encounter Details Date Type Department Care Team ([facility] Contact Info) Description 11/15/2016 External [place] [phone] Mark Bowers MD [facility] [place] [address] Social History Tobacco Use Types Packs/Day Years [...] Upcoming Encounters Date Type Department Care Team ([facility] Contact Info) Description 12/01/2023 2:00 PM EDT [place] [address] Wale Huntley MD [address] [place] [address], [address] [place] [address] documented as of this encounter Procedures Procedure Name Priority Date/Time Associated Diagnosis Comments EMG SCAN Routine 11/15/2016 documented in this encounter Results * Scan Doc: EMG (11/15/2016) Mark Bowers MD MEDIA MGR SCAN EXT O RDR/RSLT documented in this encounter Visit Diagnoses Not on filedocumented in this encounter Care Teams Auto Brake Mechanic Relationship Specialty Start Date End Date Munira Mac APRN [address] [place] [address] PCP - General Family Medicine 08/12/16 documented as of this encounter
--- OUTSIDE RECORDS SUMMARY | 2023-10-28 01:37 | XMS_ITS | Encounter Summary ---
Author Organization [facility] [place] [address] Care Team Providers Care Candy Spreader Name Role Phone Munira Mac APRN Primary Care Provider [phone] Reason for Referral * Diagnostic Test (Routine) - Closed Specialty Diagnoses / Procedures Referred By Kwaku fernandez Referred To Contact Radiology Diagnoses Idiopathic peripheral neuropathy Carpal tunnel syndrome, bilateral Ulnar neuropathy at elbow of left upper extremity Ulnar neuropathy at elbow of right upper extremity Procedures MRI Cervical Spine wo Contrast (Generic) MRI Cervical Spine wwo Contrast [place] [address] [place] [address] Referral ID Status Reason Start Date Expiration Date V isits Requested Visits Authorized [id number] Closed Specialty Service Requested 11/29/2016 02/27/2017 2 2 Reason for Visit * Consultation (Routine) - Closed Specialty Diagnoses / Procedures Referred By Kwaku fernandez Referred To Contact Neurology Diagnoses chronic and worsening paresthesias of left arm Munira Mac APRN [address] [place] [address] [facility] [address] [place] [phone] Referral ID Status Reason Start Date Expiration Date V isits Requested Visits Authorized [id number] Closed Connection Center 09/23/2016 09/23/2017 1 1 Encounter Details Date Type Department Care Team (Latest Contact Info) Description 11/15/2016 11:00 AM EDT Procedure visit Neurology at [facility] [place] [address] Debbie Iglesias MD [facility] [place] [address] Idiopathic peripheral neuropathy; Carpal tunnel syndrome, bilateral; Ulnar neuropathy at elbow of left upper extremity; Ulnar neuropathy at elbow of right upper extremity Social History Tobacco Use Types [...] Sign Reading Time Taken Comments Blood Pressure 140/73 11/15/2016 11:01 AM EDT Pulse 66 11/15/2016 11:01 AM EDT Temperature - - Respiratory Rate - - Oxygen Saturation - - Inhaled Oxygen Concentration - - Weight 113.4 kg (250 lb) 11/15/2016 11:01 AM EDT Height 167.6 cm (5' 6) 11/15/2016 11:01 AM EDT reported Body Mass Index 40.35 11/15/2016 11:01 AM EDT documented in this encounter Progress Notes * Debbie Iglesias MD - 11/15/2016 11:00 AM EDT NEUROLOGY CLINIC [facility] [place] [address] Facsimile: 11/15/2016 Patient name: Hua García Date of : 1970 Referring provider: Munira Mac APRN [facility] [address] [place] [address] HISTORY OF PRESENTING COMPLAINTS: 46 Y M referred for evaluation of [...] shake his left UE. He was in nursing home for some years. He had diabetes which was found to be the case again after he was discharged in December. PMH: DM2, HTN, PTSD. Anxiety. Social: He is currently homeless . Alcohol rare. No smoking x 4 years. Family: No family history of neurologic illness. Review of systems: Constitutional: No fever/chills Eyes: [...] History reviewed. No pertinent surgical history. Medications: No current outpatient prescriptions on file prior to visit. No current facility-administered medications on file prior [...] illicit drugs. No flowsheet data found. Vitals: Ht 167.6 cm (5' 6) Comment: reported Wt (!) 113.4 kg (250 lb) BMI 40.35 kg/m2 Physical Examination: General: alert, NAD. High [...] Tandem: Imbalance + LABS/IMAGING: Labs GENERAL THYROID: No results found for: TSH, L4TTGAQ, FREET4, TT4, THYROIDAB, THGAB FolateNo results found for: SFOLATE ESRNo results found for: SEDRATE CRPNo results found for: CRP B12No results found for: [id number] CKNo results found for: CK Angiotensin ConvertaseNo results found for: KRISHAN INFECTIONS HIVNo results found for: HIV12 HEPATITIS PANELNo results found for: HAV, HEPBSAB, HBEAG, HEPBSAG, HEPCAB AUTOIMMUNE PANEL ANANo results found for: LASHONDA DSDNANo results found for: DNAABDS Sherrill results [...] BETA 2 MICROGLOBULINNo results found for: B2MG No results found for: TPROTEINPEP, ALBELECT, ALPHA1, ALPHA2, GAMMAGLOB, APB1 CORTISOLNo results found for: CORTISOL LDH No results found for: LDH NUTRITIONAL VITAMIN DNo results found for: 25OHVITD PRE ALBUMINNo results found for: PREALBUMIN FERRITINNo results found for: IRON COPPERNo results found for: COPPER PERIPHERAL NEUROPATHY HEMOGLOBIN A1CNo results found for: HA1C LIPID PROFILENo results found for: CHLPL, HDL, CHOLHDL, TRIG, LDLCHOL, LDLDIRECT LATASHA 65No results found for: IZZ13EA ANTI GM1,ANTI SGPG, MAG@RESUFAST (MAGAUTOAB,SGPG,MAGWB,GM1AB)@ HEAVY METAL SCREENNo results found for: LEAD, ARSENIC METHYLMLONIC ACIDNo results found for: METHYLMAL IgA, IGG No results found for: IGA, IGG CSF PANEL No results found for: NUCCELMANCSF, RBCCSFCT, SEGSCSF, LYMPHSCSF, NUMCELLCTCSF, CSFGLUC, CSFPROTEIN, XANTHOCHROM, MCSBFTYPE, MCS, CSFIGGINDEX, LYMEAB, VDRLSCRNCSF, OLIGOCSF, HSVDNA, ARBOWNILECSF, ENTVPCR, VZVPCR PARANEOPLASTIC PANEL No results found for: PARANEOINTRP, ANNA1, ANNA2, ANNA3, AGNA1, PCA1, PCA2, PCATYPETR, AMPHIPHYSIN,XOLD9YTJ, STRIATMSCLAB, CACHABPQTYPE, CACHABNTYPE, ACHRBINDAB, NEUROKCHAB, NMDARECEPTOR, [id number] THROMBOSIS HOMEOCYSTEINENo results found for: HOMOCYSTEINE THROMBOSIS PANELNo results found for: ACAIGM, [id number] FACTOR V LEIDEN No components found for: [...] sensory. EMG shows no evidence of radiculopathy. ASSESSMENT: 46 Y M with history of HTN, DM, Obesity, ONDINA referred for evaluation of paresthesiae left arm to left hand. On evaluation he has sensory difference in ulnar distribution of left hand. EMG/NCS study shows evidence of bilateral median neuropathy at the wrist, bilateral ulnar neuropathy at the elbow. There was also evidence of a generalized sensorimotor neuropathy. IMPRESSION: 1. Bilateral CTS 2. 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 3. Generalized Neuropathy ? DM related. PLAN/RECOMMENDATIONS: He seems to have bilateral carpal tunnel syndrome and bilateral ulnar neuropathy at the elbow. The neuropathy is worse on the left side which is causing his left hand symptoms. He has a tendency to support his head with bend left elbow. He was advised to avoid doing that to prevent ulnar nerve compression. In addition he has features of a generalized neuropathy on EMG testing. This could be secondary to diabetes. Will obtain routine blood work to rule out other causes. Gabapentin 100 mg TID initiated with plan to titrate up as tolerated. Even though his EMG doesn't show evidence of radiculopathy, he has symptoms suggestive of radiculopathy and paraspinal tenderness on the left side. Will obtain an MRI C spine to evaluate further. Will follow up in one month. Debbie Iglesias MD Department of Neurology [facility] documented in this encounter Plan of Treatment Upcoming Encounters Date Type Department Care Team (Late st Contact Info) Description 12/01/2023 2:00 PM EDT [place] [address] Wale Huntley MD [address] [place] [address], [address] [place] [address] documented as of this encounter Procedures Procedure Name Priority Date/Time Associated Diagnosis Comments PROTEIN ELECTROPHORESIS, URINE, RANDOM Routine 11/15/2016 12:07 PM EDT Idiopathic peripheral neuropathy CRP, ACUTE INFLAMMATION Routine 11/15/2016 12:04 PM EDT Idiopathic peripheral neuropathy MYELIN ASSOCIATED GLYCOPROTEIN AB WITH REFLEX Routine 11/15/2016 12:04 PM EDT Idiopathic peripheral neuropathy LYME IGG & IGM ANTIBODY Routine 11/15/2016 12:04 PM EDT Idiopathic peripheral neuropathy GANGLIOSIDE ANTIBODIES Routine 7 12:04 PM EDT Idiopathic peripheral neuropathy HEPATITIS C ANTIBODY Routine 11/15/2016 12:04 PM EDT Idiopathic peripheral neuropathy METHYLMALONIC ACID, SERUM Routine 11/15/2016 12:04 PM EDT Idiopathic peripheral neuropathy COPPER, SERUM Routine 11/15/2016 12:04 PM EDT Idiopathic peripheral neuropathy GLIADIN ANTIBODIES Routine 11/15/2016 12 :04 PM EDT Idiopathic peripheral neuropathy TISSUE TRANSGLUTAMINASE, IGA Routine 11/15/2016 12:04 PM EDT Idiopathic peripheral neuropathy SYPHILIS ANTIBODY SCREEN WITH REFLEX Routine 11/15/2016 12:04 PM EDT Idiopathic peripheral neuropathy HEAVY METALS SCREEN, BLOOD Routine 11/15/2016 12:04 PM EDT Idiopathic peripheral neuropathy VITAMIN D, 25-HYDROXY Routine 11/15/2016 12:04 PM EDT Idiopathic peripheral neuropathy HIV SCREEN, 4TH GENERATION ([facility]CGP/APD/[facility]H) Routine 11/15/2016 12:04 PM EDT Idiopathic peripheral neuropathy SEDIMENTATION RATE Routine 11/15/2016 12 :04 PM EDT Idiopathic peripheral neuropathy LASHONDA ANTIBODY SCREEN Routine 11/15/2016 1 2:04 PM EDT Idiopathic peripheral neuropathy VITAMIN E Routine 11/15/2016 12:04 PM EDT Idiopathic peripheral neuropathy TSH Routine 11/15/2016 12:04 PM EDT Idiopathic peripheral neuropathy PROTEIN ELECTROPHORESIS, SERUM Routine 11/15/2016 12:04 PM EDT Idiopathic peripheral neuropathy PREALBUMIN Routine 11/15/2016 12:04 PM EDT Idiopathic peripheral neuropathy HEMOGLOBIN A1C Routine 11/15/2016 12:04 PM EDT Idiopathic peripheral neuropathy FOLATE, SERUM Routine 11/15/2016 12:04 PM EDT Idiopathic peripheral neuropathy FERRITIN Routine 11/15/2016 12:04 PM EDT Idiopathic peripheral neuropathy VITAMIN B12 Routine 11/15/2016 12:04 PM EDT Idiopathic peripheral neuropathy documented in this encounter Results * MRI [...] findings, Camila Robbins at 12/11/2016 4:13 PM Debbie Iglesias MD IMG MRI ORDERABLES * (ABNORMAL) Protein Electrophoresis, urine, random (11/15/2016 12:07 PM EDT) U Protein Ran 17(H) 0 - 12 mg/dL [facility] U Albumin 37 % total [facility] U Globulin 63 % total [facility] U M Band None Detected [facility] U PEP Comments See Note [facility] Comment: There is no evidence of clonal free light chains in this patient's urine sample. Urine specimen (specimen) 11/15/2016 12:07 PM EDT 11/15/2016 12:14 PM EDT Narrative Resulting Agency Comment Spec In Lab Debbie Iglesias MD URINE ORDERABLES [facility] [place] [address] * Ganglioside Antibodies (11/15/2016 12:04 PM EDT) Ganglioside Antibodies See Scan Report [facility] Blood specimen (specimen) 11/15/2016 12:04 PM EDT 11/15/2016 2:36 PM EDT Narrative Resulting Agency Comment Spec In Lab Debbie Iglesias MD IMMUNOLOGY ORDERABLE S Performing Organization Address [facility] Co de Phone Number [facility] [place] [address] * Myelin Associated Glycoprotein Ab with Reflex (11/15/2016 12:04 PM EDT) [facility] MAG Ab (IgM) WB NEGATIVE NEGATIVE [facility] Comment: This test was developed and its analytical performance characteristics have been determined by [facility]. It has not been cleared or approved by FDA. This assay has been validated pursuant to the CLIA regulations and is used for clinical purposes. Test performed by: ? [facility] ? [address] ? [place] [address] ? Phone: ??[phone] Director: ??Yeison Jo M.D. Test Reported by [facility], [employer] [facility], [address] [place] [address] Rey Vidal M.D., Ph.D., Director of Laboratories , [place] [id number] Blood specimen (specimen) 11/15/2016 12:04 PM EDT 11/15/2016 1:12 PM EDT Narrative Resulting Agency Comment Spec In Lab Debbie Iglesias MD CHEMISTRY ORDERABLES Performing Organization Address [facility]/ZIP Co de Phone Number [facility] [place] [address] * (ABNORMAL) Methylmalonic acid, serum (11/15/2016 12:04 PM EDT) [facility] Methylmalonic Acid 0.44(H) <=0.40 nmol/mL [facility] Comment: In this sample, the concentration of methylmalonic acid (MMA) was minimally elevated. As the upper limit of the reference range varies in different laboratories from 0.4 to 0.6 nmol/mL. This finding could be considered normal, especially if the patient does not show other signs of vitamin B12 deficiency. ADDITIONAL INFORMATION This test was developed and its performance characteristics determined by [facility] in a manner consistent with CLIA requirements. This test has not been cleared or approved by the U.S. Food and Drug Administration. Test Performed by: [address] [address] Blood specimen (specimen) 11/15/2016 12:04 PM EDT 11/15/2016 1:29 PM EDT Narrative Resulting Agency Comment Spec In Lab Debbie Iglesias MD CHEMISTRY ORDERABLES Performing Organization Address [facility]/State/ZIP Co de Phone Number [facility] [address] * Heavy metals screen, blood (11/15/2016 12:04 PM EDT) Heavy Metals Screen Test ? Result ?Flag ??Unit ?RefValue ------- Heavy Metals Scrn with Demographics ??Arsenic, B ? <1 ?ng/mL ?? 0-12 ? ---ADDITIONAL INFORMATION------- ?This test was developed and its performance characteristics ?determined by [facility] in a manner consistent with CLIA ?requirements. This test has not been cleared or approved by ?the U.S. Food and Drug Administration. ??Lead, B ?<1.0 ?mcg/dL ??0.0-4.9 ? ---ADDITIONAL INFORMATION------- ?Testing performed by Inductively Coupled Plasma-Mass ?Spectrometry (ICP-MS). ?This test was developed and its performance characteristics ?determined by [facility] in a manner consistent with CLIA ?requirements. This test has not been cleared or approved by ?the U.S. Food and Drug Administration. ??Cadmium, B ? 0.3 ? ng/mL ?? 0.0-4.9 ? ---ADDITIONAL INFORMATION------- ?This test was developed and its performance characteristics ?determined by [facility] in a manner consistent with CLIA ?requirements. This test has not been cleared or approved by ?the U.S. Food and Drug Administration. ??Mercury, B ? 2 ? ng/mL ?? 0-9 ? ---ADDITIONAL INFORMATION------- ?This test was developed and its performance characteristics ?determined by [facility] in a manner consistent with CLIA ?requirements. This test has not been cleared or approved by ?the U.S. Food and Drug Administration. ??Venous/Capillary ? Venous ??Patient Street Address ? [address] ??Patient City ? [place] ??Patient State [place] ??Patient Zip Code ? [address] ??Patient County ? [place] ??Patient Home Phone ? [phone] ??Patient Race ? X ??Patient Ethnicity ?X ??Patient Occupation ? X ??Patient Employer ? X ??Guardian First Name ?X ??Guardian Last Name ? X ??Health Care Provider Name ?DEBBIE IGLESIAS ??Health Care Provider Street Address ?[address] ??Health Care Provider City ?[place] ??Health Care Provider State ? [place] ??Health Care Provider Zip Code ?[address] ??Health Care Provider Phone ? [phone] ??Submitting Laboratory Phone ?[phone] ?Test Performed by: ?[facility] ?[address] [id number] [facility] Blood specimen (specimen) 11/15/2016 12:04 PM EDT 11/15/2016 1:29 PM EDT Narrative Resulting Agency Comment Spec In Lab Debbie Iglesias MD CHEMISTRY ORDERABLES [facility] [place] [address] * Vitamin E (11/15/2016 12:04 PM EDT) Pathologist [facility] Vitamin E 10.3 5.5 - 17.0 mg/L [facility] Comment: ADDITIONAL INFORMATION This test was developed and its performance characteristics determined by [facility] in a manner consistent with CLIA requirements. This test has not been cleared or approved by the U.S. Food and Drug Administration. Test Performed by: [facility] [address] [place] [address] Blood specimen (specimen) 11/15/2016 12:04 PM EDT 11/15/2016 1:29 PM EDT Narrative Resulting Agency Comment Spec In Lab Debbie Iglesias MD CHEMISTRY ORDERABLES Performing Organization Address [facility] Co de Phone Number [facility] [address] * Copper, serum (11/15/2016 12:04 PM EDT) Copper 1.22 0.75 - 1.45 mcg/mL [facility] Comment: ADDITIONAL INFORMATION This test was developed and its performance characteristics determined by [facility] in a manner consistent with CLIA requirements. This test has not been cleared or approved by the U.S. Food and Drug Administration. Test Performed by: [facility] - [address] [address] Blood specimen (specimen) 11/15/2016 12:04 PM EDT 11/15/2016 1:29 PM EDT Narrative Resulting Agency Comment Spec In Lab Debbie Iglesias MD CHEMISTRY ORDERABLES Performing Organization Address [facility] Co de Phone Number [facility] [address] * (ABNORMAL) Vitamin D, 25-Hydroxy (11/15/2016 12:04 PM EDT) 25-OH Vit D Total 28(L) 30 - 100 ng/mL [facility] Comment: Deficient <10 ng/mL Insufficient 10 to 29 ng/mL Sufficient 30 to 100 ng/mL Potential Intoxication >100 ng/mL According to the US National Osteoporosis Foundation, Vitamin D concentrations >30 ng/mL are sufficient to protect bone health. ??The National Kidney Foundation has similarly stated that patients with Vitamin D concentrations <30ng/mL should be considered to be insufficient or deficient. http://[employer].Crisp/nkf-guidelines http://[employer]/nejm-VitD The [employer] i[employer] Vitamin D Immunoassay detects both 25-OH Vitamin D2 and 25-OH Vitamin D3, but only a total Vitamin D concentration is reported. Blood specimen (specimen) 11/15/2016 12:04 PM EDT 11/15/2016 1:30 PM EDT Narrative Resulting Agency Comment Spec In Lab Debbie Iglesias MD CHEMISTRY ORDERABLES Performing Organization Address City/[facility]/ZIP Co de Phone Number [facility] [address] * Prealbumin (11/15/2016 12:04 PM EDT) [facility] Prealbumin 28 20 - 40 mg/dL [facility] Comment: Prealbumin levels are generally lower in the pediatric population; adult concentrations are usually attained near puberty. Blood specimen (specimen) 11/15/2016 12:04 PM EDT 11/15/2016 12:12 PM EDT Narrative Resulting Agency Comment Spec In Lab Debbie Iglesias MD CHEMISTRY ORDERABLES Performing Organization Address [facility]/ZIP Co de Phone Number [facility] [place] [address] * Ferritin (11/15/2016 12:04 PM EDT) [facility] Ferritin 253 30 - 400 ng/mL [facility] Comment: Pediatric reference ranges not verified at [facility], interpret with caution. Reference ranges for females greater than 50 years of age approach values for men, i.e., 30-400 ng/mL. Blood specimen (specimen) 11/15/2016 12:04 PM EDT 11/15/2016 12:12 PM EDT Narrative Resulting Agency Comment Spec In Lab Debbie Iglesias MD CHEMISTRY ORDERABLES Performing Organization Address City/[facility]/ZIP Co de Phone Number [facility] [place] [address] * Protein Electrophoresis, serum (11/15/2016 12:04 PM EDT) [facility] Total Prot Elec 6.9 6.1 - 8.0 gm/dL [facility] Albumin Elect 4.37 3.60 - 6.00 gm/dL [facility] Alpha1-Globul in 0.16 0.10 - 0.30 gm/dL [facility] Alpha2-Globul in 0.70 0.40 - 0.90 gm/dL [facility] Beta Globulin 0.78 0.50 - 1.00 gm/dL [facility] Gamma Globulin 0.89 0.50 - 1.30 gm/dL [facility] M1 Band None Detected [facility] Blood specimen (specimen) 11/15/2016 12:04 PM EDT 11/15/2016 12:12 PM EDT Narrative Resulting Agency Comment Spec In Lab Debbie Iglesias MD CHEMISTRY ORDERABLES Performing Organization Address City/[facility]/[place] [address] * Gliadin (Deamidated) Antibodies (11/15/2016 12:04 PM EDT) [facility] Gliadin IgG Deamidated <10.0 <20.0 (Negative) U [facility] Comment: Test Performed by: [address] [address] Gliadin IgA Deamidated <10.0 <20.0 (Negative) U [facility] Comment: Test Performed by: [address] [address] Blood specimen (specimen) 11/15/2016 12:04 PM EDT 11/15/2016 1:29 PM EDT Narrative Resulting Agency Comment Spec In Lab Debbie Iglesias MD IMMUNOLOGY ORDERABLE S Performing Organization Address City/[facility]/ZIP Co de Phone Number [facility] [place] [address] * Tissue transglutaminase, IgA (11/15/2016 12:04 PM EDT) [facility] TTG IgA Ab 0.5 0.1 - 10.0 u/ml [facility] Comment: Negative = <7 U/mL Equivocal = 7-10 U/mL Positive = >10 U/mL Blood specimen (specimen) 11/15/2016 12:04 PM EDT 11/15/2016 1:30 PM EDT Narrative Resulting Agency Comment Spec In Lab Debbie Iglesias MD IMMUNOLOGY ORDERABLE S [facility] [place] [address] * LASHONDA (11/15/2016 12:04 PM EDT) [facility] LASHONDA Neg Neg [facility] Blood specimen (specimen) 11/15/2016 12:04 PM EDT 11/15/2016 1:30 PM EDT Narrative Resulting Agency Comment Spec In Lab Debbie Iglesias MD IMMUNOLOGY ORDERABLE S [facility] [place] [address] * Hepatitis C Antibody (11/15/2016 12:04 PM EDT) [facility] Hepatitis C Ab Negative Negative [facility] Comment: An updated Hepatitis C Ab assay reagent was implemented on 06/26/16. Please contact Dr. Deras at [phone] with any questions or concerns. Blood specimen (specimen) 11/15/2016 12:04 PM EDT 11/15/2016 12:12 PM EDT Narrative Resulting Agency Comment Spec In Lab Debbie Iglesias MD IMMUNOLOGY ORDERABLE S [facility] [place] [address] * HIV Screen, 4th Generation (11/15/2016 12:04 PM EDT) HIV-1/2 Ab and Ag Negative Negative [facility] Comment: This 4th Generation HIV [...] Narrative Resulting Agency Comment Spec In Lab Debbie Iglesias MD IMMUNOLOGY ORDERABLE S Performing Organization Address City/[facility]/ZIP Co de Phone Number [facility] [address] * Syphilis Antibody (11/15/2016 12:04 PM EDT) Syphilis IgG/IgM Negative Negative [facility] Blood specimen (specimen) 11/15/2016 12:04 PM EDT 11/15/2016 12:12 PM EDT Narrative Resulting Agency Comment Spec In Lab Debbie Iglesias MD IMMUNOLOGY ORDERABLE S Performing Organization Address [facility] Co de Phone Number [facility] [address] * Lyme IgG & IgM Antibody (11/15/2016 12:04 PM EDT) Lyme Screening Antibody Neg Neg [facility] Blood specimen (specimen) 11/15/2016 12:04 PM EDT 11/16/2016 3:39 PM EDT Narrative Resulting Agency Comment Spec In Lab Debbie Iglesias MD IMMUNOLOGY ORDERABLE S Performing Organization Address City/[facility] Co de Phone Number [facility] [place] [address] * Vitamin B12 (11/15/2016 12:04 PM EDT) Vitamin B-12 333 207 - 974 pg/mL [facility] Blood specimen (specimen) 11/15/2016 12:04 PM EDT 11/15/2016 12:12 PM EDT Narrative Resulting Agency Comment Spec In Lab Debbie Iglesias MD CHEMISTRY ORDERABLES Performing Organization Address [facility] Co de Phone Number [facility] [place] [address] * (ABNORMAL) CRP, acute inflammation (11/15/2016 12:04 PM EDT) CRP 12.9(H) <=4.9 mg/L [facility] Blood specimen (specimen) 11/15/2016 12:04 PM EDT 11/15/2016 12:12 PM EDT Narrative Resulting Agency Comment Spec In Lab Debbie Iglesias MD CHEMISTRY ORDERABLES Performing Organization Address [facility] Co de Phone Number [facility] [place] [address] * Sedimentation rate (11/15/2016 12:04 PM EDT) Sed Rate 13 0 - 15 mm/hr [facility] Blood specimen (specimen) 11/15/2016 12:04 PM EDT 11/15/2016 12:12 PM EDT Narrative Resulting Agency Comment Spec In Lab Debbie Iglesias MD HEMATOLOGY ORDERABLE S Performing Organization Address [facility] Co de Phone Number [facility] [place] [address] * Folate, serum (11/15/2016 12:04 PM EDT) Folate Lvl 14.5 4.8 - 24.2 ng/mL [facility] Blood specimen (specimen) 11/15/2016 12:04 PM EDT 11/15/2016 12:12 PM EDT Narrative Resulting Agency Comment Spec In Lab Debbie Iglesias MD CHEMISTRY ORDERABLES [facility] [place] [place] [address] * (ABNORMAL) Hemoglobin A1c (11/15/2016 12:04 PM EDT) Hemoglobin A1C 7.9(H) 4.3 - 5.6 % [facility] Comment: Reference Range: 4.3 - [...] Mellitus, Diabetes Care 2013; 36: Suppl. 1, S67-13 Est Avg Gluc 180 mg/dL [facility] Comment: eAG equivalents for HbA1c [...] into estimated average glucose values. ??Diabetes Care 2008:31(8):5959-3483. Blood specimen (specimen) 11/15/2016 12:04 PM EDT 11/15/2016 12:12 PM EDT Narrative Resulting Agency Comment Spec In Lab Debbie Iglesias MD CHEMISTRY ORDERABLES Performing Organization Address [facility] Co de Phone Number [facility] [place] [address] * TSH (11/15/2016 12:04 PM EDT) TSH 2.67 0.27 - 4.20 mlU/ML [facility] Blood specimen (specimen) 11/15/2016 12:04 PM EDT 11/15/2016 12:12 PM EDT Narrative Resulting Agency Comment Spec In Lab Debbie Iglesias MD CHEMISTRY ORDERABLES Performing Organization Address [facility] Co de Phone Number [facility] [place] [address] documented in this encounter Visit Diagnoses Diagnosis Idiopathic peripheral neuropathy Unspecified hereditary and idiopathic peripheral neuropathy Carpal tunnel syndrome, bilateral Carpal tunnel syndrome Ulnar neuropathy at elbow of left upper extremity Ulnar neuropathy at elbow of right upper extremity Idiopathic peripheral neuropathy Unspecified hereditary and idiopathic peripheral neuropathy Carpal tunnel syndrome, bilateral Carpal tunnel syndrome Ulnar neuropathy at elbow of left upper extremity Ulnar neuropathy at elbow of right upper extremity documented in this encounter Care Teams Candy Spreader Relationship Specialty Start Date End Date Munira Mac APRN [address] [place] [id number] PCP - General Family Medicine 08/12/16 documented as of this encounter
--- NOTE | 2023-10-28 10:00 | DI.RAD_ITS ---
Exam(s) XR KNEE LT 2V AP,LAT EXAM: XR KNEE LT 2V AP,LAT CLINICAL HISTORY: Disability determination, Z02.71; Lt knee pain,state severity of degenerati. TECHNIQUE: 2D digital imaging was performed. Two views. COMPARISON: No exams were available for comparison FINDINGS: BONES: No acute fracture is present. No bony destructive lesion is seen. Hardware related to ACL r epair noted in the distal femur and proximal tibia. Corticated bony density adjacent to the lateral tibial plateau appears old. JOINTS: Mild narrowing of the medial femoral tibial joint. Mild periarticular spurring. No joint ef fusion is seen. SOFT TISSUE: Normal. IMPRESSION: Postsurgical and degenerative changes. DATA REPOSITORY: RADIATION DOSE DELIVERED:
--- NOTE | 2023-10-28 10:00 | DI.RAD_ITS ---
Exam(s) XR LUMBAR SPINE AP, LAT EXAM: XR LUMBAR SPINE AP, LAT CLINICAL HISTORY: Disability determination, Z02.71; LBP,state severity of degeneration. TECHNIQUE: 2D digital imaging was performed. AP and lateral views were performed upright. COMPARISON: No exams were available for comparison FINDINGS: BONES: No fracture or destructive lesion. Vertebral body heights are maintained. facet hypertrophy identified greatest L4-5 and L5-S1.. DISKS: Severe narrowing of the L4-5 disc space. Prominent endplate osteophytes as well as sclerosis. Of moderate narrowing of the L1-2 disc space and small endplate osteophytes. Remaining disc spaces are maintained. ALIGNMENT: Lumbar spinal alignment is within normal limits. SOFT TISSUE: Aorta calcified and normal in diameter. IMPRESSION: Degenerative changes, greatest at L4-5. DATA REPOSITORY: RADIATION DOSE DELIVERED:
== END ==
PROVIDERS: Visit Provider Pediatrics Pediatric Rheumatology
DX: M54.50 Low back pain, unspecified (principal); M25.562 Pain in left knee; Z02.71 Encounter for disability determination; M47.816 Spondylosis without myelopathy or radiculopathy, lumbar region; M48.061 Spinal stenosis, lumbar region without neurogenic claudication
CPT/HCPCS: 72100; 73560